=== PATIENT | female | born 1960 | race American Indian/Alaskan Native ===

== ENCOUNTER 2016-09-22 08:42 | Emergency (ER) | payer MEDICARE ==
[2016-09-22] MEDS ORDERED: DUONEB 0.5 MG-3 MG/3 ML SOLN IH ONE (09:37)
[2016-09-22 09:49] LABS: Basophils % (Auto) 0.5 % (0.0-1.8); Eosinophils % (Auto) 2.9 % (0.0-4.3); Hematocrit 34.4 % (30.3-42.9); Hemoglobin 11.2 gm/dl (10.1-14.3); Mean Corpuscular HGB Conc 33 % (30-34); Mean Corpuscular Hemoglobin 28 pg (28-32); Mean Corpuscular Volume 85 fl (79-97); Platelet Count 278 K/mm3 (140-440); Red Blood Count 4.04 M/mm3 (3.65-5.03); Red Cell Distribution Width 15.4 % (13.2-15.2)
[2016-09-22 10:05] LABS: Anion Gap 16 mmol/L; Blood Urea Nitrogen 15 mg/dL (7-17); Carbon Dioxide 24 mmol/L (22-30); Chloride 103.2 mmol/L (98-107); Glucose 94 mg/dL (65-100); Potassium 3.8 mmol/L (3.6-5.0); Sodium 139 mmol/L (137-145)
[2016-09-22 10:49] LABS: Calcium 8.9 mg/dL (8.4-10.2)
--- NOTE | 2016-09-22 10:53 | XRay Report ---
CHEST 2 VIEWS INDICATION: Shortness of breath. COMPARISON: None similar at this institution. FINDINGS: PA and lateral chest radiographs demonstrate slight exaggerated cardiomediastinal silhouette/top normal heart size. No pleural effusions or CHF. Partially imaged lower cervical fusion hardware. Multilevel moderate thoracic spondylosis. CONCLUSION: Slight cardiomegaly, as described. Thank you for the opportunity to participate in this patient's care.
[2016-09-22] MEDS ORDERED: ATROVENT IH ONE (17:57)
[2016-09-22] MEDS ORDERED: PROVENTIL IH ONE (17:57)
[2016-09-22] MEDS ORDERED: MAGNESIUM SULFATE 2GM/50ML 2 GM/50 ML BAG IV ONE (17:58)
--- NOTE | 2016-09-22 18:05 | Emergency Department Report ---
HPI - General Chief Complaint: Dyspnea/Respdistress Time Seen by Provider: 09/22/16 17:44 - HPI HPI: Room 23 The patient is a 56-year-old female presenting with a chief complaint of asthma and right hip pain. The patient states she has had pain in her right hip radiating down her leg for several months. Patient states she's been diagnosed with spinal stenosis in the past. The patient states 3 days ago her asthma began to "flareup." Patient states she developed wheezing and a nonproductive cough associated with shortness of breath consistent with her asthma. The patient states she did not have an inhaler so she went to an urgent care facility but could not afford the co-pay. The patient states she subsequently came to the ED for evaluation. Patient denies any history of fever. Location: Lungs, right hip Duration: [see above] Quality: Shortness of breath Severity: Moderate Modifying factors: [see above] Context: [see above] Mode of transportation: [not driving] ED Past Medical Hx - Past Medical History Previous Medical History?: Yes Hx Hypertension: Yes Hx GERD: Yes Hx Asthma: Yes (chronic bronchitis) Hx COPD: Yes Additional medical history: CAD, hyperthyroid, carpal tunnel - Surgical History Past Surgical History?: Yes Hx Coronary Stent: Yes (4) Hx Cholecystectomy: Yes Additional Surgical History: neck fusion, right hand, back surgery, tonsillectomy, tubal ligation - Social History Smoking Status: Current Some Day Smoker (1/3 pack per day) Substance Use Type: None - Medications Home Medications: Home Medications Medication Instructions Recorded Confirmed Last Taken Type ALBUTEROL Inhaler [Proair] 2 puff IH QID PRN #1 inhalation 09/22/16 Unknown Rx HYDROcodone/APAP 5-325 [[place] 1 - 2 each PO Q6HR PRN #14 tablet 09/22/16 Unknown Rx 5/325] Prednisone [predniSONE 10 mg 10 mg PO .TAPER #1 tab.ds.pk 09/22/16 Unknown Rx (6-Day Pack, 21 Tabs)] ED Review of Systems ROS: Stated complaint: SOB/BACK PAIN Other details as noted in HPI Comment: All other systems reviewed and negative Constitutional: denies: fever Eyes: denies: eye pain, eye discharge, vision change ENT: denies: ear pain, throat pain Respiratory: cough, shortness of breath, wheezing Cardiovascular: denies: chest pain, palpitations Endocrine: no symptoms reported Gastrointestinal: denies: abdominal pain, nausea, diarrhea Genitourinary: denies: urgency, dysuria, discharge Musculoskeletal: arthralgia, myalgia. denies: back pain, joint swelling Skin: denies: rash, lesions Neurological: denies: headache, weakness, paresthesias Psychiatric: denies: anxiety, depression Hematological/Lymphatic: denies: easy bleeding, easy bruising Physical Exam - Physical Exam Vital Signs: Vital Signs 09/22/16 09/22/16 08:57 14:32 Temperature 98.6 F 97.8 F Pulse Rate 80 63 Respiratory 20 16 Rate Blood Pressure 148/100 Blood Pressure 137/96 [Right] O2 Sat by Pulse 99 99 Oximetry Physical Exam: GENERAL: The patient is well-developed well-nourished female lying on stretcher not appearing to be in acute distress. [] HEENT: Normocephalic. Atraumatic. Extraocular motions are intact. Patient has moist mucous membranes. NECK: Supple. No meningitic signs are noted. There is no adenopathy noted. CHEST/LUNGS: Diffuse wheezing. There is no respiratory distress noted. HEART/CARDIOVASCULAR: Regular. There is no tachycardia. There is no gallop rub or murmur. ABDOMEN: Abdomen is soft, nontender. Patient has normal bowel sounds. There is no abdominal distention. SKIN: There is no rash. There is no edema. There is no diaphoresis. NEURO: The patient is awake, alert, and oriented. The patient is cooperative. The patient has normal speech and gait. MUSCULOSKELETAL: There is right buttocks pain rating on the right lower extremity consistent with sciatica. There is no evidence of acute injury. ED Course Vital Signs 09/22/16 09/22/16 08:57 14:32 Temperature 98.6 F 97.8 F Pulse Rate 80 63 Respiratory 20 16 Rate Blood Pressure 148/100 Blood Pressure 137/96 [Right] O2 Sat by Pulse 99 99 Oximetry - Reevaluation(s) Reevaluation #1: 09/22/16 19:57 Patient resting comfortably. Patient states she feels much improved. Lung sounds much improved as the wheezing has essentially disappeared. Patient still has rhonchi. ED Medical Decision Making - Lab Data Result diagrams: 09/22/16 09:29 06/21/17 09:29 Laboratory Tests 09/22/16 09/22/16 09:29 09:29 WBC 7.0 RBC 4.04 Hgb 11.2 Hct 34.4 MCV 85 MCH 28 MCHC 33 RDW 15.4 H Plt Count 278 Lymph % (Auto) 31.2 [place] % (Auto) 10.0 H Eos % (Auto) 2.9 Baso % (Auto) 0.5 Lymph # 2.2 [place] # 0.7 Eos # 0.2 Baso # 0.0 Seg Neutrophils % 55.4 Seg Neutrophils # 3.9 Carbon Dioxide 24 BUN 15 Creatinine 1.0 Estimated GFR 57 BUN/Creatinine Ratio 15.00 Glucose 94 Calcium 8.9 Troponin T < 0.010 Sodium 139, potassium 3.8, chloride 103.2 - EKG Data -: EKG Interpreted by Me EKG shows normal: sinus rhythm Rate: normal - EKG Data When compared to previous EKG there are: previous EKG unavailable Interpretation: other (no ischemic changes seen) - Radiology Data Radiology results: image reviewed (chest x-ray) interpreted by me: Chest x-ray-no focal infiltrates, no pneumothorax - Differential Diagnosis acute asthma exacerbation, pneumonia, bronchitis, sciatica Critical care attestation.: If time is entered above; I have spent that time in minutes in the direct care of this critically ill patient, excluding procedure time. ED Disposition Clinical Impression: Acute asthma exacerbation, Shortness of breath, Sciatica Disposition: - TO HOME OR SELFCARE Is pt being admited?: No Does the pt Need Aspirin: No Condition: Stable Instructions: Asthma (ED), Sciatica (ED) Additional Instructions: Return to the emergency department immediately should you develop worsening symptoms, fever, inability to tolerate food or liquid or any other concerns. Prescriptions: ALBUTEROL Inhaler [Proair] 2 puff IH QID PRN #1 inhalation PRN Reason: Shortness Of Breath HYDROcodone/APAP 5-325 [[place] 5/325] 1 - 2 each PO Q6HR PRN #14 tablet PRN Reason: Pain Prednisone [predniSONE 10 mg (6-Day Pack, 21 Tabs)] 10 mg PO .TAPER #1 tab.ds.pk Referrals: ED ESCOBEDO MD [Staff Physician] - 3-5 Days (Dr. Escobedo is a primary doctor. Please follow up with him for further evaluation) BAKARI DRUMMOND MD [Staff Physician] - 3-5 Days (Dr. Drummond is a roustabout head. Please follow up with him for further evaluation) LUNA BUSTAMANTE MD [Staff Physician] - 3-5 Days (Dr. Bustamante is an orthopedic surgeon. Please follow up with him for further evaluation of her sciatica) Time of Disposition: 20:08
[2016-09-22 22:04] VITALS: BP 130/79
== END 2016-09-22 21:45 | disposition home or self-care (01) ==
LOC: ED 08:42
DX: J45.901 Unspecified asthma with (acute) exacerbation (principal); M54.30 Sciatica, unspecified side; I10 Essential (primary) hypertension; K21.9 Gastro-esophageal reflux disease without esophagitis; J44.9 Chronic obstructive pulmonary disease, unspecified
CPT/HCPCS: 36415; 71020; 80048; 84484; 85025; 93005; 93010; 94640; 96365; 96375; 99284; J2930; J3475

== ENCOUNTER 2016-12-28 17:27 | Emergency (ER) | payer MEDICARE ==
--- NOTE | 2016-12-28 18:00 | Emergency Department Report ---
Chief Complaint: Chest Pain Stated Complaint: CHEST AND BACK PAIN Time Seen by Provider: 12/28/16 17:54 - HPI History of Present Illness: PT c/o intermittent cp x 1 week. PT states the cp started soon after she was dc 'd from hospital after cardiac cath. PT also c/o headaches and blurred vision PT States no changes to her bp medication. PT states she is taking her bp medication - ROS Review of Systems: + nausea - vomiting - Exam Vital Signs: Vital Signs 12/28/16 17:48 Temperature 98.4 F Pulse Rate 91 H Respiratory 18 Rate Blood Pressure 205/123 O2 Sat by Pulse 98 Oximetry Physical Exam: PT is alert and appropriate PT with steady gait gcs 15 MSE screening note: Focused history and physical exam performed. Due to findings the following was ordered: ekg, labs, xr, ct ED Disposition for MSE Condition: Stable
[2016-12-28 18:41] LABS: Basophils % (Auto) 0.7 % (0.0-1.8); Eosinophils % (Auto) 3.8 % (0.0-4.3); Hematocrit 36.8 % (30.3-42.9); Hemoglobin 11.7 gm/dl (10.1-14.3); Mean Corpuscular HGB Conc 32 % (30-34); Mean Corpuscular Hemoglobin 27 pg (28-32); Mean Corpuscular Volume 86 fl (79-97); Platelet Count 299 K/mm3 (140-440); Red Cell Distribution Width 15.2 % (13.2-15.2)
[2016-12-28 18:50] LABS: INR 0.9 (0.87-1.13)
[2016-12-28 18:51] LABS: Partial Thromboplastin Time 27.7 Sec. (24.2-36.6)
[2016-12-28 19:33] LABS: Alanine Aminotransferase 11 units/L (7-56); Albumin 3.8 g/dL (3.9-5); Albumin/Globulin Ratio 0.8 %; Alkaline Phosphatase 78 units/L (35-129); Anion Gap 18 mmol/L; BUN/Creatinine Ratio 17.14; Blood Urea Nitrogen 12 mg/dL (7-17); Calcium 9.3 mg/dL (8.4-10.2); Carbon Dioxide 22 mmol/L (22-30); Chloride 103.2 mmol/L (98-107); Glucose 89 mg/dL (65-100); Potassium 3.4 mmol/L (3.6-5.0); Sodium 140 mmol/L (137-145); Total Protein 8.6 g/dL (6.3-8.2)
--- NOTE | 2016-12-28 20:08 | Cat Scan Report ---
FINAL REPORT PROCEDURE: CT HEAD/BRAIN WO CON TECHNIQUE: Computerized tomography of the head was performed without contrast material. HISTORY: headache, htn 205/123, blurred vision COMPARISON: No prior studies are available for comparison. FINDINGS: Skull and scalp: Normal. Paranasal sinuses: Normal. Ventricles and subarachnoid spaces: Normal. Cerebrum: No evidence of hemorrhage, acute infarction or mass . Cerebellum and brainstem: No evidence of hemorrhage, acute infarction or mass. Vasculature: Normal. Comments: None. IMPRESSION: Normal Examination
[2016-12-28] MEDS ORDERED: MORPHINE IV ONE (20:48)
--- NOTE | 2016-12-28 20:49 | Emergency Department Report ---
ED Chest Pain HPI - General Chief Complaint: Chest Pain Stated Complaint: CHEST AND BACK PAIN Time Seen by Provider: 12/28/16 17:54 Source: patient Mode of arrival: Ambulatory Limitations: No Limitations - History of Present Illness Initial Comments: She is a 56-year-old female past medical history of coronary artery disease who presents with headache and chest pain. Patient states that her chest pain has been going on for 1 week. Patient states that the onset of chest and headache was gradual. Severity scale (0 -10): 7 - Related Data Home Medications Medication Instructions Recorded Confirmed Last Taken Cyanocobalamin [Vitamin B-12] 1,000 mcg PO DAILY 12/17/16 12/28/16 12/28/16 Naltrexone (Nf) [Revia (Nf)] 50 mg PO QAM 12/17/16 12/28/16 12/28/16 Quetiapine Fumarate [QUEtiapine 400 mg PO HS 12/17/16 12/28/16 12/28/16 Fumarate] buPROPion XL [Wellbutrin XL] 150 mg PO QAM 12/17/16 12/28/16 12/28/16 traZODone [Desyrel] 100 mg PO QDAY 12/17/16 12/28/16 12/16/16 Albuterol Sulfate [Ventolin HFA] 1 puff PO PRN PRN 12/28/16 12/28/16 Unknown AtorvaSTATin [Lipitor] 80 mg PO QDAY 12/28/16 12/28/16 Unknown Carvedilol [Coreg] 25 mg PO QDAY 12/28/16 12/28/16 Unknown Duloxetine HCl [DULoxetine] 60 mg PO QDAY 12/28/16 12/28/16 Unknown Escitalopram [Lexapro] 10 mg PO QDAY 12/28/16 12/28/16 Unknown Ferrous Sulfate [Feosol 325 MG tab] 0.5 tab PO QDAY 12/28/16 12/28/16 Unknown Furosemide [Lasix TAB] 40 mg PO QDAY 12/28/16 12/28/16 Unknown HYDROcodone/APAP 7.5-325 [[place] 1 tab PO PRN PRN 12/28/16 12/28/16 Unknown 7.5-325 mg TAB] ISOSORBIDE MONOnitrate [Imdur ER] 30 mg PO PRN 12/28/16 12/28/16 Unknown Labetalol [Normodyne TAB] 200 mg PO QDAY 12/28/16 12/28/16 Unknown Levothyroxine [Synthroid] 100 mcg PO QDAY 12/28/16 12/28/16 Unknown Lisinopril [Zestril] 40 mg PO QDAY 12/28/16 12/28/16 Unknown Mirtazapine [Remeron] 30 mg PO QDAY 12/28/16 12/28/16 Unknown Nitroglycerin [Nitrostat] 0.4 mg PO PRN PRN 12/28/16 12/28/16 Unknown Olanzapine [ZyPREXA] 20 mg PO PRN 12/28/16 12/28/16 Unknown Pantoprazole [Protonix TAB] 40 mg PO QDAY 12/28/16 12/28/16 Unknown amLODIPine [Norvasc] 10 mg PO QDAY 12/28/16 12/28/16 Unknown hydrOXYzine PAMOATE [Vistaril] 25 mg PO QDAY 12/28/16 12/28/16 Unknown Previous Rx's Medication Instructions Recorded Last Taken Type ALBUTEROL Inhaler [ProAir HFA 2 puff IH Q4H PRN #1 inha 12/20/16 12/28/16 Rx Inhaler] Aspirin EC [Aspirin Enteric Coated 81 mg PO QDAY #30 tablet 12/20/16 12/28/16 Rx TAB] Clopidogrel [Plavix] 75 mg PO QDAY #30 tablet 12/20/16 12/28/16 Rx Gabapentin [Neurontin] 600 mg PO BID #60 tablet 12/20/16 12/28/16 Rx Ibuprofen [Motrin 600 MG tab] 600 mg PO Q12H PRN #60 tablet 12/20/16 12/28/16 Rx Levothyroxine [Synthroid] 150 mcg PO QAM #30 tablet 12/20/16 12/28/16 Rx Butalb/Acetamin/Caff 50-325-40 1 tab PO Q6HR PRN #15 tab 12/28/16 Unknown Rx [Fioricet] Allergies Allergy/AdvReac Type Severity Reaction Status Date / Time No Known Allergies Allergy Verified 12/17/16 11:28 Heart Score - HEART Score History: Slightly suspicious EKG: Normal Age: 45-65 Risk factors: > 3 risk factors or hx of atherosclerotic disease Troponin: < normal limit HEART Score: 3 ED Review of Systems ROS: Stated complaint: CHEST AND BACK PAIN Other details as noted in HPI Constitutional: denies: chills, fever Eyes: denies: eye pain, eye discharge, vision change ENT: denies: ear pain, throat pain Respiratory: denies: cough, shortness of breath, wheezing Cardiovascular: chest pain. denies: palpitations Endocrine: no symptoms reported Gastrointestinal: denies: abdominal pain, nausea, diarrhea Genitourinary: denies: urgency, dysuria, discharge Musculoskeletal: denies: back pain, joint swelling, arthralgia Skin: denies: rash, lesions Neurological: other (tension headache). denies: headache, weakness, paresthesias Psychiatric: denies: anxiety, depression Hematological/Lymphatic: denies: easy bleeding, easy bruising ED Past Medical Hx - Past Medical History Hx Hypertension: Yes Hx Diabetes: No Hx GERD: Yes Hx Asthma: Yes (chronic bronchitis) Hx COPD: Yes Hx HIV: No Additional medical history: CAD, hyperthyroid, carpal tunnel - Surgical History Hx Coronary Stent: Yes (4) Hx Cholecystectomy: Yes Additional Surgical History: neck fusion, right hand, back surgery, tonsillectomy, tubal ligation - Social History Smoking Status: Current Every Day Smoker Substance Use Type: None - Medications Home Medications: Home Medications Medication Instructions Recorded Confirmed Last Taken Type Cyanocobalamin [Vitamin B-12] 1,000 mcg PO DAILY 12/17/16 12/28/16 12/28/16 History Naltrexone (Nf) [Revia (Nf)] 50 mg PO QAM 12/17/16 12/28/16 12/28/16 History Quetiapine Fumarate [QUEtiapine 400 mg PO HS 12/17/16 12/28/16 12/28/16 History Fumarate] buPROPion XL [Wellbutrin XL] 150 mg PO QAM 12/17/16 12/28/16 12/28/16 History traZODone [Desyrel] 100 mg PO QDAY 12/17/16 12/28/16 12/16/16 History ALBUTEROL Inhaler [ProAir HFA 2 puff IH Q4H PRN #1 inha 12/20/16 12/28/16 Rx Inhaler] Aspirin EC [Aspirin Enteric Coated 81 mg PO QDAY #30 tablet 12/20/16 12/28/16 Rx TAB] Clopidogrel [Plavix] 75 mg PO QDAY #30 tablet 12/20/16 12/28/16 12/28/16 Rx Gabapentin [Neurontin] 600 mg PO BID #60 tablet 12/20/16 12/28/16 12/28/16 Rx Ibuprofen [Motrin 600 MG tab] 600 mg PO Q12H PRN #60 tablet 12/20/16 12/28/16 Rx Levothyroxine [Synthroid] 150 mcg PO QAM #30 tablet 12/20/16 12/28/16 12/28/16 Rx Albuterol Sulfate [Ventolin HFA] 1 puff PO PRN PRN 12/28/16 12/28/16 Unknown History AtorvaSTATin [Lipitor] 80 mg PO QDAY 12/28/16 12/28/16 Unknown History Butalb/Acetamin/Caff 50-325-40 1 tab PO Q6HR PRN #15 tab 12/28/16 Unknown Rx [Fioricet] Carvedilol [Coreg] 25 mg PO QDAY 12/28/16 12/28/16 Unknown History Duloxetine HCl [DULoxetine] 60 mg PO QDAY 12/28/16 12/28/16 Unknown History Escitalopram [Lexapro] 10 mg PO QDAY 12/28/16 12/28/16 Unknown History Ferrous Sulfate [Feosol 325 MG tab] 0.5 tab PO QDAY 12/28/16 12/28/16 Unknown History Furosemide [Lasix TAB] 40 mg PO QDAY 12/28/16 12/28/16 Unknown History HYDROcodone/APAP 7.5-325 [[place] 1 tab PO PRN PRN 12/28/16 12/28/16 Unknown History 7.5-325 mg TAB] ISOSORBIDE MONOnitrate [Imdur ER] 30 mg PO PRN 12/28/16 12/28/16 Unknown History Labetalol [Normodyne TAB] 200 mg PO QDAY 12/28/16 12/28/16 Unknown History Levothyroxine [Synthroid] 100 mcg PO QDAY 12/28/16 12/28/16 Unknown History Lisinopril [Zestril] 40 mg PO QDAY 12/28/16 12/28/16 Unknown History Mirtazapine [Remeron] 30 mg PO QDAY 12/28/16 12/28/16 Unknown History Nitroglycerin [Nitrostat] 0.4 mg PO PRN PRN 12/28/16 12/28/16 Unknown History Olanzapine [ZyPREXA] 20 mg PO PRN 12/28/16 12/28/16 Unknown History Pantoprazole [Protonix TAB] 40 mg PO QDAY 12/28/16 12/28/16 Unknown History amLODIPine [Norvasc] 10 mg PO QDAY 12/28/16 12/28/16 Unknown History hydrOXYzine PAMOATE [Vistaril] 25 mg PO QDAY 12/28/16 12/28/16 Unknown History ED Physical Exam - General Limitations: No Limitations ED Course Vital Signs 12/28/16 12/28/16 12/28/16 17:48 19:30 19:45 Temperature 98.4 F Pulse Rate 91 H 79 Respiratory 18 18 Rate Blood Pressure 205/123 181/122 O2 Sat by Pulse 98 97 98 Oximetry 12/28/16 12/28/16 12/28/16 20:00 20:15 20:30 Temperature Pulse Rate 77 78 76 Respiratory 21 19 20 Rate Blood Pressure 178/113 168/109 159/112 O2 Sat by Pulse 96 96 95 Oximetry 12/28/16 12/28/16 12/28/16 20:45 21:00 21:15 Temperature Pulse Rate 81 80 87 Respiratory 22 14 18 Rate Blood Pressure 154/101 154/101 145/117 O2 Sat by Pulse 96 95 97 Oximetry JHONATAN score - Jhonatan Score Age > 65: (0) No Aspirin use within the Past 7 Days: (0) No 3 or more CAD Risk Factors: (1) Yes 2 or more Angina events in past 24 hrs: (1) Yes Known CAD with more than 50% Stenosis: (0) No Elevated Cardiac Markers: (0) No ST Deviation Greater than 0.5mm: (0) No JHONATAN Score: 2 ED Medical Decision Making - Lab Data Result diagrams: 12/28/16 18:19 12/28/16 18:19 Lab Results 12/28/16 12/28/16 12/28/16 Range/Units 18:19 18:19 18:19 WBC 6.0 (4.5-11.0) K/mm3 RBC 4.30 (3.65-5.03) M/mm3 Hgb 11.7 (10.1-14.3) gm/dl Hct 36.8 (30.3-42.9) % MCV 86 (79-97) fl MCH 27 L (28-32) pg MCHC 32 (30-34) % RDW 15.2 (13.2-15.2) % Plt Count 299 (140-440) K/mm3 Lymph % (Auto) 39.9 H (13.4-35.0) % [place] % (Auto) 12.9 H (0.0-7.3) % Eos % (Auto) 3.8 (0.0-4.3) % Baso % (Auto) 0.7 (0.0-1.8) % Lymph # 2.4 (1.2-5.4) K/mm3 [place] # 0.8 (0.0-0.8) K/mm3 Eos # 0.2 (0.0-0.4) K/mm3 Baso # 0.0 (0.0-0.1) K/mm3 Seg Neutrophils % 42.7 (40.0-70.0) % Seg Neutrophils # 2.6 (1.8-7.7) K/mm3 PT 12.1 L (12.2-14.9) Sec. INR 0.90 (0.87-1.13) APTT 27.7 (24.2-36.6) Sec. Sodium 140 (137-145) mmol/L Potassium 3.4 L (3.6-5.0) mmol/L Chloride 103.2 (98-107) mmol/L Carbon Dioxide 22 (22-30) mmol/L Anion Gap 18 mmol/L BUN 12 (7-17) mg/dL Creatinine 0.7 (0.7-1.2) mg/dL Estimated GFR > 60 ml/min BUN/Creatinine Ratio 17.14 % Glucose 89 (65-100) mg/dL Calcium 9.3 (8.4-10.2) mg/dL Total Bilirubin 0.20 (0.1-1.2) mg/dL AST 19 (5-40) units/L ALT 11 (7-56) units/L Alkaline Phosphatase 78 (35-129) units/L Troponin T < 0.010 (0.00-0.029) ng/mL NT-Pro-B Natriuret Pep (0-900) pg/mL Total Protein 8.6 H (6.3-8.2) g/dL Albumin 3.8 L (3.9-5) g/dL Albumin/Globulin Ratio 0.8 % 12/28/16 Range/Units 18:19 WBC (4.5-11.0) K/mm3 RBC (3.65-5.03) M/mm3 Hgb (10.1-14.3) gm/dl Hct (30.3-42.9) % MCV (79-97) fl MCH (28-32) pg MCHC (30-34) % RDW (13.2-15.2) % Plt Count (140-440) K/mm3 Lymph % (Auto) (13.4-35.0) % [place] % (Auto) (0.0-7.3) % Eos % (Auto) (0.0-4.3) % Baso % (Auto) (0.0-1.8) % Lymph # (1.2-5.4) K/mm3 [place] # (0.0-0.8) K/mm3 Eos # (0.0-0.4) K/mm3 Baso # (0.0-0.1) K/mm3 Seg Neutrophils % (40.0-70.0) % Seg Neutrophils # (1.8-7.7) K/mm3 PT (12.2-14.9) Sec. INR (0.87-1.13) APTT (24.2-36.6) Sec. Sodium (137-145) mmol/L Potassium (3.6-5.0) mmol/L Chloride (98-107) mmol/L Carbon Dioxide (22-30) mmol/L Anion Gap mmol/L BUN (7-17) mg/dL Creatinine (0.7-1.2) mg/dL Estimated GFR ml/min BUN/Creatinine Ratio % Glucose (65-100) mg/dL Calcium (8.4-10.2) mg/dL Total Bilirubin (0.1-1.2) mg/dL AST (5-40) units/L ALT (7-56) units/L Alkaline Phosphatase (35-129) units/L Troponin T (0.00-0.029) ng/mL NT-Pro-B Natriuret Pep 124.7 (0-900) pg/mL Total Protein (6.3-8.2) g/dL Albumin (3.9-5) g/dL Albumin/Globulin Ratio % - EKG Data -: EKG Interpreted by Me - EKG Data 12/29/16 02:01 EKG interpreted by me no ST segment elevation or T-wave inversion normal sinus rhythm. - Radiology Data Radiology results: report reviewed, image reviewed CT head: Shows no acute intracranial process Chest x-ray: Shows no acute cardiopulmonary disease mild cardiomegaly - Medical Decision Making Chief medical diagnosis: Tension headache Differential medical diagnosis: Costochondritis, pneumonia, pneumothorax, migraine headache CBC, CMP, EKG, IV Reglan, IV Benadryl, CT head, chest x-ray Patient's clinical symptoms are most consistent with tension headache. Patient is feeling better after IV Reglan and Benadryl. Patient unlikely has any acute coronary syndrome. Due to having a negative cath 1 week ago. Critical care attestation.: If time is entered above; I have spent that time in minutes in the direct care of this critically ill patient, excluding procedure time. ED Disposition Clinical Impression: Tension headache Chest pain Qualifiers: Chest pain type: other chest pain Qualified Code(s): R07.89 - Other chest pain ; R07.8 - Other chest pain Disposition: - TO HOME OR SELFCARE Is pt being admited?: No Does the pt Need Aspirin: No Condition: Stable Instructions: Tension Headache (ED), Chest Pain (ED) Prescriptions: Butalb/Acetamin/Caff 50-325-40 [Fioricet] 1 tab PO Q6HR PRN #15 tab PRN Reason: Headache Referrals: PRIMARY CARE, [Primary Care Provider] - 3-5 Days
[2016-12-28] MEDS ORDERED: TYLENOL PO ONE (21:19)
[2016-12-28 21:21] VITALS: BP 145/117
[2016-12-28] MEDS ORDERED: BENADRYL IV ONE (21:24)
[2016-12-28] MEDS ORDERED: REGLAN IV ONE (21:24)
--- NOTE | 2016-12-29 07:50 | XRay Report ---
Chest 2 views: Compared to 12/17/16. History: Chest pain. Findings: Borderline cardiomegaly. Trachea is midline. No consolidation, pneumothorax or pleural effusion. Impression: No acute cardiopulmonary findings.
== END 2016-12-28 22:16 | disposition home or self-care (01) ==
LOC: ED 17:27
DX: G44.209 Tension-type headache, unspecified, not intractable (principal); R07.89 Other chest pain; I10 Essential (primary) hypertension; J44.9 Chronic obstructive pulmonary disease, unspecified; F17.210 Nicotine dependence, cigarettes, uncomplicated; K21.9 Gastro-esophageal reflux disease without esophagitis; E05.90 Thyrotoxicosis, unspecified without thyrotoxic crisis or storm; I25.10 Atherosclerotic heart disease of native coronary artery without angina pectoris; Z95.1 Presence of aortocoronary bypass graft; Z79.82 Long term (current) use of aspirin
CPT/HCPCS: 36415; 70450; 71020; 80053; 83880; 84484; 85025; 85610; 85730; 93005; 93010; 96374; 96375; 99284; J1200; J2765

== ENCOUNTER 2017-01-14 08:02 | Emergency (ER) | payer MEDICARE ==
[2017-01-14] MEDS ORDERED: ASPIRIN PO ONE (08:24)
[2017-01-14 08:55] LABS: Basophils % (Auto) 0.9 % (0.0-1.8); Eosinophils % (Auto) 3.1 % (0.0-4.3); Hematocrit 38.7 % (30.3-42.9); Hemoglobin 12.9 gm/dl (10.1-14.3); Mean Corpuscular HGB Conc 33 % (30-34); Mean Corpuscular Hemoglobin 28 pg (28-32); Mean Corpuscular Volume 84 fl (79-97); Platelet Count 274 K/mm3 (140-440); Red Blood Count 4.63 M/mm3 (3.65-5.03); Red Cell Distribution Width 14.7 % (13.2-15.2); White Blood Count 4.3 K/mm3 (4.5-11.0)
[2017-01-14 09:14] LABS: Anion Gap 20 mmol/L; BUN/Creatinine Ratio 16; Blood Urea Nitrogen 14 mg/dL (7-17); Calcium 9.5 mg/dL (8.4-10.2); Carbon Dioxide 24 mmol/L (22-30); Chloride 101.7 mmol/L (98-107); Glucose 96 mg/dL (65-100); Potassium 3.7 mmol/L (3.6-5.0); Sodium 142 mmol/L (137-145)
[2017-01-14] MEDS ORDERED: NORCO 10/325 PO ONE (21:35)
--- NOTE | 2017-01-14 23:36 | Emergency Department Report ---
ED General Adult HPI - General Chief complaint: Chest Pain Stated complaint: CHEST PAIN,BACK PAIN Time Seen by Provider: 01/14/17 21:24 Source: patient Mode of arrival: Ambulatory Limitations: No Limitations - History of Present Illness Initial comments: She is a 56-year-old female past medical history of hypertension and GERD who presents with back pain and headache that's been going on for the last 4 days. Patient states that her back pain is an 8 out of 10 bending makes it worse and nothing makes it better. Patient states it's an aching type of pain that radiates down her legs. She states that the pain is intermittent. Patient also states that she has some slight chest pain but it's gone at the moment. She also states that she feels weak and that she is often short of breath. Patient denies having any nausea or vomiting. Severity scale (0 -10): 7 - Related Data Home Medications Medication Instructions Recorded Confirmed Last Taken Cyanocobalamin [Vitamin B-12] 1,000 mcg PO DAILY 12/17/16 12/28/16 12/28/16 Naltrexone (Nf) [Revia (Nf)] 50 mg PO QAM 12/17/16 12/28/16 12/28/16 Quetiapine Fumarate [QUEtiapine 400 mg PO HS 12/17/16 12/28/16 12/28/16 Fumarate] buPROPion XL [Wellbutrin XL] 150 mg PO QAM 12/17/16 12/28/16 12/28/16 traZODone [Desyrel] 100 mg PO QDAY 12/17/16 12/28/16 12/16/16 Albuterol Sulfate [Ventolin HFA] 1 puff PO PRN PRN 12/28/16 12/28/16 Unknown AtorvaSTATin [Lipitor] 80 mg PO QDAY 12/28/16 12/28/16 Unknown Carvedilol [Coreg] 25 mg PO QDAY 12/28/16 12/28/16 Unknown Duloxetine HCl [DULoxetine] 60 mg PO QDAY 12/28/16 12/28/16 Unknown Escitalopram [Lexapro] 10 mg PO QDAY 12/28/16 12/28/16 Unknown Ferrous Sulfate [Feosol 325 MG tab] 0.5 tab PO QDAY 12/28/16 12/28/16 Unknown Furosemide [Lasix TAB] 40 mg PO QDAY 12/28/16 12/28/16 Unknown HYDROcodone/APAP 7.5-325 [[place] 1 tab PO PRN PRN 12/28/16 12/28/16 Unknown 7.5-325 mg TAB] ISOSORBIDE MONOnitrate [Imdur ER] 30 mg PO PRN 12/28/16 12/28/16 Unknown Labetalol [Normodyne TAB] 200 mg PO QDAY 12/28/16 12/28/16 Unknown Levothyroxine [Synthroid] 100 mcg PO QDAY 12/28/16 12/28/16 Unknown Lisinopril [Zestril] 40 mg PO QDAY 12/28/16 12/28/16 Unknown Mirtazapine [Remeron] 30 mg PO QDAY 12/28/16 12/28/16 Unknown Nitroglycerin [Nitrostat] 0.4 mg PO PRN PRN 12/28/16 12/28/16 Unknown Olanzapine [ZyPREXA] 20 mg PO PRN 12/28/16 12/28/16 Unknown Pantoprazole [Protonix TAB] 40 mg PO QDAY 12/28/16 12/28/16 Unknown amLODIPine [Norvasc] 10 mg PO QDAY 12/28/16 12/28/16 Unknown hydrOXYzine PAMOATE [Vistaril] 25 mg PO QDAY 12/28/16 12/28/16 Unknown Previous Rx's Medication Instructions Recorded Last Taken Type ALBUTEROL Inhaler [ProAir HFA 2 puff IH Q4H PRN #1 inha 12/20/16 12/28/16 Rx Inhaler] Aspirin EC [Aspirin Enteric Coated 81 mg PO QDAY #30 tablet 12/20/16 12/28/16 Rx TAB] Clopidogrel [Plavix] 75 mg PO QDAY #30 tablet 12/20/16 12/28/16 Rx Gabapentin [Neurontin] 600 mg PO BID #60 tablet 12/20/16 12/28/16 Rx Ibuprofen [Motrin 600 MG tab] 600 mg PO Q12H PRN #60 tablet 12/20/16 12/28/16 Rx Levothyroxine [Synthroid] 150 mcg PO QAM #30 tablet 12/20/16 12/28/16 Rx Butalb/Acetamin/Caff 50-325-40 1 tab PO Q6HR PRN #15 tab 12/28/16 Unknown Rx [Fioricet] Cyclobenzaprine HCl [Flexeril 5 MG 5 mg PO TID #20 tab 01/15/17 Unknown Rx TAB] Allergies Allergy/AdvReac Type Severity Reaction Status Date / Time No Known Allergies Allergy Verified 12/17/16 11:28 ED Review of Systems ROS: Stated complaint: CHEST PAIN,BACK PAIN Other details as noted in HPI Constitutional: weakness. denies: chills, fever Eyes: denies: eye pain, eye discharge, vision change ENT: denies: ear pain, throat pain Respiratory: denies: cough, shortness of breath, wheezing Cardiovascular: chest pain. denies: palpitations Endocrine: no symptoms reported Gastrointestinal: denies: abdominal pain, nausea, diarrhea Genitourinary: denies: urgency, dysuria, discharge Musculoskeletal: back pain. denies: joint swelling, arthralgia Skin: denies: rash, lesions Neurological: denies: headache, weakness, paresthesias Psychiatric: denies: anxiety, depression Hematological/Lymphatic: denies: easy bleeding, easy bruising ED Past Medical Hx - Past Medical History Hx Hypertension: Yes Hx Diabetes: No Hx GERD: Yes Hx Asthma: Yes (chronic bronchitis) Hx COPD: Yes Hx HIV: No Additional medical history: CAD, hyperthyroid, carpal tunnel - Surgical History Hx Coronary Stent: Yes (4) Hx Cholecystectomy: Yes Additional Surgical History: neck fusion, right hand, back surgery, tonsillectomy, tubal ligation - Social History Smoking Status: Current Some Day Smoker Substance Use Type: None - Medications Home Medications: Home Medications Medication Instructions Recorded Confirmed Last Taken Type Cyanocobalamin [Vitamin B-12] 1,000 mcg PO DAILY 12/17/16 12/28/16 12/28/16 History Naltrexone (Nf) [Revia (Nf)] 50 mg PO QAM 12/17/16 12/28/16 12/28/16 History Quetiapine Fumarate [QUEtiapine 400 mg PO HS 12/17/16 12/28/16 12/28/16 History Fumarate] buPROPion XL [Wellbutrin XL] 150 mg PO QAM 12/17/16 12/28/16 12/28/16 History traZODone [Desyrel] 100 mg PO QDAY 12/17/16 12/28/1617 History ALBUTEROL Inhaler [ProAir HFA 2 puff IH Q4H PRN #1 inha 12/20/16 12/28/16 Rx Inhaler] Aspirin EC [Aspirin Enteric Coated 81 mg PO QDAY #30 tablet 12/20/16 12/28/16 Rx TAB] Clopidogrel [Plavix] 75 mg PO QDAY #30 tablet 12/20/16 12/28/16 12/28/16 Rx Gabapentin [Neurontin] 600 mg PO BID #60 tablet 12/20/16 12/28/16 12/28/16 Rx Ibuprofen [Motrin 600 MG tab] 600 mg PO Q12H PRN #60 tablet 12/20/16 12/28/16 Rx Levothyroxine [Synthroid] 150 mcg PO QAM #30 tablet 12/20/16 12/28/16 12/28/16 Rx Albuterol Sulfate [Ventolin HFA] 1 puff PO PRN PRN 12/28/16 12/28/16 Unknown History AtorvaSTATin [Lipitor] 80 mg PO QDAY 12/28/16 12/28/16 Unknown History Butalb/Acetamin/Caff 50-325-40 1 tab PO Q6HR PRN #15 tab 12/28/16 Unknown Rx [Fioricet] Carvedilol [Coreg] 25 mg PO QDAY 12/28/16 12/28/16 Unknown History Duloxetine HCl [DULoxetine] 60 mg PO QDAY 12/28/16 12/28/16 Unknown History Escitalopram [Lexapro] 10 mg PO QDAY 12/28/16 12/28/16 Unknown History Ferrous Sulfate [Feosol 325 MG tab] 0.5 tab PO QDAY 12/28/16 12/28/16 Unknown History Furosemide [Lasix TAB] 40 mg PO QDAY 12/28/16 12/28/16 Unknown History HYDROcodone/APAP 7.5-325 [[place] 1 tab PO PRN PRN 12/28/16 12/28/16 Unknown History 7.5-325 mg TAB] ISOSORBIDE MONOnitrate [Imdur ER] 30 mg PO PRN 12/28/16 12/28/16 Unknown History Labetalol [Normodyne TAB] 200 mg PO QDAY 12/28/16 12/28/16 Unknown History Levothyroxine [Synthroid] 100 mcg PO QDAY 12/28/16 12/28/16 Unknown History Lisinopril [Zestril] 40 mg PO QDAY 12/28/16 12/28/16 Unknown History Mirtazapine [Remeron] 30 mg PO QDAY 12/28/16 12/28/16 Unknown History Nitroglycerin [Nitrostat] 0.4 mg PO PRN PRN 12/28/16 12/28/16 Unknown History Olanzapine [ZyPREXA] 20 mg PO PRN 12/28/16 12/28/16 Unknown History Pantoprazole [Protonix TAB] 40 mg PO QDAY 12/28/16 12/28/16 Unknown History amLODIPine [Norvasc] 10 mg PO QDAY 12/28/16 12/28/16 Unknown History hydrOXYzine PAMOATE [Vistaril] 25 mg PO QDAY 12/28/16 12/28/16 Unknown History Cyclobenzaprine HCl [Flexeril 5 MG 5 mg PO TID #20 tab 01/15/17 Unknown Rx TAB] ED Physical Exam - General Limitations: No Limitations General appearance: alert, in no apparent distress - Head Head exam: Present: atraumatic, normocephalic - Eye Eye exam: Present: normal appearance - ENT ENT exam: Present: mucous membranes moist - Neck Neck exam: Present: normal inspection - Respiratory Respiratory exam: Present: normal lung sounds bilaterally. Absent: respiratory distress - Cardiovascular Cardiovascular Exam: Present: regular rate, normal rhythm. Absent: systolic murmur, diastolic murmur, rubs, gallop - GI/Abdominal GI/Abdominal exam: Present: soft, normal bowel sounds - Extremities Exam Extremities exam: Present: normal inspection - Back Exam Back exam: Present: normal inspection - Neurological Exam Neurological exam: Present: alert, oriented X3 - Psychiatric Psychiatric exam: Present: normal affect, normal mood - Skin Skin exam: Present: warm, dry, intact, normal color. Absent: rash ED Course Vital Signs 01/14/17 01/14/17 01/14/17 08:19 21:45 22:00 Temperature 99.1 F 98.1 F Pulse Rate 74 72 Respiratory 16 16 Rate Blood Pressure 139/100 137/74 Blood Pressure 147/78 [Left] O2 Sat by Pulse 98 98 95 Oximetry 01/14/17 23:01 Temperature Pulse Rate Respiratory Rate Blood Pressure 137/86 Blood Pressure [Left] O2 Sat by Pulse 99 Oximetry ED Medical Decision Making - Lab Data Result diagrams: 01/14/17 08:35 01/14/17 08:35 Lab Results 01/14/17 01/14/17 01/14/17 Range/Units 08:35 08:35 11:33 WBC 4.3 L (4.5-11.0) K/mm3 RBC 4.63 (3.65-5.03) M/mm3 Hgb 12.9 (10.1-14.3) gm/dl Hct 38.7 (30.3-42.9) % MCV 84 (79-97) fl MCH 28 (28-32) pg MCHC 33 (30-34) % RDW 14.7 (13.2-15.2) % Plt Count 274 (140-440) K/mm3 Lymph % (Auto) 41.0 H (13.4-35.0) % [place] % (Auto) 15.7 H (0.0-7.3) % Eos % (Auto) 3.1 (0.0-4.3) % Baso % (Auto) 0.9 (0.0-1.8) % Lymph # 1.7 (1.2-5.4) K/mm3 [place] # 0.7 (0.0-0.8) K/mm3 Eos # 0.1 (0.0-0.4) K/mm3 Baso # 0.0 (0.0-0.1) K/mm3 Seg Neutrophils % 39.3 L (40.0-70.0) % Seg Neutrophils # 1.7 L (1.8-7.7) K/mm3 Sodium 142 (137-145) mmol/L Potassium 3.7 (3.6-5.0) mmol/L Chloride 101.7 (98-107) mmol/L Carbon Dioxide 24 (22-30) mmol/L Anion Gap 20 mmol/L BUN 14 (7-17) mg/dL Creatinine 0.9 (0.7-1.2) mg/dL Estimated GFR > 60 ml/min BUN/Creatinine Ratio 16 % Glucose 96 (65-100) mg/dL Calcium 9.5 (8.4-10.2) mg/dL Troponin T < 0.010 < 0.010 (0.00-0.029) ng/mL 01/14/17 Range/Units 14:45 WBC (4.5-11.0) K/mm3 RBC (3.65-5.03) M/mm3 Hgb (10.1-14.3) gm/dl Hct (30.3-42.9) % MCV (79-97) fl MCH (28-32) pg MCHC (30-34) % RDW (13.2-15.2) % Plt Count (140-440) K/mm3 Lymph % (Auto) (13.4-35.0) % [place] % (Auto) (0.0-7.3) % Eos % (Auto) (0.0-4.3) % Baso % (Auto) (0.0-1.8) % Lymph # (1.2-5.4) K/mm3 [place] # (0.0-0.8) K/mm3 Eos # (0.0-0.4) K/mm3 Baso # (0.0-0.1) K/mm3 Seg Neutrophils % (40.0-70.0) % Seg Neutrophils # (1.8-7.7) K/mm3 Sodium (137-145) mmol/L Potassium (3.6-5.0) mmol/L Chloride (98-107) mmol/L Carbon Dioxide (22-30) mmol/L Anion Gap mmol/L BUN (7-17) mg/dL Creatinine (0.7-1.2) mg/dL Estimated GFR ml/min BUN/Creatinine Ratio % Glucose (65-100) mg/dL Calcium (8.4-10.2) mg/dL Troponin T < 0.010 (0.00-0.029) ng/mL - EKG Data -: EKG Interpreted by Me - EKG Data 01/14/17 23:51 EKG shows normal sinus rhythm normal axis Q waves in septal leads. - Radiology Data Radiology results: image reviewed X-ray lumbar spine: Shows no acute osseous injury - Medical Decision Making Chief medical diagnosis: Lumbar sacral strain Differential medical diagnosis: Herniated disc, pinched nerve CBC, CMP, x-ray, oral pain medication, troponin and EKG Since troponin and laboratory findings are unremarkable I will send patient home and outpatient follow-up with primary care physician. Patient pain is resolved. I will send patient with Flexeril. Critical care attestation.: If time is entered above; I have spent that time in minutes in the direct care of this critically ill patient, excluding procedure time. ED Disposition Clinical Impression: Back pain Qualifiers: Back pain location: low back pain Chronicity: unspecified Back pain laterality : unspecified Sciatica presence: with sciatica Sciatica laterality: bilateral sciatica Qualified Code(s): M54.42 - Lumbago with sciatica, left side Chest pain Qualifiers: Chest pain type: other chest pain Qualified Code(s): R07.89 - Other chest pain COPD (chronic obstructive pulmonary disease) Qualifiers: COPD type: unspecified COPD Qualified Code(s): J44.9 - Chronic obstructive pulmonary disease, unspecified Disposition: DC-01 TO HOME OR SELFCARE Is pt being admited?: No Does the pt Need Aspirin: No Condition: Stable Instructions: Chest Pain (ED), Chronic Obstructive Pulmonary Disease (ED) Prescriptions: Cyclobenzaprine HCl [Flexeril 5 MG TAB] 5 mg PO TID #20 tab Referrals: COLLINS CR MD [Staff Physician] - 3-5 Days
[2017-01-15 01:00] VITALS: BP 137/61
--- NOTE | 2017-01-15 09:21 | XRay Report ---
XRAY LUMBAR SPINE THREE VIEWS: 01/14/17 08:02:00 CLINICAL: Low back pain with sciatica. FINDINGS: Normal vertebral body height and alignment. Disc space narrowing at L5-S1. Lower lumbar facet joint sclerosis which is most prominent at L4-5. The pedicles are intact. No fracture. Normal soft tissues. IMPRESSION: L5-S1 degenerative disc disease and multilevel facet joint arthropathy.
== END 2017-01-15 00:50 | disposition home or self-care (01) ==
LOC: ED 08:02
DX: M54.42 Lumbago with sciatica, left side (principal); R07.89 Other chest pain; J44.9 Chronic obstructive pulmonary disease, unspecified; K21.9 Gastro-esophageal reflux disease without esophagitis; J45.909 Unspecified asthma, uncomplicated; F17.200 Nicotine dependence, unspecified, uncomplicated
CPT/HCPCS: 36415; 72100; 80048; 84484; 85025; 93005; 93010

== ENCOUNTER 2017-02-15 17:35 | Emergency (ER) | payer MEDICARE ==
[2017-02-15] MEDS ORDERED: NORCO 7.5/325 PO ONE (20:50)
[2017-02-15] MEDS ORDERED: FLEXERIL PO ONE (20:50)
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
[2017-02-15 21:15] LABS: Hematocrit 36.4 % (30.3-42.9); Mean Corpuscular HGB Conc 33 % (30-34); Mean Corpuscular Hemoglobin 27 pg (28-32); Mean Corpuscular Volume 83 fl (79-97); Platelet Count 261 K/mm3 (140-440); Red Blood Count 4.37 M/mm3 (3.65-5.03); Red Cell Distribution Width 14.3 % (13.2-15.2); White Blood Count 6.4 K/mm3 (4.5-11.0)
[2017-02-15 21:35] LABS: Anion Gap 18 mmol/L; BUN/Creatinine Ratio 19; Blood Urea Nitrogen 13 mg/dL (7-17); Calcium 8.7 mg/dL (8.4-10.2); Carbon Dioxide 25 mmol/L (22-30); Chloride 99.3 mmol/L (98-107); Glucose 163 mg/dL (65-100); Potassium 3.2 mmol/L (3.6-5.0); Sodium 139 mmol/L (137-145)
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
[2017-02-16 00:09] VITALS: BP 136/84
== END 2017-02-16 00:15 | disposition home or self-care (01) ==
LOC: ED 17:35
DX: M54.2 Cervicalgia (principal); R51 Headache; I10 Essential (primary) hypertension; K21.9 Gastro-esophageal reflux disease without esophagitis; R10.819 Abdominal tenderness, unspecified site; J44.9 Chronic obstructive pulmonary disease, unspecified; F17.200 Nicotine dependence, unspecified, uncomplicated; E05.90 Thyrotoxicosis, unspecified without thyrotoxic crisis or storm; Z90.49 Acquired absence of other specified parts of digestive tract; V49.59XA Passenger injured in collision with other motor vehicles in traffic accident, initial encounter; Y93.89 Activity, other specified; Y92.89 Other specified places as the place of occurrence of the external cause; Y99.8 Other external cause status; Z79.2 Long term (current) use of antibiotics
CPT/HCPCS: 36415; 70450; 71260; 72125; 74177; 80048; 85027; 99284; Q9967

== ENCOUNTER 2017-03-01 11:00 | Outpatient (CLI) | payer MEDICARE, MEDICAID | END 2017-03-01 11:01 | disposition home or self-care (01) | LOC: SLR 11:00 | PROVIDERS: ATTEND Internal Medicine Pulmonary Disease | DX: G47.30 Sleep apnea, unspecified (principal); I10 Essential (primary) hypertension; E66.9 Obesity, unspecified | CPT/HCPCS: 95810 ==

== ENCOUNTER 2017-03-21 19:46 | Inpatient (IN) | payer MEDICARE ==
[2017-03-21 20:48] LABS: Basophils % (Auto) 0.4 % (0.0-1.8); Eosinophils % (Auto) 2.6 % (0.0-4.3); Hematocrit 34.8 % (30.3-42.9); Hemoglobin 11.4 gm/dl (10.1-14.3); Mean Corpuscular HGB Conc 33 % (30-34); Mean Corpuscular Hemoglobin 28 pg (28-32); Mean Corpuscular Volume 84 fl (79-97); Platelet Count 241 K/mm3 (140-440); Red Blood Count 4.15 M/mm3 (3.65-5.03); Red Cell Distribution Width 14.2 % (13.2-15.2); White Blood Count 6.4 K/mm3 (4.5-11.0)
[2017-03-21 20:58] LABS: Anion Gap 15 mmol/L; BUN/Creatinine Ratio 17; Blood Urea Nitrogen 15 mg/dL (7-17); Carbon Dioxide 25 mmol/L (22-30); Chloride 105.9 mmol/L (98-107); Glucose 87 mg/dL (65-100); Potassium 3.3 mmol/L (3.6-5.0); Sodium 143 mmol/L (137-145)
--- NOTE | 2017-03-21 21:37 | Cat Scan Report ---
FINAL REPORT PROCEDURE: CT LUMBAR SPINE WO CON TECHNIQUE: Computerized axial tomography of the lumbar spine was performed from T12 to the sacrum without contrast material. HISTORY: back pain COMPARISON: No prior studies are available for comparison. FINDINGS: Alignment is satisfactory. No fracture. There is partial sacralization of the L5 vertebra L1-2: Disc space is well preserved.. L2-3: Mild spurring. Facet spurring. No canal stenosis.. L3-4: Disc bulge and spurring with partially calcified right paracentral disc protrusion facet spurring. No canal stenosis. L4-5: Mild spurring. Mild facet spurring. Postoperative change with laminectomy. L5-S1: Disc bulge with spurring. Facet spurring. No canal stenosis. Other: None. IMPRESSION: Degenerative change. Postoperative changes
[2017-03-21 21:50] LABS: Bilirubin,Urine NEG (Negative); Blood,Urine NEG (Negative); Ketones,Urine NEG (Negative); Leukocyte Esterase,Urine TR (Negative); Mucus,Urine FEW /HPF; Nitrite,Urine NEG (Negative); Protein,Urine <15 mg/dL mg/dL (Negative); Urobilinogen,Urine < 2.0 mg/dL (<2.0)
[2017-03-21] MEDS ORDERED: TORADOL IV ONE (22:27)
--- NOTE | 2017-03-21 22:31 | XRay Report ---
FINAL REPORT PROCEDURE: XR CHEST 1V AP TECHNIQUE: Chest radiograph anteroposterior view. CPT 39390 HISTORY: cp COMPARISON: No prior studies are available for comparison. FINDINGS: Heart: Normal. Mediastinum/Vessels: Normal. Lungs/Pleural space: Normal. Bony thorax: No acute osseous abnormality. Degenerative change Life support devices: None. IMPRESSION: No acute cardiopulmonary abnormality.
--- NOTE | 2017-03-21 22:31 | Emergency Department Report ---
ED General Adult HPI - General Chief complaint: Chest Pain Stated complaint: CHEST PAIN Time Seen by Provider: 03/21/17 20:48 Source: patient, EMS Mode of arrival: Stretcher Limitations: No Limitations - History of Present Illness Initial comments: 56-year-old female S medical problem list includes HIV COPD asthma diabetes and GERD and PA hypertension is here for evaluation of chest pain patient is a poor historian she thinks the pain has been off from several days she says it goes across chest and lower back she denied tearing pain she's not sure if it's exertional worsening with activity she is not sure if it's better with rest she was given a nitroglycerin and aspirin en route and became improved. She is also stating that she is having pain into her back and some body aches. -: hour(s), days(s) Location: chest, back Severity scale (0 -10): 5 Quality: burning, aching - Related Data Home Medications Medication Instructions Recorded Confirmed Last Taken Cyanocobalamin [Vitamin B-12] 1,000 mcg PO DAILY 12/17/16 12/28/16 12/28/16 Naltrexone (Nf) [Revia (Nf)] 50 mg PO QAM 12/17/16 12/28/16 12/28/16 Quetiapine Fumarate [QUEtiapine 400 mg PO HS 12/17/16 12/28/16 12/28/16 Fumarate] buPROPion XL [Wellbutrin XL] 150 mg PO QAM 12/17/16 12/28/16 12/28/16 traZODone [Desyrel] 100 mg PO QDAY 12/17/16 12/28/16 12/16/16 Albuterol Sulfate [Ventolin HFA] 1 puff PO PRN PRN 12/28/16 12/28/16 Unknown AtorvaSTATin [Lipitor] 80 mg PO QDAY 12/28/16 12/28/16 Unknown Carvedilol [Coreg] 25 mg PO QDAY 12/28/16 12/28/16 Unknown Duloxetine HCl [DULoxetine] 60 mg PO QDAY 12/28/16 12/28/16 Unknown Escitalopram [Lexapro] 10 mg PO QDAY 12/28/16 12/28/16 Unknown Ferrous Sulfate [Feosol 325 MG tab] 0.5 tab PO QDAY 12/28/16 12/28/16 Unknown Furosemide [Lasix TAB] 40 mg PO QDAY 12/28/16 12/28/16 Unknown HYDROcodone/APAP 7.5-325 [[place] 1 tab PO PRN PRN 12/28/16 12/28/16 Unknown 7.5-325 mg TAB] ISOSORBIDE MONOnitrate [Imdur ER] 30 mg PO PRN 12/28/16 12/28/16 Unknown Labetalol [Normodyne TAB] 200 mg PO QDAY 12/28/16 12/28/16 Unknown Levothyroxine [Synthroid] 100 mcg PO QDAY 12/28/16 12/28/16 Unknown Lisinopril [Zestril] 40 mg PO QDAY 12/28/16 12/28/16 Unknown Mirtazapine [Remeron] 30 mg PO QDAY 12/28/16 12/28/16 Unknown Nitroglycerin [Nitrostat] 0.4 mg PO PRN PRN 12/28/16 12/28/16 Unknown Olanzapine [ZyPREXA] 20 mg PO PRN 12/28/16 12/28/16 Unknown Pantoprazole [Protonix TAB] 40 mg PO QDAY 12/28/16 12/28/16 Unknown amLODIPine [Norvasc] 10 mg PO QDAY 12/28/16 12/28/16 Unknown hydrOXYzine PAMOATE [Vistaril] 25 mg PO QDAY 12/28/16 12/28/16 Unknown Previous Rx's Medication Instructions Recorded Last Taken Type ALBUTEROL Inhaler [ProAir HFA 2 puff IH Q4H PRN #1 inha 12/20/16 12/28/16 Rx Inhaler] Aspirin EC [Aspirin Enteric Coated 81 mg PO QDAY #30 tablet 12/20/16 12/28/16 Rx TAB] Clopidogrel [Plavix] 75 mg PO QDAY #30 tablet 12/20/16 12/28/16 Rx Gabapentin [Neurontin] 600 mg PO BID #60 tablet 12/20/16 12/28/16 Rx Ibuprofen [Motrin 600 MG tab] 600 mg PO Q12H PRN #60 tablet 12/20/16 12/28/16 Rx Levothyroxine [Synthroid] 150 mcg PO QAM #30 tablet 12/20/16 12/28/16 Rx Butalb/Acetamin/Caff 50-325-40 1 tab PO Q6HR PRN #15 tab 12/28/16 Unknown Rx [Fioricet] Cyclobenzaprine HCl [Flexeril 5 MG 5 mg PO TID #20 tab 01/15/17 Unknown Rx TAB] Acetaminophen [Pain Relief] 500 mg PO Q8H PRN #30 tablet 02/15/17 Unknown Rx Cyclobenzaprine [Flexeril] 10 mg PO TID PRN #12 tablet 02/15/17 Unknown Rx Allergies Allergy/AdvReac Type Severity Reaction Status Date / Time No Known Allergies Allergy Verified 12/17/16 11:28 ED Review of Systems ROS: Stated complaint: CHEST PAIN Other details as noted in HPI Comment: All other systems reviewed and negative Constitutional: denies: diaphoresis, fever, malaise, weakness Respiratory: denies: cough, orthopnea, stridor Cardiovascular: chest pain. denies: palpitations, syncope, paroxysmal nocturnal dyspnea Gastrointestinal: denies: abdominal pain, nausea, diarrhea, constipation, hematemesis, hematochezia Neurological: denies: headache, weakness, numbness, paresthesias, confusion, abnormal gait, vertigo ED Past Medical Hx - Past Medical History Previous Medical History?: Yes Hx Hypertension: Yes Hx Heart Attack/AMI: Yes Hx Diabetes: No Hx GERD: Yes Hx Asthma: Yes (chronic bronchitis) Hx COPD: Yes Hx HIV: No Additional medical history: CAD, hyperthyroid, carpal tunnel - Surgical History Past Surgical History?: Yes Hx Coronary Stent: Yes (5) Hx Cholecystectomy: Yes Additional Surgical History: neck fusion, right hand, back surgery, tonsillectomy, tubal ligation - Social History Smoking Status: Never Smoker Substance Use Type: None - Medications Home Medications: Home Medications Medication Instructions Recorded Confirmed Last Taken Type Cyanocobalamin [Vitamin B-12] 1,000 mcg PO DAILY 12/17/16 12/28/16 12/28/16 History Naltrexone (Nf) [Revia (Nf)] 50 mg PO QAM 12/17/16 12/28/16 12/28/16 History Quetiapine Fumarate [QUEtiapine 400 mg PO HS 12/17/16 12/28/16 12/28/16 History Fumarate] buPROPion XL [Wellbutrin XL] 150 mg PO QAM 12/17/16 12/28/16 12/28/16 History traZODone [Desyrel] 100 mg PO QDAY 12/17/16 12/28/16 12/16/16 History ALBUTEROL Inhaler [ProAir HFA 2 puff IH Q4H PRN #1 inha 12/20/16 12/28/16 Rx Inhaler] Aspirin EC [Aspirin Enteric Coated 81 mg PO QDAY #30 tablet 12/20/16 12/28/16 Rx TAB] Clopidogrel [Plavix] 75 mg PO QDAY #30 tablet 12/20/16 12/28/16 12/28/16 Rx Gabapentin [Neurontin] 600 mg PO BID #60 tablet 12/20/16 12/28/16 12/28/16 Rx Ibuprofen [Motrin 600 MG tab] 600 mg PO Q12H PRN #60 tablet 12/20/16 12/28/16 Rx Levothyroxine [Synthroid] 150 mcg PO QAM #30 tablet 12/20/16 12/28/16 12/28/16 Rx Albuterol Sulfate [Ventolin HFA] 1 puff PO PRN PRN 12/28/16 12/28/16 Unknown History AtorvaSTATin [Lipitor] 80 mg PO QDAY 12/28/16 12/28/16 Unknown History Butalb/Acetamin/Caff 50-325-40 1 tab PO Q6HR PRN #15 tab 12/28/16 Unknown Rx [Fioricet] Carvedilol [Coreg] 25 mg PO QDAY 12/28/16 12/28/16 Unknown History Duloxetine HCl [DULoxetine] 60 mg PO QDAY 12/28/16 12/28/16 Unknown History Escitalopram [Lexapro] 10 mg PO QDAY 12/28/16 12/28/16 Unknown History Ferrous Sulfate [Feosol 325 MG tab] 0.5 tab PO QDAY 12/28/16 12/28/16 Unknown History Furosemide [Lasix TAB] 40 mg PO QDAY 12/28/16 12/28/16 Unknown History HYDROcodone/APAP 7.5-325 [[place] 1 tab PO PRN PRN 12/28/16 12/28/16 Unknown History 7.5-325 mg TAB] ISOSORBIDE MONOnitrate [Imdur ER] 30 mg PO PRN 12/28/16 12/28/16 Unknown History Labetalol [Normodyne TAB] 200 mg PO QDAY 12/28/16 12/28/16 Unknown History Levothyroxine [Synthroid] 100 mcg PO QDAY 12/28/16 12/28/16 Unknown History Lisinopril [Zestril] 40 mg PO QDAY 12/28/16 12/28/16 Unknown History Mirtazapine [Remeron] 30 mg PO QDAY 12/28/16 12/28/16 Unknown History Nitroglycerin [Nitrostat] 0.4 mg PO PRN PRN 12/28/16 12/28/16 Unknown History Olanzapine [ZyPREXA] 20 mg PO PRN 12/28/16 12/28/16 Unknown History Pantoprazole [Protonix TAB] 40 mg PO QDAY 12/28/16 12/28/16 Unknown History amLODIPine [Norvasc] 10 mg PO QDAY 12/28/16 12/28/16 Unknown History hydrOXYzine PAMOATE [Vistaril] 25 mg PO QDAY 12/28/16 12/28/16 Unknown History Cyclobenzaprine HCl [Flexeril 5 MG 5 mg PO TID #20 tab 01/15/17 Unknown Rx TAB] Acetaminophen [Pain Relief] 500 mg PO Q8H PRN #30 tablet 02/15/17 Unknown Rx Cyclobenzaprine [Flexeril] 10 mg PO TID PRN #12 tablet 02/15/17 Unknown Rx ED Physical Exam - General Limitations: No Limitations - Head Head exam: Present: atraumatic, normocephalic - Eye Eye exam: Present: normal appearance, PERRL, EOMI - ENT ENT exam: Present: normal exam - Neck Neck exam: Present: normal inspection. Absent: tenderness, meningismus - Respiratory Respiratory exam: Present: rhonchi. Absent: respiratory distress, chest wall tenderness, accessory muscle use - Cardiovascular Cardiovascular Exam: Present: regular rate, normal heart sounds - GI/Abdominal GI/Abdominal exam: Present: soft. Absent: distended, tenderness, guarding, rebound, mass, bruit, pulsatile mass - Extremities Exam Extremities exam: Present: normal inspection. Absent: calf tenderness - Back Exam Back exam: Present: muscle spasm - Neurological Exam Neurological exam: Present: alert, altered, oriented X3, CN II-XII intact. Absent: motor sensory deficit ED Course Vital Signs 03/21/17 03/21/17 03/21/17 19:51 19:54 20:00 Temperature 98.2 F Pulse Rate 63 71 69 Respiratory 15 18 20 Rate Blood Pressure 147/73 147/73 147/73 Blood Pressure [Right] O2 Sat by Pulse 99 100 99 Oximetry 03/21/17 03/21/17 03/21/17 20:16 20:24 20:30 Temperature 98.6 F Pulse Rate 71 67 65 Respiratory 24 19 18 Rate Blood Pressure 137/71 124/69 Blood Pressure 124/69 [Right] O2 Sat by Pulse 99 100 Oximetry 03/21/17 03/21/17 03/21/17 20:59 21:31 22:37 Temperature Pulse Rate 71 Respiratory 24 18 Rate Blood Pressure 147/73 119/52 Blood Pressure [Right] O2 Sat by Pulse 100 100 Oximetry ED Medical Decision Making - Lab Data Result diagrams: 03/21/17 20:21 03/21/17 20:21 - EKG Data -: EKG Interpreted by Me - EKG Data Interpretation: nonspecific ST-T wave samira - Radiology Data Radiology results: image reviewed interpreted by me: process chest no acute, CT lumbar chronic degenerative change. - Medical Decision Making Case was discussed with Dr. Gilmore who will evaluate in ed, pt w/ cp and hx of cad , w. hx copd and hiv, dr gilmore will admit for further eval cp in pt w/ hx of cad for further eval Critical care attestation.: If time is entered above; I have spent that time in minutes in the direct care of this critically ill patient, excluding procedure time. ED Disposition Clinical Impression: Chest pain Disposition: DC-09 OP ADMIT IP TO THIS HOSP Is pt being admited?: Yes Condition: Stable Instructions: Chest Pain (ED) Referrals: PRIMARY CARE, [Primary Care Provider] - 3-5 Days Time of Disposition: 23:26
[2017-03-21] MEDS ORDERED: MOTRIN PO PRN (23:38)
[2017-03-21] MEDS ORDERED: FLEXERIL PO PRN (23:38)
[2017-03-21] MEDS ORDERED: PROAIR IH PRN (23:38)
[2017-03-21] MEDS ORDERED: FIORICET PO PRN (23:38)
[2017-03-21] MEDS ORDERED: NORCO 7.5/325 PO PRN (23:38)
[2017-03-21] MEDS ORDERED: TYLENOL PO PRN ×2 (23:38→23:42)
--- NOTE | 2017-03-21 23:38 | History and Physical Report ---
History of Present Illness Date of examination: 03/21/17 Date of admission: 03/21/2017 Chief complaint: chief complaint: Left-sided chest pain for 1 week History of present illness: History of present illness: 56-year-old -[place] female with past medical history of hypertension gastroesophageal of his disease COPD coronary artery disease and hypothyroidism comes in for left-sided chest pain of one week duration.pain is left-sided and nonradiating. Pain is about 8 scale of 1-10. No diaphoresis no palpitations no shortness of breath. No recent travel.No exacerbating or relieving factors. - Past Medical History Previous Medical History?: Yes Hx Hypertension: Yes Hx Heart Attack/AMI: Yes Hx GERD: Yes Hx Asthma: Yes (chronic bronchitis) Hx COPD: Yes Additional medical history: CAD, hyperthyroid, carpal tunnel - Surgical History Past Surgical History?: Yes Hx Coronary Stent: Yes (5) Hx Cholecystectomy: Yes Additional Surgical History: neck fusion, right hand, back surgery, tonsillectomy, tubal ligation - Social History Smoking Status: Never Smoker Substance Use Type: None Family history: hypertension - Medications Home Medications: Home Medications Medication Instructions Recorded Confirmed Last Taken Type Cyanocobalamin [Vitamin B-12] 1,000 mcg PO DAILY 12/17/16 12/28/16 12/28/16 History Naltrexone (Nf) [Revia (Nf)] 50 mg PO QAM 12/17/16 12/28/16 12/28/16 History Quetiapine Fumarate [QUEtiapine 400 mg PO HS 12/17/16 12/28/16 12/28/16 History Fumarate] buPROPion XL [Wellbutrin XL] 150 mg PO QAM 12/17/16 12/28/16 12/28/16 History traZODone [Desyrel] 100 mg PO QDAY 12/17/16 12/28/16 12/16/16 History ALBUTEROL Inhaler [ProAir HFA 2 puff IH Q4H PRN #1 inha 12/20/16 12/28/16 Rx Inhaler] Aspirin EC [Aspirin Enteric Coated 81 mg PO QDAY #30 tablet 12/20/16 12/28/16 Rx TAB] Clopidogrel [Plavix] 75 mg PO QDAY #30 tablet 12/20/16 12/28/16 12/28/16 Rx Gabapentin [Neurontin] 600 mg PO BID #60 tablet 12/20/16 12/28/16 12/28/16 Rx Ibuprofen [Motrin 600 MG tab] 600 mg PO Q12H PRN #60 tablet 12/20/16 12/28/16 Rx Levothyroxine [Synthroid] 150 mcg PO QAM #30 tablet 12/20/16 12/28/16 12/28/16 Rx Albuterol Sulfate [Ventolin HFA] 1 puff PO PRN PRN 12/28/16 12/28/16 Unknown History AtorvaSTATin [Lipitor] 80 mg PO QDAY 12/28/16 12/28/16 Unknown History Butalb/Acetamin/Caff 50-325-40 1 tab PO Q6HR PRN #15 tab 12/28/16 Unknown Rx [Fioricet] Carvedilol [Coreg] 25 mg PO QDAY 12/28/16 12/28/16 Unknown History Duloxetine HCl [DULoxetine] 60 mg PO QDAY 12/28/16 12/28/16 Unknown History Escitalopram [Lexapro] 10 mg PO QDAY 12/28/16 12/28/16 Unknown History Ferrous Sulfate [Feosol 325 MG tab] 0.5 tab PO QDAY 12/28/16 12/28/16 Unknown History Furosemide [Lasix TAB] 40 mg PO QDAY 12/28/16 12/28/16 Unknown History HYDROcodone/APAP 7.5-325 [[place] 1 tab PO PRN PRN 12/28/16 12/28/16 Unknown History 7.5-325 mg TAB] ISOSORBIDE MONOnitrate [Imdur ER] 30 mg PO PRN 12/28/16 12/28/16 Unknown History Labetalol [Normodyne TAB] 200 mg PO QDAY 12/28/16 12/28/16 Unknown History Levothyroxine [Synthroid] 100 mcg PO QDAY 12/28/16 12/28/16 Unknown History Lisinopril [Zestril] 40 mg PO QDAY 12/28/16 12/28/16 Unknown History Mirtazapine [Remeron] 30 mg PO QDAY 12/28/16 12/28/16 Unknown History Nitroglycerin [Nitrostat] 0.4 mg PO PRN PRN 12/28/16 12/28/16 Unknown History Olanzapine [ZyPREXA] 20 mg PO PRN 12/28/16 12/28/16 Unknown History Pantoprazole [Protonix TAB] 40 mg PO QDAY 12/28/16 12/28/16 Unknown History amLODIPine [Norvasc] 10 mg PO QDAY 12/28/16 12/28/16 Unknown History hydrOXYzine PAMOATE [Vistaril] 25 mg PO QDAY 12/28/16 12/28/16 Unknown History Cyclobenzaprine HCl [Flexeril 5 MG 5 mg PO TID #20 tab 01/15/17 Unknown Rx TAB] Acetaminophen [Pain Relief] 500 mg PO Q8H PRN #30 tablet 02/15/17 Unknown Rx Cyclobenzaprine [Flexeril] 10 mg PO TID PRN #12 tablet 02/15/17 Unknown Rx Review of Systems ROS: Stated complaint: CHEST PAIN Other details as noted in HPI Comment: All other systems reviewed and negative Constitutional: denies: diaphoresis, fever, malaise, weakness Respiratory: denies: cough, orthopnea, stridor Cardiovascular: chest pain. denies: palpitations, syncope, paroxysmal nocturnal dyspnea Gastrointestinal: denies: abdominal pain, nausea, diarrhea, constipation, hematemesis, hematochezia Neurological: denies: headache, weakness, numbness, paresthesias, confusion, abnormal gait, vertigo 14 point review of systems done. Otherwise negative. \ Medications and Allergies Allergies Allergy/AdvReac Type Severity Reaction Status Date / Time No Known Allergies Allergy Verified 12/17/16 11:28 Home Medications Medication Instructions Recorded Confirmed Last Taken Type Cyanocobalamin [Vitamin B-12] 1,000 mcg PO DAILY 12/17/16 12/28/16 12/28/16 History Naltrexone (Nf) [Revia (Nf)] 50 mg PO QAM 12/17/16 12/28/16 12/28/16 History Quetiapine Fumarate [QUEtiapine 400 mg PO HS 12/17/16 12/28/16 12/28/16 History Fumarate] buPROPion XL [Wellbutrin XL] 150 mg PO QAM 12/17/16 12/28/16 12/28/16 History traZODone [Desyrel] 100 mg PO QDAY 09/12/28/16 12/16/16 History ALBUTEROL Inhaler [ProAir HFA 2 puff IH Q4H PRN #1 inha 12/20/16 12/28/16 Rx Inhaler] Aspirin EC [Aspirin Enteric Coated 81 mg PO QDAY #30 tablet 12/20/16 12/28/16 Rx TAB] Clopidogrel [Plavix] 75 mg PO QDAY #30 tablet 12/20/16 12/28/16 12/28/16 Rx Gabapentin [Neurontin] 600 mg PO BID #60 tablet 12/20/16 12/28/16 12/28/16 Rx Ibuprofen [Motrin 600 MG tab] 600 mg PO Q12H PRN #60 tablet 12/20/16 12/28/16 Rx Levothyroxine [Synthroid] 150 mcg PO QAM #30 tablet 12/20/16 12/28/16 12/28/16 Rx Albuterol Sulfate [Ventolin HFA] 1 puff PO PRN PRN 12/28/16 12/28/16 Unknown History AtorvaSTATin [Lipitor] 80 mg PO QDAY 12/28/16 12/28/16 Unknown History Butalb/Acetamin/Caff 50-325-40 1 tab PO Q6HR PRN #15 tab 12/28/16 Unknown Rx [Fioricet] Carvedilol [Coreg] 25 mg PO QDAY 12/28/16 12/28/16 Unknown History Duloxetine HCl [DULoxetine] 60 mg PO QDAY 12/28/16 12/28/16 Unknown History Escitalopram [Lexapro] 10 mg PO QDAY 12/28/16 12/28/16 Unknown History Ferrous Sulfate [Feosol 325 MG tab] 0.5 tab PO QDAY 12/28/16 12/28/16 Unknown History Furosemide [Lasix TAB] 40 mg PO QDAY 12/28/16 12/28/16 Unknown History HYDROcodone/APAP 7.5-325 [[place] 1 tab PO PRN PRN 12/28/16 12/28/16 Unknown History 7.5-325 mg TAB] ISOSORBIDE MONOnitrate [Imdur ER] 30 mg PO PRN 12/28/16 12/28/16 Unknown History Labetalol [Normodyne TAB] 200 mg PO QDAY 12/28/16 12/28/16 Unknown History Levothyroxine [Synthroid] 100 mcg PO QDAY 12/28/16 12/28/16 Unknown History Lisinopril [Zestril] 40 mg PO QDAY 12/28/16 12/28/16 Unknown History Mirtazapine [Remeron] 30 mg PO QDAY 12/28/16 12/28/16 Unknown History Nitroglycerin [Nitrostat] 0.4 mg PO PRN PRN 12/28/16 12/28/16 Unknown History Olanzapine [ZyPREXA] 20 mg PO PRN 12/28/16 12/28/16 Unknown History Pantoprazole [Protonix TAB] 40 mg PO QDAY 12/28/16 12/28/16 Unknown History amLODIPine [Norvasc] 10 mg PO QDAY 12/28/16 12/28/16 Unknown History hydrOXYzine PAMOATE [Vistaril] 25 mg PO QDAY 12/28/16 12/28/16 Unknown History Cyclobenzaprine HCl [Flexeril 5 MG 5 mg PO TID #20 tab 01/15/17 Unknown Rx TAB] Acetaminophen [Pain Relief] 500 mg PO Q8H PRN #30 tablet 02/15/17 Unknown Rx Cyclobenzaprine [Flexeril] 10 mg PO TID PRN #12 tablet 02/15/17 Unknown Rx Exam - Constitutional Vitals: Temp Pulse Resp BP Pulse Ox 98.6 F 71 18 119/52 100 03/21/17 20:24 03/21/17 20:59 03/21/17 22:37 03/21/17 21:31 03/21/17 21:31 General appearance: Present: no acute distress, well-nourished - EENT Eyes: Present: PERRL ENT: hearing intact, clear oral mucosa - Neck Neck: Present: supple, normal ROM - Respiratory Respiratory effort: normal Respiratory: bilateral: CTA - Cardiovascular Heart rate: 78 Rhythm: regular Heart Sounds: Present: S1 & S2. Absent: rub, click - Extremities Extremities: no ischemia, pulses intact, pulses symmetrical, No edema Peripheral Pulses: within normal limits - Abdominal General gastrointestinal: Present: soft, non-tender, non-distended, normal bowel sounds Female genitourinary: Present: normal - Rectal Rectal Exam: deferred - Integumentary Integumentary: Present: clear, warm, dry - Musculoskeletal Musculoskeletal: gait normal, strength equal bilaterally - Psychiatric Psychiatric: appropriate mood/affect, intact judgment & insight - Neurologic Neurologic: CNII-XII intact, moves all extremities - Allied Health Allied health notes reviewed: nursing, case management Results - Labs CBC & Chem 7: 03/22/17 03:50 03/22/17 03:50 Labs: Laboratory Last Values WBC 6.4 K/mm3 (4.5-11.0) 03/21/17 20:21 RBC 4.15 M/mm3 (3.65-5.03) 03/21/17 20:21 Hgb 11.4 gm/dl (10.1-14.3) 03/21/17 20:21 Hct 34.8 % (30.3-42.9) 03/21/17 20:21 MCV 84 fl (79-97) 03/21/17 20:21 MCH 28 pg (28-32) 03/21/17 20:21 MCHC 33 % (30-34) 03/21/17 20:21 RDW 14.2 % (13.2-15.2) 03/21/17 20:21 Plt Count 241 K/mm3 (140-440) 03/21/17 20:21 Lymph % (Auto) 44.3 % (13.4-35.0) H 03/21/17 20:21 [place] % (Auto) 13.0 % (0.0-7.3) H 03/21/17 20:21 Eos % (Auto) 2.6 % (0.0-4.3) 03/21/17 20:21 Baso % (Auto) 0.4 % (0.0-1.8) 03/21/17 20:21 Lymph # 2.8 K/mm3 (1.2-5.4) 03/21/17 20:21 [place] # 0.8 K/mm3 (0.0-0.8) 03/21/17 20:21 Eos # 0.2 K/mm3 (0.0-0.4) 03/21/17 20:21 Baso # 0.0 K/mm3 (0.0-0.1) 03/21/17 20:21 Seg Neutrophils % 39.7 % (40.0-70.0) L 03/21/17 20:21 Seg Neutrophils # 2.5 K/mm3 (1.8-7.7) 03/21/17 20:21 Sodium 143 mmol/L (137-145) 03/21/17 20:21 Potassium 3.3 mmol/L (3.6-5.0) L 03/21/17 20:21 Chloride 105.9 mmol/L (98-107) 03/21/17 20:21 Carbon Dioxide 25 mmol/L (22-30) 03/21/17 20:21 Anion Gap 15 mmol/L 03/21/17 20:21 BUN 15 mg/dL (7-17) 03/21/17 20:21 Creatinine 0.9 mg/dL (0.7-1.2) 03/21/17 20:21 Estimated GFR > 60 ml/min 03/21/17 20:21 BUN/Creatinine Ratio 17 % 03/21/17 20:21 Glucose 87 mg/dL (65-100) 03/21/17 20:21 Calcium 9.0 mg/dL (8.4-10.2) 03/21/17 20:21 Troponin T < 0.010 ng/mL (0.00-0.029) 03/21/17 22:54 Urine Color Yellow (Yellow) 03/21/17 21:36 Urine Turbidity Clear (Clear) 03/21/17 21:36 Urine pH 5.0 (5.0-7.0) 03/21/17 21:36 Ur Specific [place] 1.017 (1.003-1.030) 03/21/17 21:36 Urine Protein <15 mg/dl mg/dL (Negative) 03/21/17 21:36 Urine Glucose (UA) Neg mg/dL (Negative) 03/21/17 21:36 Urine Ketones Neg mg/dL (Negative) 03/21/17 21:36 Urine Blood Neg (Negative) 03/21/17 21:36 Urine Nitrite Neg (Negative) 03/21/17 21:36 Urine Bilirubin Neg (Negative) 03/21/17 21:36 Urine Urobilinogen < 2.0 mg/dL (<2.0) 03/21/17 21:36 Ur Leukocyte Esterase Tr (Negative) 03/21/17 21:36 Urine WBC (Auto) 2.0 /HPF (0.0-6.0) 03/21/17 21:36 Urine RBC (Auto) 2.0 /HPF (0.0-6.0) 03/21/17 21:36 U Epithel Cells (Auto) 4.0 /HPF (0-13.0) 03/21/17 21:36 Urine Mucus Few /HPF 03/21/17 21:36 - Imaging and Cardiology EKG: report reviewed (normal sinus rhythm heart rate of 71 per minute no acute ST-T wave changes) Chest x-ray: report reviewed (no acute findings) Imaging and Cardiology: CT lumbar spine: Degenerative changes. Assessment and Plan Advance Directives: Yes (full code) VTE prophylaxis?: Chemical Plan of care discussed with patient/family: Yes - Patient Problems (1) Chest pain Current Visit: Yes Status: Acute Qualifiers: Chest pain type: unspecified Qualified Code(s): R07.9 - Chest pain, unspecified Plan to address problem: chest pain workup initiated. Patient did get serial cardiac enzymes and Lexiscan in the morning. Reflux esophagitis as the differential diagnosis. No chest wall tenderness. Costochondritis ruled out (2) Coronary artery disease Current Visit: Yes Status: Chronic Qualifiers: Coronary Disease-Associated Artery/Lesion type: circle artery [place] vs. transplanted heart: circle heart Associated angina: angina presence unspecified Qualified Code(s): I25.10 - Atherosclerotic heart disease of circle coronary artery without angina pectoris Plan to address problem: continue Plavix (3) Hypertension Current Visit: Yes Status: Chronic Qualifiers: Hypertension type: essential hypertension Qualified Code(s): I10 - Essential (primary) hypertension Plan to address problem: continue lisinopril and Coreg and labetalol. (4) Hypothyroidism (acquired) Current Visit: Yes Status: Chronic Plan to address problem: continue levothyroxine 100 micrograms once a day (5) COPD (chronic obstructive pulmonary disease) Current Visit: Yes Status: Chronic Qualifiers: COPD type: unspecified COPD Qualified Code(s): J44.9 - Chronic obstructive pulmonary disease, unspecified Plan to address problem: continue bronchodilators (6) Hyperlipidemia Current Visit: Yes Status: Chronic Qualifiers: Hyperlipidemia type: mixed hyperlipidemia Qualified Code(s): E78.2 - Mixed hyperlipidemia Plan to address problem: continue statins (7) Peripheral neuropathy Current Visit: Yes Status: Chronic Qualifiers: Peripheral neuropathy type: polyneuropathy, unspecified Qualified Code(s): G62.9 - Polyneuropathy, unspecified Plan to address problem: continue gabapentin 600 mg twice a day (8) Bipolar disorder Current Visit: Yes Status: Chronic Qualifiers: Active/Remission status: in remission of unspecified degree Qualified Code( s): F31.70 - Bipolar disorder, currently in remission, most recent episode unspecified Plan to address problem: continue Seroquel and Wellbutrin and Cymbalta. (9) DVT prophylaxis Current Visit: No Status: Acute Plan to address problem: on Lovenox
[2017-03-21] MEDS ORDERED: PROVENTIL IH PRN ×2 (23:42→23:48)
[2017-03-21] MEDS ORDERED: MILK OF MAGNESIA PO PRN (23:42)
[2017-03-21] MEDS ORDERED: DULCOLAX PR PRN (23:42)
[2017-03-21] MEDS ORDERED: ZOFRAN IV PRN (23:42)
[2017-03-21] MEDS ORDERED: PERCOCET 5/325 PO PRN (23:42)
[2017-03-21] MEDS ORDERED: IMDUR PO SCH (23:45)
[2017-03-22] MEDS: MORPHINE IV PRN ×3 (00:08→11:04)
[2017-03-22 00:11] LABS: Creatine Kinase MB 7.3 ng/mL (0.0-4.0)
[2017-03-22] MEDS: NEURONTIN PO SCH ×3 (01:43→22:55)
[2017-03-22 04:21] LABS: Basophils % (Auto) 0.6 % (0.0-1.8); Eosinophils % (Auto) 2.9 % (0.0-4.3); Hemoglobin 11.6 gm/dl (10.1-14.3); White Blood Count 5.6 K/mm3 (4.5-11.0)
[2017-03-22 04:23] LABS: Alanine Aminotransferase 12 units/L (7-56); Albumin 3.3 g/dL (3.9-5); Albumin/Globulin Ratio 0.8 %; Alkaline Phosphatase 77 units/L (35-129); Anion Gap 18 mmol/L; BUN/Creatinine Ratio 19; Blood Urea Nitrogen 17 mg/dL (7-17); Calcium 8.9 mg/dL (8.4-10.2); Carbon Dioxide 24 mmol/L (22-30); Chloride 104.8 mmol/L (98-107); Glucose 100 mg/dL (65-100); Potassium 3.3 mmol/L (3.6-5.0); Sodium 143 mmol/L (137-145); Total Protein 7.6 g/dL (6.3-8.2)
[2017-03-22 04:27] LABS: Hematocrit 36.1 % (30.3-42.9); Mean Corpuscular HGB Conc 32 % (30-34); Mean Corpuscular Hemoglobin 27 pg (28-32); Mean Corpuscular Volume 84 fl (79-97); Platelet Count 240 K/mm3 (140-440); Red Blood Count 4.29 M/mm3 (3.65-5.03); Red Cell Distribution Width 14.4 % (13.2-15.2)
[2017-03-22 06:24] LABS: Creatine Kinase MB 6.1 ng/mL (0.0-4.0)
[2017-03-22 06:26] LABS: Creatine Kinase 272 units/L (30-135)
[2017-03-22] MEDS ORDERED: ZESTRIL PO SCH (10:00)
[2017-03-22] MEDS ORDERED: NORVASC PO SCH (10:00)
[2017-03-22] MEDS ORDERED: NALTREXONE 50 MG PO SCH (10:00)
[2017-03-22] MEDS ORDERED: PEPCID PO SCH (10:00)
[2017-03-22] MEDS ORDERED: NORMODYNE PO SCH (10:00)
[2017-03-22] MEDS: VISTARIL PO SCH (11:04)
[2017-03-22] MEDS: FEOSOL PO SCH (11:05)
[2017-03-22] MEDS: VITAMIN B-12 PO SCH (11:05)
[2017-03-22] MEDS: LOVENOX SUB-Q SCH (11:05)
[2017-03-22] MEDS: PLAVIX PO SCH (11:05)
[2017-03-22] MEDS: HALFPRIN EC PO SCH (11:05)
[2017-03-22] MEDS: SYNTHROID PO SCH (11:06)
[2017-03-22] MEDS: WELLBUTRIN XL PO SCH (11:06)
[2017-03-22] MEDS: LASIX PO SCH (11:07)
[2017-03-22] MEDS: PROTONIX PO SCH (11:07)
[2017-03-22] MEDS: REMERON PO SCH (11:07)
[2017-03-22] MEDS: COREG PO SCH (11:08)
[2017-03-22] MEDS: DESYREL PO SCH (11:08)
[2017-03-22] MEDS: CYMBALTA PO SCH (11:09)
[2017-03-22] MEDS: LEXAPRO PO SCH (11:09)
[2017-03-22] MEDS: FLEXERIL PO SCH ×2 (11:17→16:28)
[2017-03-22 12:44] LABS: Creatine Kinase MB 5.7 ng/mL (0.0-4.0)
[2017-03-22 12:46] LABS: Creatine Kinase 246 units/L (30-135)
--- NOTE | 2017-03-22 14:55 | Progress Note ---
<MARIELOS REID - Last Filed: 03/22/17 14:49> Assessment and Plan Assessment and plan: 56-year-old -[place] female with past medical history of hypertension gastroesophageal of his disease COPD coronary artery disease and hypothyroidism comes in for left-sided chest pain of one week duration.pain is left-sided and nonradiating. Pain is about 8 scale of 1-10. No diaphoresis no palpitations no shortness of breath. No recent travel.No exacerbating or relieving factors (1) Chest pain Chest pain workup initiated. Patient did get serial cardiac enzymes which were WNL Reflux esophagitis as the differential diagnosis. No chest wall tenderness. Costochondritis ruled out Cardiology consulted, stress test cancelled due to a recent MPI and subsequent Cath in 12/19. (2) Coronary artery disease Continue Plavix (3) Hypertension continue lisinopril and Coreg and labetalol. (4) Hypothyroidism (acquired) continue levothyroxine 100 micrograms once a day (5) COPD (chronic obstructive pulmonary disease) continue bronchodilators (6) Hyperlipidemia continue statins (7) Peripheral neuropathy continue gabapentin 600 mg twice a day (8) Bipolar disorder continue Seroquel and Wellbutrin and Cymbalta. (9) DVT prophylaxis on Lovenox History Interval history: Patient was seen and examined. She still complains of an intermittent chest pain, now 6-7 out of 10 relieved with medication. She denies shortness of breath, nausea, vomiting. Hospitalist Physical - Constitutional Vitals: Temp Pulse Resp BP Pulse Ox 98.4 F 59 L 20 128/76 95 03/22/17 04:46 03/22/17 11:08 03/22/17 04:46 03/22/17 11:08 03/22/17 04:46 General appearance: Present: no acute distress, well-nourished, obese - EENT Eyes: Present: PERRL, EOM intact ENT: hearing intact, clear oral mucosa, dentition normal - Neck Neck: Present: supple, normal ROM - Respiratory Respiratory effort: normal Respiratory: bilateral: CTA - Cardiovascular Rhythm: regular Heart Sounds: Present: S1 & S2 - Extremities Extremities: no ischemia, No edema Peripheral Pulses: within normal limits - Abdominal General gastrointestinal: soft, non-tender - Integumentary Integumentary: Present: clear, warm, dry - Psychiatric Psychiatric: appropriate mood/affect, intact judgment & insight, cooperative - Neurologic Neurologic: CNII-XII intact, moves all extremities - Allied Health Allied health notes reviewed: nursing Results - Labs CBC & Chem 7: 03/22/17 03:50 03/22/17 03:50 Labs: Laboratory Last Values WBC 5.6 K/mm3 (4.5-11.0) 03/22/17 03:50 RBC 4.29 M/mm3 (3.65-5.03) 03/22/17 03:50 Hgb 11.6 gm/dl (10.1-14.3) 03/22/17 03:50 Hct 36.1 % (30.3-42.9) 03/22/17 03:50 MCV 84 fl (79-97) 03/22/17 03:50 MCH 27 pg (28-32) L 03/22/17 03:50 MCHC 32 % (30-34) 03/22/17 03:50 RDW 14.4 % (13.2-15.2) 03/22/17 03:50 Plt Count 240 K/mm3 (140-440) 03/22/17 03:50 Lymph % (Auto) 42.5 % (13.4-35.0) H 03/22/17 03:50 [place] % (Auto) 12.2 % (0.0-7.3) H 03/22/17 03:50 Eos % (Auto) 2.9 % (0.0-4.3) 03/22/17 03:50 Baso % (Auto) 0.6 % (0.0-1.8) 03/22/17 03:50 Lymph # 2.4 K/mm3 (1.2-5.4) 03/22/17 03:50 [place] # 0.7 K/mm3 (0.0-0.8) 03/22/17 03:50 Eos # 0.2 K/mm3 (0.0-0.4) 03/22/17 03:50 Baso # 0.0 K/mm3 (0.0-0.1) 03/22/17 03:50 Seg Neutrophils % 41.8 % (40.0-70.0) 03/22/17 03:50 Seg Neutrophils # 2.3 K/mm3 (1.8-7.7) 03/22/17 03:50 Sodium 143 mmol/L (137-145) 03/22/17 03:50 Potassium 3.3 mmol/L (3.6-5.0) L 03/22/17 03:50 Chloride 104.8 mmol/L (98-107) 03/22/17 03:50 Carbon Dioxide 24 mmol/L (22-30) 03/22/17 03:50 Anion Gap 18 mmol/L 03/22/17 03:50 BUN 17 mg/dL (7-17) 03/22/17 03:50 Creatinine 0.9 mg/dL (0.7-1.2) 03/22/17 03:50 Estimated GFR > 60 ml/min 03/22/17 03:50 BUN/Creatinine Ratio 19 % 03/22/17 03:50 Glucose 100 mg/dL (65-100) 03/22/17 03:50 Hemoglobin A1c 5.8 % (4-6) 03/21/17 23:00 Calcium 8.9 mg/dL (8.4-10.2) 03/22/17 03:50 Total Bilirubin 0.20 mg/dL (0.1-1.2) 03/22/17 03:50 AST 19 units/L (5-40) 03/22/17 03:50 ALT 12 units/L (7-56) 03/22/17 03:50 Alkaline Phosphatase 77 units/L (35-129) 03/22/17 03:50 Total Creatine Kinase 246 units/L (30-135) H 03/22/17 11:57 CK-MB (CK-2) 5.7 ng/mL (0.0-4.0) H 03/22/17 11:57 CK-MB (CK-2) Rel Index 2.3 (0-4) 03/22/17 11:57 Troponin T < 0.010 ng/mL (0.00-0.029) 03/22/17 11:57 Total Protein 7.6 g/dL (6.3-8.2) 03/22/17 03:50 Albumin 3.3 g/dL (3.9-5) L 03/22/17 03:50 Albumin/Globulin Ratio 0.8 % 03/22/17 03:50 Urine Color Yellow (Yellow) 03/21/17 21:36 Urine Turbidity Clear (Clear) 03/21/17 21:36 Urine pH 5.0 (5.0-7.0) 03/21/17 21:36 Ur Specific [place] 1.017 (1.003-1.030) 03/21/17 21:36 Urine Protein <15 mg/dl mg/dL (Negative) 03/21/17 21:36 Urine Glucose (UA) Neg mg/dL (Negative) 03/21/17 21:36 Urine Ketones Neg mg/dL (Negative) 03/21/17 21:36 Urine Blood Neg (Negative) 03/21/17 21:36 Urine Nitrite Neg (Negative) 03/21/17 21:36 Urine Bilirubin Neg (Negative) 03/21/17 21:36 Urine Urobilinogen < 2.0 mg/dL (<2.0) 03/21/17 21:36 Ur Leukocyte Esterase Tr (Negative) 03/21/17 21:36 Urine WBC (Auto) 2.0 /HPF (0.0-6.0) 03/21/17 21:36 Urine RBC (Auto) 2.0 /HPF (0.0-6.0) 03/21/17 21:36 U Epithel Cells (Auto) 4.0 /HPF (0-13.0) 03/21/17 21:36 Urine Mucus Few /HPF 03/21/17 21:36 - Imaging and Cardiology Chest x-ray: report reviewed Imaging and Cardiology: Lumbar spine CT reviewed <ISABEL GLASS - Last Filed: 03/22/17 23:22> Assessment and Plan Assessment and plan: I saw and evaluated the patient. I agree with the findings and the plan of care as documented in the Nurse Practitioner's~note, with the following corrections and additions. Patient with CAD presents with chest pain. Will consult cardiology. Hospitalist Physical - Constitutional Vitals: Temp Pulse Resp BP Pulse Ox 98.9 F 66 22 95/55 91 03/22/17 20:21 03/22/17 22:56 03/22/17 20:21 03/22/17 22:56 03/22/17 20:21 Results - Labs CBC & Chem 7: 03/22/17 03:50 03/22/17 03:50 Labs: Laboratory Last Values WBC 5.6 K/mm3 (4.5-11.0) 03/22/17 03:50 RBC 4.29 M/mm3 (3.65-5.03) 03/22/17 03:50 Hgb 11.6 gm/dl (10.1-14.3) 03/22/17 03:50 Hct 36.1 % (30.3-42.9) 03/22/17 03:50 MCV 84 fl (79-97) 03/22/17 03:50 MCH 27 pg (28-32) L 03/22/17 03:50 MCHC 32 % (30-34) 03/22/17 03:50 RDW 14.4 % (13.2-15.2) 03/22/17 03:50 Plt Count 240 K/mm3 (140-440) 03/22/17 03:50 Lymph % (Auto) 42.5 % (13.4-35.0) H 03/22/17 03:50 [place] % (Auto) 12.2 % (0.0-7.3) H 03/22/17 03:50 Eos % (Auto) 2.9 % (0.0-4.3) 03/22/17 03:50 Baso % (Auto) 0.6 % (0.0-1.8) 03/22/17 03:50 Lymph # 2.4 K/mm3 (1.2-5.4) 03/22/17 03:50 [place] # 0.7 K/mm3 (0.0-0.8) 03/22/17 03:50 Eos # 0.2 K/mm3 (0.0-0.4) 03/22/17 03:50 Baso # 0.0 K/mm3 (0.0-0.1) 03/22/17 03:50 Seg Neutrophils % 41.8 % (40.0-70.0) 03/22/17 03:50 Seg Neutrophils # 2.3 K/mm3 (1.8-7.7) 03/22/17 03:50 Sodium 143 mmol/L (137-145) 03/22/17 03:50 Potassium 3.3 mmol/L (3.6-5.0) L 03/22/17 03:50 Chloride 104.8 mmol/L (98-107) 03/22/17 03:50 Carbon Dioxide 24 mmol/L (22-30) 03/22/17 03:50 Anion Gap 18 mmol/L 03/22/17 03:50 BUN 17 mg/dL (7-17) 03/22/17 03:50 Creatinine 0.9 mg/dL (0.7-1.2) 03/22/17 03:50 Estimated GFR > 60 ml/min 03/22/17 03:50 BUN/Creatinine Ratio 19 % 03/22/17 03:50 Glucose 100 mg/dL (65-100) 03/22/17 03:50 Hemoglobin A1c 5.8 % (4-6) 03/21/17 23:00 Calcium 8.9 mg/dL (8.4-10.2) 03/22/17 03:50 Total Bilirubin 0.20 mg/dL (0.1-1.2) 03/22/17 03:50 AST 19 units/L (5-40) 03/22/17 03:50 ALT 12 units/L (7-56) 03/22/17 03:50 Alkaline Phosphatase 77 units/L (35-129) 03/22/17 03:50 Total Creatine Kinase 246 units/L (30-135) H 03/22/17 11:57 CK-MB (CK-2) 5.7 ng/mL (0.0-4.0) H 03/22/17 11:57 CK-MB (CK-2) Rel Index 2.3 (0-4) 03/22/17 11:57 Troponin T < 0.010 ng/mL (0.00-0.029) 03/22/17 11:57 Total Protein 7.6 g/dL (6.3-8.2) 03/22/17 03:50 Albumin 3.3 g/dL (3.9-5) L 03/22/17 03:50 Albumin/Globulin Ratio 0.8 % 03/22/17 03:50 Urine Color Yellow (Yellow) 03/21/17 21:36 Urine Turbidity Clear (Clear) 03/21/17 21:36 Urine pH 5.0 (5.0-7.0) 03/21/17 21:36 Ur Specific [place] 1.017 (1.003-1.030) 03/21/17 21:36 Urine Protein <15 mg/dl mg/dL (Negative) 03/21/17 21:36 Urine Glucose (UA) Neg mg/dL (Negative) 03/21/17 21:36 Urine Ketones Neg mg/dL (Negative) 03/21/17 21:36 Urine Blood Neg (Negative) 03/21/17 21:36 Urine Nitrite Neg (Negative) 03/21/17 21:36 Urine Bilirubin Neg (Negative) 03/21/17 21:36 Urine Urobilinogen < 2.0 mg/dL (<2.0) 03/21/17 21:36 Ur Leukocyte Esterase Tr (Negative) 03/21/17 21:36 Urine WBC (Auto) 2.0 /HPF (0.0-6.0) 03/21/17 21:36 Urine RBC (Auto) 2.0 /HPF (0.0-6.0) 03/21/17 21:36 U Epithel Cells (Auto) 4.0 /HPF (0-13.0) 03/21/17 21:36 Urine Mucus Few /HPF 03/21/17 21:36
[2017-03-22] MEDS: K-DUR PO SCH ×2 (16:27→20:31)
[2017-03-22] MEDS: NITRO-BID 2% TP SCH ×2 (16:27→22:56)
[2017-03-23] MEDS: FLEXERIL PO SCH ×2 (00:33→08:47)
[2017-03-23] MEDS: NITRO-BID 2% TP SCH ×2 (04:10→09:03)
[2017-03-23] MEDS: SYNTHROID PO SCH (06:39)
[2017-03-23] MEDS: FEOSOL PO SCH (09:01)
[2017-03-23] MEDS: NEURONTIN PO SCH (09:01)
[2017-03-23] MEDS: LEXAPRO PO SCH (09:01)
[2017-03-23] MEDS: PLAVIX PO SCH (09:01)
[2017-03-23] MEDS: CYMBALTA PO SCH (09:01)
[2017-03-23] MEDS: VITAMIN B-12 PO SCH (09:01)
[2017-03-23] MEDS: WELLBUTRIN XL PO SCH (09:01)
[2017-03-23] MEDS: REMERON PO SCH (09:01)
[2017-03-23] MEDS: DESYREL PO SCH (09:01)
[2017-03-23] MEDS: HALFPRIN EC PO SCH (09:02)
[2017-03-23] MEDS: LASIX PO SCH (09:03)
[2017-03-23] MEDS: LOVENOX SUB-Q SCH (09:03)
[2017-03-23] MEDS: COREG PO SCH (09:03)
[2017-03-23] MEDS: PROTONIX PO SCH (09:03)
[2017-03-23] MEDS: VISTARIL PO SCH (09:04)
[2017-03-23 10:12] VITALS: BP 90/46
--- NOTE | 2017-03-23 11:28 | Consultation ---
History of Present Illness Consult date: 03/23/17 Consult reason: chest pain History of present illness: This is a 56yr old woman with a history of coronary artery disease. 3 months ago she had a cardiac cath that showed patent 2 vessel stents-Diag and mid RCA. Medical therapy recommended for small vessel ostial disease of the Diag sub- branch. Ejection fraction 55-60%. She is now admitted with chest pain. Patient reports intermittent chest pain and lower back pain since Tuesday. There was no shortness of breath or palpitations. ECG is a sinus rhythm, no acute ischemic changes. Today, patient looks and feels better. She reports since her initial treatment in the ER her chest pain has subsided. Medications and Allergies Allergies Allergy/AdvReac Type Severity Reaction Status Date / Time No Known Allergies Allergy Verified 12/17/16 11:28 Home Medications Medication Instructions Recorded Confirmed Last Taken Type Cyanocobalamin [Vitamin B-12] 1,000 mcg PO DAILY 12/17/16 03/22/17 1 Day Ago History ~03/21/17 Naltrexone (Nf) [Revia (Nf)] 50 mg PO QAM 12/17/16 03/22/17 1 Day Ago History ~03/21/17 Quetiapine Fumarate [QUEtiapine 400 mg PO HS 12/17/16 03/22/17 1 Day Ago History Fumarate] ~03/21/17 buPROPion XL [Wellbutrin XL] 150 mg PO QAM 12/17/16 03/22/17 1 Day Ago History ~03/21/17 traZODone [Desyrel] 100 mg PO QDAY 12/17/16 03/22/17 1 Day Ago History ~03/21/17 Aspirin EC [Aspirin Enteric Coated 81 mg PO QDAY #30 tablet 12/20/16 03/22/17 1 Day Ago Rx TAB] ~03/21/17 Clopidogrel [Plavix] 75 mg PO QDAY #30 tablet 12/20/16 03/22/17 1 Day Ago Rx ~03/21/17 Gabapentin [Neurontin] 600 mg PO BID #60 tablet 12/20/16 03/22/17 1 Day Ago Rx ~03/21/17 Levothyroxine [Synthroid] 150 mcg PO QAM #30 tablet 12/20/16 03/22/17 1 Day Ago Rx ~03/21/17 Albuterol Sulfate [Ventolin HFA] 1 puff PO PRN PRN 12/28/16 03/22/17 1 Day Ago History ~03/21/17 AtorvaSTATin [Lipitor] 80 mg PO QDAY 12/28/16 03/22/17 1 Day Ago History ~03/21/17 Carvedilol [Coreg] 25 mg PO QDAY 12/28/16 03/22/17 1 Day Ago History ~03/21/17 Ferrous Sulfate [Feosol 325 MG tab] 0.5 tab PO QDAY 12/28/16 03/22/17 1 Day Ago History ~03/21/17 Lisinopril [Zestril] 40 mg PO QDAY 12/28/16 03/22/17 1 Day Ago History ~03/21/17 amLODIPine [Norvasc] 10 mg PO QDAY 12/28/16 03/22/17 1 Day Ago History ~03/21/17 hydrOXYzine PAMOATE [Vistaril] 25 mg PO QDAY 12/28/16 03/22/17 1 Day Ago History ~03/21/17 Active Meds: Active Medications Acetaminophen (Tylenol) 650 mg PO Q4H PRN PRN Reason: Pain MILD(1-3)/Fever >100.5/LUCERO Acetaminophen/Butalbital/Caffeine (Fioricet) 1 tab PO Q6H PRN PRN Reason: Headache Acetaminophen/Hydrocodone Bitart ([place] 7.5/325) 1 each PO Q4H PRN PRN Reason: Pain, Moderate (4-6) Last Admin: 03/23/17 08:29 Dose: 1 each Albuterol (Proventil) 2.5 mg IH Q4HRT PRN PRN Reason: Shortness Of Breath Aspirin (Halfprin Ec) 81 mg PO QDAY [facility] Last Admin: 03/23/17 09:02 Dose: 81 mg Atorvastatin Calcium (Lipitor) 80 mg PO QDAY [facility] Last Admin: 03/23/17 09:02 Dose: 80 mg Bisacodyl (Dulcolax) 10 mg MD QDAY PRN PRN Reason: Constipation unrelieved by MOM Bupropion [facility] ([facility] Xl) [facility] Last Admin: 03/23/17 09:01 Dose: 150 mg Carvedilol (Coreg) 25 mg PO QDAY [facility] Last Admin: 03/22/17 11:08 Dose: 25 mg Clopidogrel Bisulfate (Plavix) 75 mg PO QDAY [facility] Last Admin: 03/23/17 09:01 Dose: 75 mg Cyanocobalamin (Vitamin B-12) 1,000 mcg PO DAILY [facility] Last Admin: 03/23/17 09:01 Dose: 1,000 mcg Cyclobenzaprine HCl (Flexeril) 10 mg PO TID PRN PRN Reason: Muscle Spasm Cyclobenzaprine HCl (Flexeril) 5 mg PO Q8H [facility] Last Admin: 03/23/17 08:47 Dose: Not Given Duloxetine HCl (Cymbalta) 60 mg PO QDAY [facility] Last Admin: 03/23/17 09:01 Dose: 60 mg Enoxaparin Sodium (Lovenox) 40 mg SUB-Q QDAY [facility] Last Admin: 03/23/17 09:03 Dose: 40 mg Escitalopram Oxalate (Lexapro) 10 mg PO QDAY [facility] Last Admin: 03/23/17 09:01 Dose: 10 mg Ferrous Sulfate (Feosol) 325 mg PO QDAY [facility] Last Admin: 03/23/17 09:01 Dose: 325 mg Furosemide (Lasix) 40 mg PO QDAY [facility] Last Admin: 03/23/17 09:03 Dose: 40 mg Gabapentin (Neurontin) 600 mg PO BID [facility] Last Admin: 03/23/17 09:01 Dose: 600 mg Hydroxyzine Pamoate (Vistaril) 25 mg PO QDAY [facility] Last Admin: 03/22/17 11:04 Dose: 25 mg Ibuprofen (Motrin) 600 mg PO Q12H PRN PRN Reason: Moder Pain unrelieved by Howard Levothyroxine Sodium (Synthroid) 150 mcg PO QAM@0600 [facility] Last Admin: 03/23/17 06:39 Dose: 150 mcg Magnesium Hydroxide (Milk Of Magnesia) 30 ml PO Q4H PRN PRN Reason: Constipation Mirtazapine (Remeron) 30 mg PO QDAY [facility] Last Admin: 03/23/17 09:01 Dose: 30 mg Miscellaneous Medication (Naltrexone (Nf)) 50 mg PO QAM [facility] Morphine Sulfate (Morphine) 4 mg IV Q4H PRN PRN Reason: Pain , Severe (7-10) Last Admin: 03/22/17 11:04 Dose: 4 mg Nitroglycerin (Nitro-Bid 2%) 1 inch TP Q6H [facility] PRN Reason: Protocol Last Admin: 03/23/17 09:03 Dose: Not Given Olanzapine (Zyprexa) 20 mg PO QDAY PRN PRN Reason: Agitation Ondansetron HCl (Zofran) 4 mg IV Q8H PRN PRN Reason: N/V unrelieved by Reglan Oxycodone/Acetaminophen (Percocet 5/325) 1 tab PO Q6H PRN PRN Reason: Pain, Moderate (4-6) Last Admin: 03/22/17 20:32 Dose: 1 tab Pantoprazole Sodium (Protonix) 40 mg PO QDAY [facility] Last Admin: 03/22/17 11:07 Dose: 40 mg Quetiapine Fumarate (Seroquel) 400 mg PO HS [facility] Last Admin: 03/22/17 22:55 Dose: 400 mg Trazodone HCl (Desyrel) 100 mg PO QDAY [facility] Last Admin: 03/23/17 09:01 Dose: 100 mg Physical Examination Vital Signs Pulse Resp BP Pulse Ox 63 15 147/73 99 03/21/17 19:51 03/21/17 19:51 03/21/17 19:51 03/21/17 19:51 General appearance: no acute distress HEENT: Positive: PERRL Neck: Positive: trachea midline Cardiac: Positive: Reg Rate and Rhythm Lungs: Positive: Decreased Breath Sounds Neuro: Positive: Grossly Intact Results 03/22/17 03:50 03/23/17 05:19 Cardiac Enzymes 03/22/17 Range/Units 11:57 CK-MB (CK-2) 5.7 H (0.0-4.0) ng/mL Comprehensive Metabolic Panel 03/23/17 Range/Units 05:19 Potassium 4.5 D (3.6-5.0) mmol/L Assessment and Plan Atypical chest pain Back pain Hypertension Hx of CAD [facility] 12/2016 findings: patent 2 vessel stents-Diag and mid RCA. medical therapy recommended for ostial disease of the Diag sub-branch. ejection fraction 55-60%. No further cardiac workup indicated. Medical therapy for coronary artery disease to include DAPT, beta blockers, statins and long acting nitrates. [facility] 1-2wks [facility] discharge.
--- NOTE | 2017-03-23 13:25 | Discharge Summary ---
<MARIELOS REID - Last Filed: 03/23/17 14:56> Providers - Providers Date of Admission: 03/21/17 23:42 Date of discharge: 03/23/17 Attending physician: ISABEL GLASS 03/22/17 13:04 Consult to Cardiology [CONS] Routine Consulting Provider: MOOK AGUIRRE Reason For Exam: Chest Pain Primary care physician: WHOLESALE AGRONOMIST Hospitalization Condition: Stable Pertinent studies: Chest x-ray revealed no cardiopulmonary abnormality. Her spine CT revealed degenerative changes and postoperative change. Hospital course: 56-year-old -Swiss female with past medical history of hypertension gastroesophageal of his disease COPD coronary artery disease and hypothyroidism comes in for left-sided chest pain of one week duration.pain is left-sided and nonradiating. Pain is about 8 scale of 1-10. No diaphoresis no palpitations no shortness of breath. No recent travel.No exacerbating or relieving factors. Patient was treated with potassium, nitrates, antihypertensives, antipsychotics , antidepressants, analgesics. Patient received DVT prophylaxis with Lovenox and resume home medications. Discharge diagnoses Chest pain Coronary artery disease Hypertension Hypothyroidism COPD Hyperlipidemia Peripheral neuropathy Bipolar disorder DVT prophylaxis Disposition: DC-01 TO HOME OR SELFCARE Time spent for discharge: 35 mins Exam - Constitutional Vitals: Temp Pulse Resp BP Pulse Ox 98.8 F 58 L 20 90/46 94 03/23/17 09:11 03/23/17 11:35 03/23/17 09:11 03/23/17 09:11 03/23/17 09:11 Plan Follow up with: CHUY RESENDIZ MD [Primary Care Provider] - 3-5 Days PENNY SEN MD [Staff Physician] - 10 Days Prescriptions: HYDROcodone/APAP 7.5-325 [[place] 7.5-325 mg TAB] 1 each PO Q4H PRN #12 tablet PRN Reason: Pain, Moderate (4-6) hydrOXYzine PAMOATE [Vistaril] 25 mg PO QDAY #30 capsule ISOSORBIDE MONOnitrate [Imdur ER] 30 mg PO DAILY #30 tab.er.24h Pantoprazole [Protonix TAB] 40 mg PO QDAY #30 tablet <ISABEL GLASS - Last Filed: 03/30/17 16:37> Providers - Providers Date of Admission: 03/21/17 23:42 Attending physician: ISABEL GLASS 03/22/17 13:04 Consult to Cardiology [CONS] Routine Consulting Provider: MOOK AGUIRRE Reason For Exam: Chest Pain Primary care physician: WHOLESALE AGRONOMIST Hospitalization Hospital course: I saw and evaluated the patient. I agree with the findings and the plan of care as documented in the Nurse Practitioner's~note, with the following corrections and additions. Patient presented with chest pain. Chest pain due to stable angina. Core Measure Documentation - Palliative Care Palliative Care/ Comfort Measures: Not Applicable - Core Measures Any of the following diagnoses?: none Exam - Constitutional Vitals: Temp Pulse Resp BP Pulse Ox 98.8 F 58 L 20 90/46 94 03/23/17 09:11 03/23/17 11:35 03/23/17 09:11 03/23/17 09:11 03/23/17 09:11
== END 2017-03-23 15:00 | disposition home or self-care (01) | DRG 313 ==
LOC: ED 19:46 → 4A 23:42
PROVIDERS: ADMIT Internal Medicine; ATTEND Internal Medicine
DX: R07.89 Other chest pain (principal); K21.0 Gastro-esophageal reflux disease with esophagitis; J44.9 Chronic obstructive pulmonary disease, unspecified; I25.10 Atherosclerotic heart disease of native coronary artery without angina pectoris; I10 Essential (primary) hypertension; E03.9 Hypothyroidism, unspecified; E78.5 Hyperlipidemia, unspecified; G62.9 Polyneuropathy, unspecified; F31.9 Bipolar disorder, unspecified; I25.2 Old myocardial infarction; Z79.899 Other long term (current) drug therapy; Z90.49 Acquired absence of other specified parts of digestive tract; Z98.51 Tubal ligation status; Z82.49 Family history of ischemic heart disease and other diseases of the circulatory system; M54.9 Dorsalgia, unspecified
CPT/HCPCS: 36415; 71010; 72131; 80048; 80053; 81001; 82550; 82553; 83036; 84132; 84484; 85025; 93005; 93010; 96374; 99406; A9270-GY; J1650; J1885; J2270; Q0177

== ENCOUNTER 2017-03-30 20:22 | Emergency (ER) | payer MEDICARE ==
[2017-03-30 21:21] VITALS: BP 105/80
[2017-03-31] MEDS ORDERED: TORADOL IM ONE (03:14)
--- NOTE | 2017-03-31 03:25 | Emergency Department Report ---
ED General Adult HPI - General Chief complaint: Extremity Problem,Nontraumatic Stated complaint: BACK,RIGHT LEG PAIN Time Seen by Provider: 03/31/17 02:59 Source: patient Mode of arrival: Ambulatory Limitations: No Limitations - History of Present Illness Initial comments: Patient is a 56-year-old -[place] female with history of lumbar DJD patient seen for same complaint on 03/21/2017 patient presents for right lumbar and right lower extremity pain states acute on chronic condition however has not been able to see pain management doctor since moving to [place] last pain management visit 6 months to a year ago in [facility] [place] state has not found a pain management doctor in [place] yet. Pain described as for 5/10 burning tingling radiating from the low back to to right lateral leg has been no fall or injury or trauma there is no weakness no numbness no tingling no loss or decrease in bowel or bladder function , she states ambulatory to baseline there is no calf thigh or groin tenderness or pain patient states usual treatment is hydrocodone versus Lortab by mouth when necessary for pain and that NSAIDs baclofen and muscle relaxants don't work for her. Patient does have a local PCP at this point I cannot see him until next week. -: unknown (chronic right LE pain ) Location: back, lower extremity Radiation: extremity Severity scale (0 -10): 5 Quality: burning, aching Consistency: intermittent Improves with: none Worsens with: movement, other (increased activity ) Associated Symptoms: denies: confusion, chest pain, fever/chills, headaches, loss of appetite, malaise, nausea/vomiting, rash, seizure, shortness of breath, syncope, weakness Treatments Prior to Arrival: none - Related Data Home Medications Medication Instructions Recorded Confirmed Last Taken Cyanocobalamin [Vitamin B-12] 1,000 mcg PO DAILY 12/17/16 03/22/17 1 Day Ago ~03/21/17 Naltrexone (Nf) [Revia (Nf)] 50 mg PO QAM 12/17/16 03/22/17 1 Day Ago ~03/21/17 Quetiapine Fumarate [QUEtiapine 400 mg PO HS 12/17/16 03/22/17 1 Day Ago Fumarate] ~03/21/17 buPROPion XL [Wellbutrin XL] 150 mg PO QAM 12/17/16 03/22/17 1 Day Ago ~03/21/17 traZODone [Desyrel] 100 mg PO QDAY 12/17/16 03/22/17 1 Day Ago ~03/21/17 Albuterol Sulfate [Ventolin HFA] 1 puff PO PRN PRN 12/28/16 03/22/17 1 Day Ago ~03/21/17 AtorvaSTATin [Lipitor] 80 mg PO QDAY 12/28/16 03/22/17 1 Day Ago ~03/21/17 Carvedilol [Coreg] 25 mg PO QDAY 12/28/16 03/22/17 1 Day Ago ~03/21/17 Ferrous Sulfate [Feosol 325 MG tab] 0.5 tab PO QDAY 12/28/16 03/22/17 1 Day Ago ~03/21/17 Lisinopril [Zestril] 40 mg PO QDAY 12/28/16 03/22/17 1 Day Ago ~03/21/17 amLODIPine [Norvasc] 10 mg PO QDAY 12/28/16 03/22/17 1 Day Ago ~03/21/17 Previous Rx's Medication Instructions Recorded Last Taken Type Aspirin EC [Aspirin Enteric Coated 81 mg PO QDAY #30 tablet 12/20/16 1 Day Ago Rx TAB] ~03/21/17 Clopidogrel [Plavix] 75 mg PO QDAY #30 tablet 12/20/16 1 Day Ago Rx ~03/21/17 Gabapentin [Neurontin] 600 mg PO BID #60 tablet 12/20/16 1 Day Ago Rx ~03/21/17 Levothyroxine [Synthroid] 150 mcg PO QAM #30 tablet 12/20/16 1 Day Ago Rx ~03/21/17 HYDROcodone/APAP 7.5-325 [[place] 1 each PO Q4H PRN #12 tablet 03/23/17 Unknown Rx 7.5-325 mg TAB] ISOSORBIDE MONOnitrate [Imdur ER] 30 mg PO DAILY #30 tab.er.24h 03/23/17 Unknown Rx Pantoprazole [Protonix TAB] 40 mg PO QDAY #30 tablet 03/23/17 Unknown Rx hydrOXYzine PAMOATE [Vistaril] 25 mg PO QDAY #30 capsule 03/23/17 Unknown Rx Acetaminophen 1,000 mg PO QID PRN #60 tablet 03/31/17 Unknown Rx Diclofenac Sodium [Voltaren] 100 gm TP TID PRN #1 tube 03/31/17 Unknown Rx Allergies Allergy/AdvReac Type Severity Reaction Status Date / Time No Known Allergies Allergy Verified 12/17/16 11:28 ED Review of Systems ROS: Stated complaint: BACK,RIGHT LEG PAIN Other details as noted in HPI Constitutional: denies: chills, fever Eyes: denies: eye pain, eye discharge, vision change ENT: denies: ear pain, throat pain Respiratory: denies: cough, shortness of breath, wheezing Cardiovascular: denies: chest pain, palpitations Endocrine: no symptoms reported Gastrointestinal: denies: abdominal pain, nausea, diarrhea Genitourinary: denies: urgency, dysuria, discharge Musculoskeletal: back pain, arthralgia, myalgia. denies: joint swelling Skin: denies: rash, lesions Neurological: denies: headache, weakness, numbness, paresthesias, confusion, abnormal gait Psychiatric: denies: anxiety, depression Hematological/Lymphatic: denies: easy bleeding, easy bruising ED Past Medical Hx - Past Medical History Hx Hypertension: Yes Hx Heart Attack/AMI: Yes Hx Diabetes: No Hx GERD: Yes Hx Asthma: Yes (chronic bronchitis) Hx COPD: Yes Hx HIV: No Additional medical history: CAD, hyperthyroid, carpal tunnel - Surgical History Hx Coronary Stent: Yes (4) Hx Cholecystectomy: Yes Additional Surgical History: neck fusion, right hand, back surgery, tonsillectomy, tubal ligation - Social History Smoking Status: Never Smoker Substance Use Type: None - Medications Home Medications: Home Medications Medication Instructions Recorded Confirmed Last Taken Type Cyanocobalamin [Vitamin B-12] 1,000 mcg PO DAILY 12/17/16 03/22/17 1 Day Ago History ~03/21/17 Naltrexone (Nf) [Revia (Nf)] 50 mg PO QAM 12/17/16 03/22/17 1 Day Ago History ~03/21/17 Quetiapine Fumarate [QUEtiapine 400 mg PO HS 12/17/16 03/22/17 1 Day Ago History Fumarate] ~03/21/17 buPROPion XL [Wellbutrin XL] 150 mg PO QAM 12/17/16 03/22/17 1 Day Ago History ~03/21/17 traZODone [Desyrel] 100 mg PO QDAY 12/17/16 03/22/17 1 Day Ago History ~03/21/17 Aspirin EC [Aspirin Enteric Coated 81 mg PO QDAY #30 tablet 12/20/16 03/22/17 1 Day Ago Rx TAB] ~03/21/17 Clopidogrel [Plavix] 75 mg PO QDAY #30 tablet 12/20/16 03/22/17 1 Day Ago Rx ~03/21/17 Gabapentin [Neurontin] 600 mg PO BID #60 tablet 12/20/16 03/22/17 1 Day Ago Rx ~03/21/17 Levothyroxine [Synthroid] 150 mcg PO QAM #30 tablet 12/20/16 03/22/17 1 Day Ago Rx ~03/21/17 Albuterol Sulfate [Ventolin HFA] 1 puff PO PRN PRN 12/28/16 03/22/17 1 Day Ago History ~03/21/17 AtorvaSTATin [Lipitor] 80 mg PO QDAY 12/28/16 03/22/17 1 Day Ago History ~03/21/17 Carvedilol [Coreg] 25 mg PO QDAY 12/28/16 03/22/17 1 Day Ago History ~03/21/17 Ferrous Sulfate [Feosol 325 MG tab] 0.5 tab PO QDAY 12/28/16 03/22/17 1 Day Ago History ~03/21/17 Lisinopril [Zestril] 40 mg PO QDAY 12/28/16 03/22/17 1 Day Ago History ~03/21/17 amLODIPine [Norvasc] 10 mg PO QDAY 12/28/16 03/22/17 1 Day Ago History ~03/21/17 HYDROcodone/APAP 7.5-325 [[place] 1 each PO Q4H PRN #12 tablet 03/23/17 Unknown Rx 7.5-325 mg TAB] ISOSORBIDE MONOnitrate [Imdur ER] 30 mg PO DAILY #30 tab.er.24h 03/23/17 Unknown Rx Pantoprazole [Protonix TAB] 40 mg PO QDAY #30 tablet 03/23/17 Unknown Rx hydrOXYzine PAMOATE [Vistaril] 25 mg PO QDAY #30 capsule 03/23/17 Unknown Rx Acetaminophen 1,000 mg PO QID PRN #60 tablet 03/31/17 Unknown Rx Diclofenac Sodium [Voltaren] 100 gm TP TID PRN #1 tube 03/31/17 Unknown Rx ED Physical Exam - General Limitations: No Limitations General appearance: alert, in no apparent distress - Head Head exam: Present: atraumatic, normocephalic - Eye Eye exam: Present: normal appearance, PERRL, EOMI Pupils: Present: normal accommodation - ENT ENT exam: Present: mucous membranes moist - Neck Neck exam: Present: normal inspection, full ROM. Absent: tenderness, lymphadenopathy, thyromegaly - Respiratory Respiratory exam: Present: normal lung sounds bilaterally. Absent: respiratory distress, wheezes, stridor, chest wall tenderness - Cardiovascular Cardiovascular Exam: Present: regular rate, normal rhythm. Absent: systolic murmur, diastolic murmur, rubs, gallop - GI/Abdominal GI/Abdominal exam: Present: soft, normal bowel sounds - Rectal Rectal exam: Present: deferred - Extremities Exam Extremities exam: Present: normal inspection, full ROM, normal capillary refill. Absent: tenderness, pedal edema, joint swelling, calf tenderness - Expanded Lower Extremity Exam Right Hip exam: Present: full ROM. Absent: tenderness, swelling, abrasion, laceration , ecchymosis, deformity, crepidus, dislocation, erythema, external rotation, internal rotation, shortening, pelvic stability Upper Leg exam: Present: normal inspection, full ROM. Absent: abrasion, laceration, ecchymosis, deformity, dislocation, erythema Knee exam: Present: normal inspection, full ROM. Absent: tenderness Lower Leg exam: Present: normal inspection, full ROM Ankle exam: Present: normal inspection, full ROM Foot/Toe exam: Present: normal inspection, full ROM Neuro vascular tendon exam: Present: no vascular compromise. Absent: pulse deficit, abnormal cap refill, motor deficit, sensory deficit, tendon deficit, extremity cold to touch, pallor, abnormal 2-point discrimination, decreased fine /light touch, foot drop Gait: Positive: observed and normal - Back Exam Back exam: Present: normal inspection, full ROM, tenderness (right lateral lumbar ). Absent: CVA tenderness (R), CVA tenderness (L), muscle spasm, paraspinal tenderness, vertebral tenderness, rash noted - Expanded Back Exam Expanded Back exam: Absent: saddle anesthesia Back exam: Sciatic Notch Tenderness: Right, Negative Straight Leg Raising: Right - Neurological Exam Neurological exam: Present: alert, oriented X3, CN II-XII intact, normal gait, reflexes normal - Expanded Neurological Exam Expanded Patient oriented to: Present: person, place, time Speech: Present: fluid speech Cranial nerves: EOM's Intact: Normal, Gag Reflex: Normal, Tongue Deviation: Normal, Nystagmus: Normal, Facial Sensation: Normal Cerebellar function: Finger to Nose: Normal, Heel to Rubi: Normal, Romberg: Normal Upper motor neuron: Nick Neglect: Normal, Pronator Drift: Normal, Babinski Sign : Normal, Sensory Extinction: Normal Sensory exam: Upper Extremity Light Touch: Normal, Upper Extremity Pin Prick: Normal, Upper Extremity Temperature: Normal, UE 2 Point Discrimination: Normal, Lower Extremity Light Touch: Normal, Lower Extremity Pin Prick: Normal, Lower Extremity Temperature: Normal, LE 2 Point Discrimination: Normal Motor strength exam: RUE: 5, LUE: 5, RLE: 5, LLE: 5 DTR: bicep (R): 2+, bicep (L): 2+, tricep (R): 2+, tricep (L): 2+, knee (R): 2+ , knee (L): 2+, ankle (R): 2+, ankle (L): 2+ Best Eye Response ([place]): (4) open spontaneously Best Motor Response ([place]): (6) obeys commands Best Verbal Response ([place]): (5) oriented [place] Total: 15 - Psychiatric Psychiatric exam: Present: normal affect, normal mood - Skin Skin exam: Present: warm ED Course Vital Signs 03/30/17 21:18 Temperature 98.7 F Pulse Rate 74 Respiratory 20 Rate Blood Pressure 105/80 O2 Sat by Pulse 99 Oximetry ED Medical Decision Making - Medical Decision Making Patient is a 56-year-old -[place] female with history of lumbar DJD patient seen for same complaint on 03/21/2017 patient presents for right lumbar and right lower extremity pain states acute on chronic condition however has not been able to see pain management doctor since moving to [place] last pain management visit 6 months to a year ago in [facility] state has not found a pain management doctor in [place] yet. Pain described as for 5/10 burning tingling radiating from the low back to to right lateral leg has been no fall or injury or trauma there is no weakness no numbness no tingling no loss or decrease in bowel or bladder function , she states ambulatory to baseline there is no calf thigh or groin tenderness or pain patient states usual treatment is hydrocodone versus Lortab by mouth when necessary for pain and that NSAIDs baclofen and muscle relaxants don't work for her. Patient does have a local PCP at this point I cannot see him until next week. Exam patient appears well and nontoxic there is no posterior vertebral point tenderness mild paraspinous tenderness lumbar to deep palpation mild tenderness to right sciatic notch positive right leg raise 60 line range of motion fully intact no restriction at this time there is no weakness negative Homans sign no thigh tenderness. Pedal Pulses equally palpable bilateral +2 , Given all findings are chronic, patient offered rx for acetaminophen and Voltaren rub prn pain follow with primary care as scheduled patient DC'd to home in stable condition at this time Critical care attestation.: If time is entered above; I have spent that time in minutes in the direct care of this critically ill patient, excluding procedure time. ED Disposition Clinical Impression: Leg pain, right Chronic low back pain with bilateral sciatica Qualifiers: Back pain laterality: right Qualified Code(s): M54.41 - Lumbago with sciatica, right side; M54.42 - Lumbago with sciatica, left side; M54.42 - Lumbago with sciatica, left side; G89.29 - Other chronic pain; G89.29 - Other chronic pain Disposition: DC-01 TO HOME OR SELFCARE Is pt being admited?: No Does the pt Need Aspirin: No Condition: Good Instructions: Lumbar Radiculopathy (ED), Arthralgia (ED), Chronic Back Pain (ED ) Prescriptions: Acetaminophen 1,000 mg PO QID PRN #60 tablet PRN Reason: Pain Diclofenac Sodium [Voltaren] 100 gm TP TID PRN #1 tube PRN Reason: Pain Referrals: SAL CR MD [Primary Care Provider] - 3-5 Days Forms: Work/School Release Form(ED) Time of Disposition: 03:38
== END 2017-03-31 04:53 | disposition home or self-care (01) ==
LOC: ED 20:22
DX: M54.42 Lumbago with sciatica, left side (principal); M54.41 Lumbago with sciatica, right side; I10 Essential (primary) hypertension; I25.2 Old myocardial infarction; K21.9 Gastro-esophageal reflux disease without esophagitis; J44.9 Chronic obstructive pulmonary disease, unspecified; Z95.1 Presence of aortocoronary bypass graft; Z79.82 Long term (current) use of aspirin
CPT/HCPCS: 96372; 99282; J1885

== ENCOUNTER → 2017-04-13 | Outpatient (CLI) | payer MEDICARE | LOC: SLR 11:00 | PROVIDERS: ATTEND Internal Medicine Pulmonary Disease | DX: G47.33 Obstructive sleep apnea (adult) (pediatric) (principal); I10 Essential (primary) hypertension | CPT/HCPCS: 95811 ==

== ENCOUNTER 2017-07-13 19:19 | Emergency (ER) | payer MEDICARE ==
[2017-07-13 19:52] LABS: Basophils # (Auto) 0.1 K/mm3 (0.0-0.1); Basophils % (Auto) 0.9 % (0.0-1.8); Eosinophils # (Auto) 0.1 K/mm3 (0.0-0.4); Eosinophils % (Auto) 1.6 % (0.0-4.3); Hematocrit 37.7 % (30.3-42.9); Hemoglobin 12.8 gm/dl (10.1-14.3); Lymphocytes # (Auto) 2.5 K/mm3 (1.2-5.4); Lymphocytes % (Auto) 40.7 % (13.4-35.0); Mean Corpuscular HGB Conc 34 % (30-34); Mean Corpuscular Hemoglobin 28 pg (28-32); Mean Corpuscular Volume 82 fl (79-97); Monocytes # (Auto) 0.8 K/mm3 (0.0-0.8); Monocytes % (Auto) 13.2 % (0.0-7.3); Platelet Count 282 K/mm3 (140-440); Red Blood Count 4.57 M/mm3 (3.65-5.03); Red Cell Distribution Width 14.6 % (13.2-15.2)
[2017-07-13 20:15] LABS: Alanine Aminotransferase 11 units/L (7-56); Albumin 3.9 g/dL (3.9-5); BUN/Creatinine Ratio 14; Blood Urea Nitrogen 13 mg/dL (7-17); Hemolysis Index 39
[2017-07-13 22:19] LABS: Bacteria,Urine 1+ /HPF (Negative); Bilirubin,Urine NEG (Negative); Blood,Urine NEG (Negative); Color,Urine Yellow (Yellow); Hyaline Casts,Urine 3 /LPF; Mucus,Urine 2+ /HPF; Urobilinogen,Urine < 2.0 mg/dL (<2.0)
[2017-07-13] MEDS ORDERED: PEPCID IV ONE (23:33)
[2017-07-13] MEDS ORDERED: ZOFRAN IV ONE (23:33)
[2017-07-13] MEDS ORDERED: NACL 0.9% 1000 ML 1,000 ML IV ONE (23:33)
--- NOTE | 2017-07-14 00:32 | Emergency Department Report ---
ED N/V/D HPI - General Chief complaint: Abdominal Pain Stated complaint: ABD PAIN/ VOMITING Time Seen by Provider: 07/13/17 23:22 Source: patient Mode of arrival: Ambulatory Limitations: No Limitations - History of Present Illness Initial comments: Patient is a 56-year-old black female who is presenting with 2 days of nausea vomiting and some epigastric discomfort. Patient states that every time she tries to eat she feels some increased discomfort in the epigastrium stasis tight feeling for 10 in severity. Patient is vomited twice she is unable to keep anything down. Patient also states she last had a bowel movement 2 days ago and has had some decreased flatus and no bowel movements in the last 24 hours. Patient denies any fever cough at this time. - Related Data Home Medications Medication Instructions Recorded Confirmed Last Taken Cyanocobalamin [Vitamin B-12] 1,000 mcg PO DAILY 12/17/16 03/22/17 1 Day Ago ~03/21/17 Naltrexone (Nf) [Revia (Nf)] 50 mg PO QAM 12/17/16 03/22/17 1 Day Ago ~03/21/17 Quetiapine Fumarate [QUEtiapine 400 mg PO HS 12/17/16 03/22/17 1 Day Ago Fumarate] ~03/21/17 buPROPion XL [Wellbutrin XL] 150 mg PO QAM 12/17/16 03/22/17 1 Day Ago ~03/21/17 traZODone [Desyrel] 100 mg PO QDAY 12/17/16 03/22/17 1 Day Ago ~03/21/17 Albuterol Sulfate [Ventolin HFA] 1 puff PO PRN PRN 12/28/16 03/22/17 1 Day Ago ~03/21/17 AtorvaSTATin [Lipitor] 80 mg PO QDAY 12/28/16 03/22/17 1 Day Ago ~03/21/17 Carvedilol [Coreg] 25 mg PO QDAY 12/28/16 03/22/17 1 Day Ago ~03/21/17 Ferrous Sulfate [Feosol 325 MG tab] 0.5 tab PO QDAY 12/28/16 03/22/17 1 Day Ago ~03/21/17 Lisinopril [Zestril] 40 mg PO QDAY 12/28/16 03/22/17 1 Day Ago ~03/21/17 amLODIPine [Norvasc] 10 mg PO QDAY 12/28/16 03/22/17 1 Day Ago ~03/21/17 Previous Rx's Medication Instructions Recorded Last Taken Type Aspirin EC [Aspirin Enteric Coated 81 mg PO QDAY #30 tablet 12/20/16 1 Day Ago Rx TAB] ~03/21/17 Clopidogrel [Plavix] 75 mg PO QDAY #30 tablet 12/20/16 1 Day Ago Rx ~03/21/17 Gabapentin [Neurontin] 600 mg PO BID #60 tablet 12/20/16 1 Day Ago Rx ~03/21/17 Levothyroxine [Synthroid] 150 mcg PO QAM #30 tablet 12/20/16 1 Day Ago Rx ~03/21/17 HYDROcodone/APAP 7.5-325 [[place] 1 each PO Q4H PRN #12 tablet 03/23/17 Unknown Rx 7.5-325 mg TAB] ISOSORBIDE MONOnitrate [Imdur ER] 30 mg PO DAILY #30 tab.er.24h 03/23/17 Unknown Rx Pantoprazole [Protonix TAB] 40 mg PO QDAY #30 tablet 03/23/17 Unknown Rx hydrOXYzine PAMOATE [Vistaril] 25 mg PO QDAY #30 capsule 03/23/17 Unknown Rx Acetaminophen 1,000 mg PO QID PRN #60 tablet 03/31/17 Unknown Rx Diclofenac Sodium [Voltaren] 100 gm TP TID PRN #1 tube 03/31/17 Unknown Rx Dicyclomine [Bentyl] 20 mg PO QID #15 tablet 07/14/17 Unknown Rx Famotidine [Pepcid] 40 mg PO QHS #10 tablet 07/14/17 Unknown Rx Ondansetron [Zofran Odt] 4 mg PO Q8HR #10 tab.rapdis 07/14/17 Unknown Rx Allergies Allergy/AdvReac Type Severity Reaction Status Date / Time No Known Allergies Allergy Verified 12/17/16 11:28 ED Review of Systems ROS: Stated complaint: ABD PAIN/ VOMITING Other details as noted in HPI Comment: All other systems reviewed and negative ED Past Medical Hx - Past Medical History Previous Medical History?: Yes Hx Hypertension: Yes Hx Heart Attack/AMI: Yes Hx Diabetes: No Hx GERD: Yes Hx Asthma: Yes (chronic bronchitis) Hx COPD: Yes Hx HIV: No Additional medical history: CAD, hyperthyroid, carpal tunnel - Surgical History Past Surgical History?: Yes Hx Coronary Stent: Yes (4) Hx Cholecystectomy: Yes Additional Surgical History: neck fusion, right hand, back surgery, tonsillectomy, tubal ligation - Social History Smoking Status: Current Every Day Smoker Substance Use Type: None - Medications Home Medications: Home Medications Medication Instructions Recorded Confirmed Last Taken Type Cyanocobalamin [Vitamin B-12] 1,000 mcg PO DAILY 12/17/16 03/22/17 1 Day Ago History ~03/21/17 Naltrexone (Nf) [Revia (Nf)] 50 mg PO QAM 12/17/16 03/22/17 1 Day Ago History ~03/21/17 Quetiapine Fumarate [QUEtiapine 400 mg PO HS 12/17/16 03/22/17 1 Day Ago History Fumarate] ~03/21/17 buPROPion XL [Wellbutrin XL] 150 mg PO QAM 12/17/16 03/22/17 1 Day Ago History ~03/21/17 traZODone [Desyrel] 100 mg PO QDAY 12/17/16 03/22/17 1 Day Ago History ~03/21/17 Aspirin EC [Aspirin Enteric Coated 81 mg PO QDAY #30 tablet 12/20/16 03/22/17 1 Day Ago Rx TAB] ~03/21/17 Clopidogrel [Plavix] 75 mg PO QDAY #30 tablet 12/20/16 03/22/17 1 Day Ago Rx ~03/21/17 Gabapentin [Neurontin] 600 mg PO BID #60 tablet 12/20/16 03/22/17 1 Day Ago Rx ~03/21/17 Levothyroxine [Synthroid] 150 mcg PO QAM #30 tablet 12/20/16 03/22/17 1 Day Ago Rx ~03/21/17 Albuterol Sulfate [Ventolin HFA] 1 puff PO PRN PRN 12/28/16 03/22/17 1 Day Ago History ~03/21/17 AtorvaSTATin [Lipitor] 80 mg PO QDAY 12/28/16 03/22/17 1 Day Ago History ~03/21/17 Carvedilol [Coreg] 25 mg PO QDAY 12/28/16 03/22/17 1 Day Ago History ~03/21/17 Ferrous Sulfate [Feosol 325 MG tab] 0.5 tab PO QDAY 12/28/16 03/22/17 1 Day Ago History ~03/21/17 Lisinopril [Zestril] 40 mg PO QDAY 12/28/16 03/22/17 1 Day Ago History ~03/21/17 amLODIPine [Norvasc] 10 mg PO QDAY 12/28/16 03/22/17 1 Day Ago History ~03/21/17 HYDROcodone/APAP 7.5-325 [[place] 1 each PO Q4H PRN #12 tablet 03/23/17 Unknown Rx 7.5-325 mg TAB] ISOSORBIDE MONOnitrate [Imdur ER] 30 mg PO DAILY #30 tab.er.24h 03/23/17 Unknown Rx Pantoprazole [Protonix TAB] 40 mg PO QDAY #30 tablet 03/23/17 Unknown Rx hydrOXYzine PAMOATE [Vistaril] 25 mg PO QDAY #30 capsule 03/23/17 Unknown Rx Acetaminophen 1,000 mg PO QID PRN #60 tablet 03/31/17 Unknown Rx Diclofenac Sodium [Voltaren] 100 gm TP TID PRN #1 tube 03/31/17 Unknown Rx Dicyclomine [Bentyl] 20 mg PO QID #15 tablet 07/14/17 Unknown Rx Famotidine [Pepcid] 40 mg PO QHS #10 tablet 07/14/17 Unknown Rx Ondansetron [Zofran Odt] 4 mg PO Q8HR #10 tab.rapdis 07/14/17 Unknown Rx ED Physical Exam - General Limitations: No Limitations General appearance: alert, in no apparent distress - Head Head exam: Present: atraumatic, normocephalic - Eye Eye exam: Present: normal appearance - ENT ENT exam: Present: mucous membranes moist - Neck Neck exam: Present: normal inspection - Respiratory Respiratory exam: Present: normal lung sounds bilaterally. Absent: respiratory distress, wheezes, rales, rhonchi - Cardiovascular Cardiovascular Exam: Present: regular rate, normal rhythm. Absent: systolic murmur, diastolic murmur, rubs, gallop - GI/Abdominal GI/Abdominal exam: Present: soft, tenderness (epigastric), normal bowel sounds. Absent: distended, guarding, rebound, rigid - Extremities Exam Extremities exam: Present: normal inspection - Back Exam Back exam: Present: normal inspection - Neurological Exam Neurological exam: Present: alert, oriented X3 - Psychiatric Psychiatric exam: Present: normal affect, normal mood - Skin Skin exam: Present: warm, dry, intact, normal color. Absent: rash ED Course Vital Signs 07/13/17 19:20 Temperature 98.4 F Pulse Rate 83 Respiratory 16 Rate Blood Pressure 177/107 O2 Sat by Pulse 98 Oximetry ED Medical Decision Making - Lab Data Result diagrams: 07/13/17 19:40 07/13/17 19:40 Lab Results 07/13/17 07/13/17 07/13/17 Range/Units 19:40 19:40 21:40 WBC 6.1 (4.5-11.0) K/mm3 RBC 4.57 (3.65-5.03) M/mm3 Hgb 12.8 (10.1-14.3) gm/dl Hct 37.7 (30.3-42.9) % MCV 82 (79-97) fl MCH 28 (28-32) pg MCHC 34 (30-34) % RDW 14.6 (13.2-15.2) % Plt Count 282 (140-440) K/mm3 Lymph % (Auto) 40.7 H (13.4-35.0) % [place] % (Auto) 13.2 H (0.0-7.3) % Eos % (Auto) 1.6 (0.0-4.3) % Baso % (Auto) 0.9 (0.0-1.8) % Lymph # 2.5 (1.2-5.4) K/mm3 [place] # 0.8 (0.0-0.8) K/mm3 Eos # 0.1 (0.0-0.4) K/mm3 Baso # 0.1 (0.0-0.1) K/mm3 Seg Neutrophils % 43.6 (40.0-70.0) % Seg Neutrophils # 2.6 (1.8-7.7) K/mm3 Sodium 142 (137-145) mmol/L Potassium 3.5 L (3.6-5.0) mmol/L Chloride 100.8 (98-107) mmol/L Carbon Dioxide 24 (22-30) mmol/L Anion Gap 21 mmol/L BUN 13 (7-17) mg/dL Creatinine 0.9 (0.7-1.2) mg/dL Estimated GFR > 60 ml/min BUN/Creatinine Ratio 14 % Glucose 75 (65-100) mg/dL Calcium 9.0 (8.4-10.2) mg/dL Total Bilirubin 0.40 (0.1-1.2) mg/dL AST 26 (5-40) units/L ALT 11 (7-56) units/L Alkaline Phosphatase 86 (35-129) units/L Total Protein 8.5 H (6.3-8.2) g/dL Albumin 3.9 (3.9-5) g/dL Albumin/Globulin Ratio 0.8 % Lipase (13-60) units/L Urine Color Yellow (Yellow) Urine Turbidity Clear (Clear) Urine pH 5.0 (5.0-7.0) Ur Specific [place] 1.023 (1.003-1.030) Urine Protein 100 mg/dl (Negative) mg/dL Urine Glucose (UA) Neg (Negative) mg/dL Urine Ketones Tr (Negative) mg/dL Urine Blood Neg (Negative) Urine Nitrite Neg (Negative) Urine Bilirubin Neg (Negative) Urine Urobilinogen < 2.0 (<2.0) mg/dL Ur Leukocyte Esterase Sm (Negative) Urine WBC (Auto) 3.0 (0.0-6.0) /HPF Urine RBC (Auto) 3.0 (0.0-6.0) /HPF U Epithel Cells (Auto) 8.0 (0-13.0) /HPF Urine Bacteria (Auto) 1+ (Negative) /HPF Hyaline Casts 3 /LPF Urine Mucus 2+ /HPF 07/13/17 Range/Units 23:45 WBC (4.5-11.0) K/mm3 RBC (3.65-5.03) M/mm3 Hgb (10.1-14.3) gm/dl Hct (30.3-42.9) % MCV (79-97) fl MCH (28-32) pg MCHC (30-34) % RDW (13.2-15.2) % Plt Count (140-440) K/mm3 Lymph % (Auto) (13.4-35.0) % [place] % (Auto) (0.0-7.3) % Eos % (Auto) (0.0-4.3) % Baso % (Auto) (0.0-1.8) % Lymph # (1.2-5.4) K/mm3 [place] # (0.0-0.8) K/mm3 Eos # (0.0-0.4) K/mm3 Baso # (0.0-0.1) K/mm3 Seg Neutrophils % (40.0-70.0) % Seg Neutrophils # (1.8-7.7) K/mm3 Sodium (137-145) mmol/L Potassium (3.6-5.0) mmol/L Chloride (98-107) mmol/L Carbon Dioxide (22-30) mmol/L Anion Gap mmol/L BUN (7-17) mg/dL Creatinine (0.7-1.2) mg/dL Estimated GFR ml/min BUN/Creatinine Ratio % Glucose (65-100) mg/dL Calcium (8.4-10.2) mg/dL Total Bilirubin (0.1-1.2) mg/dL AST (5-40) units/L ALT (7-56) units/L Alkaline Phosphatase (35-129) units/L Total Protein (6.3-8.2) g/dL Albumin (3.9-5) g/dL Albumin/Globulin Ratio % Lipase 28 (13-60) units/L Urine Color (Yellow) Urine Turbidity (Clear) Urine pH (5.0-7.0) Ur Specific [place] (1.003-1.030) Urine Protein (Negative) mg/dL Urine Glucose (UA) (Negative) mg/dL Urine Ketones (Negative) mg/dL Urine Blood (Negative) Urine Nitrite (Negative) Urine Bilirubin (Negative) Urine Urobilinogen (<2.0) mg/dL Ur Leukocyte Esterase (Negative) Urine WBC (Auto) (0.0-6.0) /HPF Urine RBC (Auto) (0.0-6.0) /HPF U Epithel Cells (Auto) (0-13.0) /HPF Urine Bacteria (Auto) (Negative) /HPF Hyaline Casts /LPF Urine Mucus /HPF - Radiology Data interpreted by me: X-ray of the abdomen and pelvis shows multiple air-fluid levels but does appear to be a gas throughout the colon and rectum however there is marked gaseous distention in the left upper quadrant and on the right side air-fluid levels. Patient may have ileus or partial small bowel obstruction. CT abdomen and pelvis shows no acute process. - Medical Decision Making Patient is a 56-year-old female who is presenting with nausea and vomiting. Patient follows CT does appear to have some liquid stool present patient may develop some diarrhea soon. Patient will be sent home with medicines for nausea vomiting Pepcid and Bentyl. Critical care attestation.: If time is entered above; I have spent that time in minutes in the direct care of this critically ill patient, excluding procedure time. ED Disposition Clinical Impression: Gastroenteritis Disposition: DC-01 TO HOME OR SELFCARE Is pt being admited?: No Does the pt Need Aspirin: No Condition: Stable Instructions: Gastroenteritis (ED) Prescriptions: Famotidine [Pepcid] 40 mg PO QHS #10 tablet Dicyclomine [Bentyl] 20 mg PO QID #15 tablet Ondansetron [Zofran Odt] 4 mg PO Q8HR #10 tab.rapdis Referrals: COLLINS CR MD [Primary Care Provider] - 3-5 Days
[2017-07-14] MEDS ORDERED: NACL ONE (00:52)
--- NOTE | 2017-07-14 01:35 | XRay Report ---
FINAL REPORT PROCEDURE: XR ABD SERIES W CXR 1V TECHNIQUE: Abdominal series complete, including supine and upright AP views of the abdomen and frontal chest. HISTORY: Upper abdominal pain. COMPARISON: Chest radiograph dated 03/11/2017. FINDINGS: Heart: The heart size is top-normal. Mediastinum/Vessels: Mild aortic tortuosity. Lungs/Pleural space: Stable subtle interstitial prominence. Bowel gas pattern: Diffusely air-filled large and small bowel. Masses or calcifications: Pelvic phleboliths. Bony structures: Mild degenerative changes of the spine. Cervical spine fusion. Other: No free intraperitoneal air. IMPRESSION: Heart size top-normal. Mild aortic tortuosity. Stable subtle interstitial prominence. Diffusely air-filled large and small bowel, findings more suggestive of ileus, consider attention on followup radiographs if there is concern for obstruction.
--- NOTE | 2017-07-14 03:19 | Cat Scan Report ---
FINAL REPORT EXAM: CT ABDOMEN PELVIS W CON HISTORY: NV decreased BM, a/f levels on AXR TECHNIQUE: Routine axial imaging was obtained of the abdomen and pelvis following the intravenous injection of 100 cc of Omnipaque 350. Oral Gastroview was also administered. Delayed imaging was obtained of the kidneys ureters and bladder. Sagittal and coronal reconstructions were reviewed. Correlation is made to the previous study of 02/15/2017. FINDINGS: The lung bases are clear. Pleural fluid is not seen. The liver is mildly enlarged. The gallbladder has been removed. The biliary tree appears normal. Pancreas, spleen, and adrenal glands appear normal. The kidneys reveal small cortical cysts bilaterally measuring up to 2 cm in diameter in the lower pole of left kidney. There is no evidence of hydronephrosis. The vascular structures enhance normally. The bowel loops are normal in caliber and course. There are no suspicious air for levels. The appendix appears normal. There is no evidence of free fluid or adenopathy. In the pelvis the uterus and bladder appear normal. The skeletal structures reveal previous laminectomies at the L4-5 and L5-S1 levels. IMPRESSION: Cholecystectomy. No acute process in the abdomen and pelvis. Small cortical cysts in both kidneys. Previous laminectomies at the L4-5 and L5-S1 levels.
[2017-07-14 04:20] VITALS: BP 170/98
== END 2017-07-14 04:10 | disposition home or self-care (01) ==
LOC: ED 19:19
DX: K52.9 Noninfective gastroenteritis and colitis, unspecified (principal); I10 Essential (primary) hypertension; I25.2 Old myocardial infarction; K21.9 Gastro-esophageal reflux disease without esophagitis; J44.9 Chronic obstructive pulmonary disease, unspecified; F17.200 Nicotine dependence, unspecified, uncomplicated; Z90.49 Acquired absence of other specified parts of digestive tract; Z98.51 Tubal ligation status
CPT/HCPCS: 36415; 74022; 74177; 80053; 81001; 83690; 85025; 96361; 96374; 96375; 99284; J2405; J7030; Q9967

== ENCOUNTER 2017-07-27 15:05 | Emergency (ER) | payer MEDICARE ==
[2017-07-27] MEDS ORDERED: ATROVENT IH ONE (16:22)
[2017-07-27] MEDS ORDERED: PROVENTIL IH ONE (16:22)
[2017-07-27] MEDS ORDERED: DELTASONE PO ONE (16:22)
[2017-07-27] MEDS ORDERED: KIONEX PO ONE (16:24)
[2017-07-27] MEDS ORDERED: ZOFRAN IV ONE (16:24)
--- NOTE | 2017-07-27 16:29 | Emergency Department Report ---
ED General Adult HPI - General Chief complaint: Dyspnea/Respdistress Stated complaint: HILARIO Time Seen by Provider: 07/27/17 16:10 Source: patient, EMS Mode of arrival: Stretcher Limitations: No Limitations - History of Present Illness Initial comments: Ms. Mendiola is a 56-year-old female with history of COPD, VA, CAD, GERD, peptic ulcer disease who presents with general malaise since last night. She's had constipation for 5 days. Vomiting since last night. She's had mild shortness of breath. Nebulizer did not provide any relief. She had no wheezes. She went to work in spite feeling ill. She contacted EMS from her place of employment due to shortness of breath and general malaise. She explains "I just don't feel well." She has mild chest tightness 6 out of 10 which has been persistent constant since last night. She attributes the chest tightness to COPD. She has minimal cough. Last BM 5 days ago. Patient used magnesium citrate for constipation without relief. Severity scale (0 -10): 7 - Related Data Home Medications Medication Instructions Recorded Confirmed Last Taken Cyanocobalamin [Vitamin B-12] 1,000 mcg PO DAILY 12/17/16 03/22/17 1 Day Ago ~03/21/17 Naltrexone (Nf) [Revia (Nf)] 50 mg PO QAM 12/17/16 03/22/17 1 Day Ago ~03/21/17 Quetiapine Fumarate [QUEtiapine 400 mg PO HS 12/17/16 03/22/17 1 Day Ago Fumarate] ~03/21/17 buPROPion XL [Wellbutrin XL] 150 mg PO QAM 12/17/16 03/22/17 1 Day Ago ~03/21/17 traZODone [Desyrel] 100 mg PO QDAY 12/17/16 03/22/17 1 Day Ago ~03/21/17 Albuterol Sulfate [Ventolin HFA] 1 puff PO PRN PRN 12/28/16 03/22/17 1 Day Ago ~03/21/17 AtorvaSTATin [Lipitor] 80 mg PO QDAY 12/28/16 03/22/17 1 Day Ago ~03/21/17 Carvedilol [Coreg] 25 mg PO QDAY 12/28/16 03/22/17 1 Day Ago ~03/21/17 Ferrous Sulfate [Feosol 325 MG tab] 0.5 tab PO QDAY 12/28/16 03/22/17 1 Day Ago ~03/21/17 Lisinopril [Zestril] 40 mg PO QDAY 12/28/16 03/22/17 1 Day Ago ~03/21/17 amLODIPine [Norvasc] 10 mg PO QDAY 12/28/16 03/22/17 1 Day Ago ~03/21/17 Previous Rx's Medication Instructions Recorded Last Taken Type Aspirin EC [Aspirin Enteric Coated 81 mg PO QDAY #30 tablet 12/20/16 1 Day Ago Rx TAB] ~03/21/17 Clopidogrel [Plavix] 75 mg PO QDAY #30 tablet 12/20/16 1 Day Ago Rx ~03/21/17 Gabapentin [Neurontin] 600 mg PO BID #60 tablet 12/20/16 1 Day Ago Rx ~03/21/17 Levothyroxine [Synthroid] 150 mcg PO QAM #30 tablet 12/20/16 1 Day Ago Rx ~03/21/17 HYDROcodone/APAP 7.5-325 [[place] 1 each PO Q4H PRN #12 tablet 03/23/17 Unknown Rx 7.5-325 mg TAB] ISOSORBIDE MONOnitrate [Imdur ER] 30 mg PO DAILY #30 tab.er.24h 03/23/17 Unknown Rx Pantoprazole [Protonix TAB] 40 mg PO QDAY #30 tablet 03/23/17 Unknown Rx hydrOXYzine PAMOATE [Vistaril] 25 mg PO QDAY #30 capsule 03/23/17 Unknown Rx Acetaminophen 1,000 mg PO QID PRN #60 tablet 03/31/17 Unknown Rx Diclofenac Sodium [Voltaren] 100 gm TP TID PRN #1 tube 03/31/17 Unknown Rx Dicyclomine [Bentyl] 20 mg PO QID #15 tablet 07/14/17 Unknown Rx Famotidine [Pepcid] 40 mg PO QHS #10 tablet 07/14/17 Unknown Rx Ondansetron [Zofran Odt] 4 mg PO Q8HR #10 tab.rapdis 07/14/17 Unknown Rx Doxycycline Hyclate [Doxycycline 100 mg PO Q12HR 7 Days #14 tab 07/27/17 Unknown Rx Hyclate TAB] Polyethylene Glycol 3350 [Miralax 17 gm PO BID 7 Days #14 packet 07/27/17 Unknown Rx 3350] predniSONE [Deltasone] 3 tab PO QDAY 5 Days #15 tab 07/27/17 Unknown Rx Allergies Allergy/AdvReac Type Severity Reaction Status Date / Time No Known Allergies Allergy Verified 12/17/16 11:28 ED Review of Systems ROS: Stated complaint: HILARIO Other details as noted in HPI Comment: All other systems reviewed and negative Constitutional: malaise. denies: fever ENT: denies: ear pain, throat pain Respiratory: cough Cardiovascular: chest pain, dyspnea on exertion. denies: palpitations Gastrointestinal: vomiting, constipation. denies: abdominal pain Musculoskeletal: back pain ED Past Medical Hx - Past Medical History Previous Medical History?: Yes Hx Hypertension: Yes Hx Heart Attack/AMI: Yes Hx Diabetes: No Hx GERD: Yes Hx Asthma: Yes (chronic bronchitis) Hx COPD: Yes Hx HIV: No Additional medical history: CAD, hyperthyroid, carpal tunnel - Surgical History Past Surgical History?: Yes Hx Coronary Stent: Yes (4) Hx Cholecystectomy: Yes Additional Surgical History: neck fusion, right hand, back surgery, tonsillectomy, tubal ligation - Social History Smoking Status: Current Every Day Smoker Substance Use Type: None - Medications Home Medications: Home Medications Medication Instructions Recorded Confirmed Last Taken Type Cyanocobalamin [Vitamin B-12] 1,000 mcg PO DAILY 12/17/16 03/22/17 1 Day Ago History ~03/21/17 Naltrexone (Nf) [Revia (Nf)] 50 mg PO QAM 12/17/16 03/22/17 1 Day Ago History ~03/21/17 Quetiapine Fumarate [QUEtiapine 400 mg PO HS 12/17/16 03/22/17 1 Day Ago History Fumarate] ~03/21/17 buPROPion XL [Wellbutrin XL] 150 mg PO QAM 12/17/16 03/22/17 1 Day Ago History ~03/21/17 traZODone [Desyrel] 100 mg PO QDAY 12/17/16 03/22/17 1 Day Ago History ~03/21/17 Aspirin EC [Aspirin Enteric Coated 81 mg PO QDAY #30 tablet 12/20/16 03/22/17 1 Day Ago Rx TAB] ~03/21/17 Clopidogrel [Plavix] 75 mg PO QDAY #30 tablet 12/20/16 03/22/17 1 Day Ago Rx ~03/21/17 Gabapentin [Neurontin] 600 mg PO BID #60 tablet 12/20/16 03/22/17 1 Day Ago Rx ~03/21/17 Levothyroxine [Synthroid] 150 mcg PO QAM #30 tablet 12/20/16 03/22/17 1 Day Ago Rx ~03/21/17 Albuterol Sulfate [Ventolin HFA] 1 puff PO PRN PRN 12/28/16 03/22/17 1 Day Ago History ~03/21/17 AtorvaSTATin [Lipitor] 80 mg PO QDAY 12/28/16 03/22/17 1 Day Ago History ~03/21/17 Carvedilol [Coreg] 25 mg PO QDAY 12/28/16 03/22/17 1 Day Ago History ~03/21/17 Ferrous Sulfate [Feosol 325 MG tab] 0.5 tab PO QDAY 12/28/16 03/22/17 1 Day Ago History ~03/21/17 Lisinopril [Zestril] 40 mg PO QDAY 12/28/16 03/22/17 1 Day Ago History ~03/21/17 amLODIPine [Norvasc] 10 mg PO QDAY 12/28/16 03/22/17 1 Day Ago History ~03/21/17 HYDROcodone/APAP 7.5-325 [[place] 1 each PO Q4H PRN #12 tablet 03/23/17 Unknown Rx 7.5-325 mg TAB] ISOSORBIDE MONOnitrate [Imdur ER] 30 mg PO DAILY #30 tab.er.24h 03/23/17 Unknown Rx Pantoprazole [Protonix TAB] 40 mg PO QDAY #30 tablet 03/23/17 Unknown Rx hydrOXYzine PAMOATE [Vistaril] 25 mg PO QDAY #30 capsule 03/23/17 Unknown Rx Acetaminophen 1,000 mg PO QID PRN #60 tablet 03/31/17 Unknown Rx Diclofenac Sodium [Voltaren] 100 gm TP TID PRN #1 tube 03/31/17 Unknown Rx Dicyclomine [Bentyl] 20 mg PO QID #15 tablet 07/14/17 Unknown Rx Famotidine [Pepcid] 40 mg PO QHS #10 tablet 07/14/17 Unknown Rx Ondansetron [Zofran Odt] 4 mg PO Q8HR #10 tab.rapdis 07/14/17 Unknown Rx Doxycycline Hyclate [Doxycycline 100 mg PO Q12HR 7 Days #14 tab 07/27/17 Unknown Rx Hyclate TAB] Polyethylene Glycol 3350 [Miralax 17 gm PO BID 7 Days #14 packet 07/27/17 Unknown Rx 3350] predniSONE [Deltasone] 3 tab PO QDAY 5 Days #15 tab 07/27/17 Unknown Rx ED Physical Exam - General Limitations: No Limitations General appearance: alert, in no apparent distress - Head Head exam: Present: atraumatic, normocephalic - Eye Eye exam: Present: normal appearance - ENT ENT exam: Present: mucous membranes moist - Neck Neck exam: Present: normal inspection - Respiratory Respiratory exam: Present: normal lung sounds bilaterally. Absent: respiratory distress, wheezes, rales, rhonchi - Cardiovascular Cardiovascular Exam: Present: regular rate, normal rhythm, normal heart sounds. Absent: systolic murmur, diastolic murmur, rubs, gallop - GI/Abdominal GI/Abdominal exam: Present: soft, normal bowel sounds. Absent: distended, tenderness, guarding, rebound - Extremities Exam Extremities exam: Present: normal inspection - Back Exam Back exam: Present: normal inspection - Neurological Exam Neurological exam: Present: alert, oriented X3 - Psychiatric Psychiatric exam: Present: normal affect, normal mood - Skin Skin exam: Present: warm, dry, intact, normal color. Absent: rash ED Course Vital Signs 07/27/17 07/27/17 07/27/17 15:10 16:22 16:38 Temperature 98.8 F Pulse Rate 71 68 Pulse Rate [ 84 Posterior Bilateral Throughout] Respiratory 22 20 Rate Respiratory 16 Rate [Posterior Bilateral Throughout] Blood Pressure 144/85 Blood Pressure 131/78 [Right] O2 Sat by Pulse 99 100 Oximetry 07/27/17 07/27/17 17:17 17:34 Temperature Pulse Rate 78 Pulse Rate [ 92 H Posterior Bilateral Throughout] Respiratory 18 Rate Respiratory 16 Rate [Posterior Bilateral Throughout] Blood Pressure Blood Pressure 139/81 [Right] O2 Sat by Pulse 100 Oximetry ED Medical Decision Making - Lab Data Result diagrams: 07/27/17 16:33 07/27/17 16:33 - EKG Data 07/27/17 16:28 EKG obtained at 1608 Normal sinus rhythm with of 70 bpm left axis deviation normal intervals no ST elevation poor R-wave progression in anterior leads - Medical Decision Making Ms. Mendiola presents with constipation vomiting and dyspnea. Chest tightness atypical for ACS. I reviewed the previous discharge summaries from December and March. She was admitted and evaluated for chest pain on both of these hospitalizations. I review labs and chest x-ray. No evidence of peritonitis or acute intra- abdominal process. No indication of bowel obstruction. No evidence of pneumonia. No evidence of ACS. I prescribed MiraLAX for constipation. Also prescribed prednisone and doxycycline for COPD exacerbation. Critical care attestation.: If time is entered above; I have spent that time in minutes in the direct care of this critically ill patient, excluding procedure time. ED Disposition Clinical Impression: Constipation, COPD exacerbation Disposition: TO HOME OR SELFCARE Is pt being admited?: No Does the pt Need Aspirin: No Condition: Stable Instructions: Chronic Obstructive Pulmonary Disease (ED), Constipation (ED), High Fiber Diet (ED) Prescriptions: Doxycycline Hyclate [Doxycycline Hyclate TAB] 100 mg PO Q12HR 7 Days #14 tab Polyethylene Glycol 3350 [Miralax 3350] 17 gm PO BID 7 Days #14 packet predniSONE [Deltasone] 3 tab PO QDAY 5 Days #15 tab Referrals: COLLINS CR MD [Primary Care Provider] - 3-5 Days Forms: Work/School Release Form(ED) Time of Disposition: 18:02
[2017-07-27] MEDS ORDERED: VIBRAMYCIN PO ONE (16:30)
[2017-07-27 16:58] LABS: Basophils % (Auto) 0.4 % (0.0-1.8); Eosinophils # (Auto) 0.1 K/mm3 (0.0-0.4); Eosinophils % (Auto) 2.3 % (0.0-4.3); Hematocrit 39.9 % (30.3-42.9); Hemoglobin 12.7 gm/dl (10.1-14.3); Lymphocytes # (Auto) 2.2 K/mm3 (1.2-5.4); Lymphocytes % (Auto) 36.8 % (13.4-35.0); Mean Corpuscular HGB Conc 32 % (30-34); Mean Corpuscular Hemoglobin 28 pg (28-32); Mean Corpuscular Volume 87 fl (79-97); Monocytes # (Auto) 0.8 K/mm3 (0.0-0.8); Monocytes % (Auto) 13.7 % (0.0-7.3); Platelet Count 285 K/mm3 (140-440); Red Blood Count 4.61 M/mm3 (3.65-5.03); Red Cell Distribution Width 15.4 % (13.2-15.2)
[2017-07-27 17:01] LABS: Alanine Aminotransferase 10 units/L (7-56); Albumin 3.9 g/dL (3.9-5); BUN/Creatinine Ratio 12; Blood Urea Nitrogen 11 mg/dL (7-17); Calcium 8.6 mg/dL (8.4-10.2); Hemolysis Index 66; Lipase 25 units/L (13-60)
--- NOTE | 2017-07-27 17:47 | XRay Report ---
FINAL REPORT EXAM: XR CHEST 1V AP HISTORY: Dyspnea TECHNIQUE: Frontal chest x-ray Comparison: 07/13/2017, 05/22/2016 FINDINGS: Heart size is upper limits normal. There is mild cephalization of the vasculature versus upper lobe nodularity. Previous CT chest 02/15/2017 demonstrated 2 pulmonary nodules on the right. IMPRESSION: Heart size upper limits normal. Mild cephalization of the vasculature versus nodularity of the upper lobes. Larger patient body habitus. Recommend follow-up two view chest. No focal consolidation.
[2017-07-27 17:57] VITALS: BP 139/81
== END 2017-07-27 18:25 | disposition home or self-care (01) ==
LOC: ED 15:05
DX: J44.1 Chronic obstructive pulmonary disease with (acute) exacerbation (principal); K59.00 Constipation, unspecified; I10 Essential (primary) hypertension; I25.2 Old myocardial infarction; K21.9 Gastro-esophageal reflux disease without esophagitis; I25.10 Atherosclerotic heart disease of native coronary artery without angina pectoris; E05.90 Thyrotoxicosis, unspecified without thyrotoxic crisis or storm; F17.200 Nicotine dependence, unspecified, uncomplicated; Z95.818 Presence of other cardiac implants and grafts; Z90.49 Acquired absence of other specified parts of digestive tract; Z90.89 Acquired absence of other organs; Z98.51 Tubal ligation status; Z87.11 Personal history of peptic ulcer disease
CPT/HCPCS: 36415; 71045; 80053; 83690; 83735; 85025; 93005; 93010; 94644; 96374; 99285; J2405; J7512

== ENCOUNTER 2017-08-03 20:25 | Emergency (ER) | payer MEDICARE ==
[2017-08-03 20:34] VITALS: BP 156/97
== END 2017-08-03 23:28 | disposition left against medical advice (07) ==
LOC: ED 20:25
DX: T30.0 Burn of unspecified body region, unspecified degree (principal); Z53.21 Procedure and treatment not carried out due to patient leaving prior to being seen by health care provider; X08.8XXA Exposure to other specified smoke, fire and flames, initial encounter; Y93.89 Activity, other specified; Y99.8 Other external cause status; Y92.89 Other specified places as the place of occurrence of the external cause

== ENCOUNTER 2017-08-31 18:40 | Emergency (ER) | payer MEDICARE ==
[2017-08-31 19:47] LABS: Basophils % (Auto) 0.6 % (0.0-1.8); Eosinophils # (Auto) 0.1 K/mm3 (0.0-0.4); Eosinophils % (Auto) 1.3 % (0.0-4.3); Hematocrit 36.1 % (30.3-42.9); Hemoglobin 11.9 gm/dl (10.1-14.3); Lymphocytes # (Auto) 2.8 K/mm3 (1.2-5.4); Lymphocytes % (Auto) 37.1 % (13.4-35.0); Mean Corpuscular HGB Conc 33 % (30-34); Mean Corpuscular Hemoglobin 28 pg (28-32); Mean Corpuscular Volume 84 fl (79-97); Monocytes # (Auto) 0.8 K/mm3 (0.0-0.8); Platelet Count 256 K/mm3 (140-440); Red Blood Count 4.29 M/mm3 (3.65-5.03); Red Cell Distribution Width 14.6 % (13.2-15.2)
[2017-08-31 19:54] LABS: Bacteria,Urine 1+ /HPF (Negative); Bilirubin,Urine NEG (Negative); Blood,Urine SM (Negative); Color,Urine Yellow (Yellow); Hyaline Casts,Urine 5 /LPF; Mucus,Urine 3+ /HPF
[2017-08-31 19:57] LABS: Calcium 9.2 mg/dL (8.4-10.2)
--- NOTE | 2017-09-01 00:09 | Emergency Department Report ---
ED Female HPI - General Chief complaint: Abdominal Pain Stated complaint: VAGINAL DISCHARGE Time Seen by Provider: 09/01/17 00:08 Source: patient Mode of arrival: Ambulatory Limitations: No Limitations - History of Present Illness MD Complaint: vaginal discharge -: Gradual Location: perineum Radiation: non-radiating Severity: mild Severity scale (0 -10): 3 Quality: cramping Consistency: intermittent Improves with: none Worsens with: none Are you Now?: No Associated Symptoms: vaginal discharge, abdominal pain - Related Data Sexually active: Yes Home Medications Medication Instructions Recorded Confirmed Last Taken Cyanocobalamin [Vitamin B-12] 1,000 mcg PO DAILY 12/17/16 03/22/17 1 Day Ago ~03/21/17 Naltrexone (Nf) [Revia (Nf)] 50 mg PO QAM 12/17/16 03/22/17 1 Day Ago ~03/21/17 Quetiapine Fumarate [QUEtiapine 400 mg PO HS 12/17/16 03/22/17 1 Day Ago Fumarate] ~03/21/17 buPROPion XL [Wellbutrin XL] 150 mg PO QAM 12/17/16 03/22/17 1 Day Ago ~03/21/17 traZODone [Desyrel] 100 mg PO QDAY 12/17/16 03/22/17 1 Day Ago ~03/21/17 Albuterol Sulfate [Ventolin HFA] 1 puff PO PRN PRN 12/28/16 03/22/17 1 Day Ago ~03/21/17 AtorvaSTATin [Lipitor] 80 mg PO QDAY 12/28/16 03/22/17 1 Day Ago ~03/21/17 Carvedilol [Coreg] 25 mg PO QDAY 12/28/16 03/22/17 1 Day Ago ~03/21/17 Ferrous Sulfate [Feosol 325 MG tab] 0.5 tab PO QDAY 12/28/16 03/22/17 1 Day Ago ~03/21/17 Lisinopril [Zestril] 40 mg PO QDAY 12/28/16 03/22/17 1 Day Ago ~03/21/17 amLODIPine [Norvasc] 10 mg PO QDAY 12/28/16 03/22/17 1 Day Ago ~03/21/17 Previous Rx's Medication Instructions Recorded Last Taken Type Aspirin EC [Aspirin Enteric Coated 81 mg PO QDAY #30 tablet 12/20/16 1 Day Ago Rx TAB] ~03/21/17 Clopidogrel [Plavix] 75 mg PO QDAY #30 tablet 12/20/16 1 Day Ago Rx ~03/21/17 Gabapentin [Neurontin] 600 mg PO BID #60 tablet 12/20/16 1 Day Ago Rx ~03/21/17 Levothyroxine [Synthroid] 150 mcg PO QAM #30 tablet 12/20/16 1 Day Ago Rx ~03/21/17 HYDROcodone/APAP 7.5-325 [[place] 1 each PO Q4H PRN #12 tablet 03/23/17 Unknown Rx 7.5-325 mg TAB] ISOSORBIDE MONOnitrate [Imdur ER] 30 mg PO DAILY #30 tab.er.24h 03/23/17 Unknown Rx Pantoprazole [Protonix TAB] 40 mg PO QDAY #30 tablet 03/23/17 Unknown Rx hydrOXYzine PAMOATE [Vistaril] 25 mg PO QDAY #30 capsule 03/23/17 Unknown Rx Acetaminophen 1,000 mg PO QID PRN #60 tablet 03/31/17 Unknown Rx Diclofenac Sodium [Voltaren] 100 gm TP TID PRN #1 tube 03/31/17 Unknown Rx Dicyclomine [Bentyl] 20 mg PO QID #15 tablet 07/14/17 Unknown Rx Famotidine [Pepcid] 40 mg PO QHS #10 tablet 07/14/17 Unknown Rx Ondansetron [Zofran Odt] 4 mg PO Q8HR #10 tab.rapdis 07/14/17 Unknown Rx Doxycycline Hyclate [Doxycycline 100 mg PO Q12HR 7 Days #14 tab 07/27/17 Unknown Rx Hyclate TAB] Polyethylene Glycol 3350 [Miralax 17 gm PO BID 7 Days #14 packet 07/27/17 Unknown Rx 3350] predniSONE [Deltasone] 3 tab PO QDAY 5 Days #15 tab 07/27/17 Unknown Rx Ibuprofen [Motrin] 800 mg PO Q8HR PRN #20 tablet 09/01/17 Unknown Rx metroNIDAZOLE [Flagyl] 500 mg PO Q12HR #14 tab 09/01/17 Unknown Rx Allergies Allergy/AdvReac Type Severity Reaction Status Date / Time No Known Allergies Allergy Verified 12/17/16 11:28 ED Review of Systems ROS: Stated complaint: VAGINAL DISCHARGE Other details as noted in HPI Comment: All other systems reviewed and negative Constitutional: denies: chills, fever Eyes: denies: eye pain, vision change ENT: denies: ear pain, dental pain Respiratory: denies: cough, shortness of breath Cardiovascular: denies: chest pain, palpitations Endocrine: no symptoms reported Gastrointestinal: abdominal pain. denies: nausea, vomiting Genitourinary: discharge Musculoskeletal: denies: back pain, joint swelling Skin: denies: rash Neurological: numbness. denies: headache Psychiatric: denies: anxiety Hematological/Lymphatic: denies: easy bleeding, easy bruising ED Past Medical Hx - Past Medical History Hx Hypertension: Yes Hx Heart Attack/AMI: Yes Hx Diabetes: No Hx GERD: Yes Hx Asthma: Yes (chronic bronchitis) Hx COPD: Yes Hx HIV: No Additional medical history: CAD, hyperthyroid, carpal tunnel - Surgical History Hx Coronary Stent: Yes (4) Hx Cholecystectomy: Yes Additional Surgical History: neck fusion, right hand, back surgery, tonsillectomy, tubal ligation - Social History Smoking Status: Current Some Day Smoker Substance Use Type: None - Medications Home Medications: Home Medications Medication Instructions Recorded Confirmed Last Taken Type Cyanocobalamin [Vitamin B-12] 1,000 mcg PO DAILY 12/17/16 03/22/17 1 Day Ago History ~03/21/17 Naltrexone (Nf) [Revia (Nf)] 50 mg PO QAM 12/17/16 03/22/17 1 Day Ago History ~03/21/17 Quetiapine Fumarate [QUEtiapine 400 mg PO HS 12/17/16 03/22/17 1 Day Ago History Fumarate] ~03/21/17 buPROPion XL [Wellbutrin XL] 150 mg PO QAM 12/17/16 03/22/17 1 Day Ago History ~03/21/17 traZODone [Desyrel] 100 mg PO QDAY 12/17/16 03/22/17 1 Day Ago History ~03/21/17 Aspirin EC [Aspirin Enteric Coated 81 mg PO QDAY #30 tablet 12/20/16 03/22/17 1 Day Ago Rx TAB] ~03/21/17 Clopidogrel [Plavix] 75 mg PO QDAY #30 tablet 12/20/16 03/22/17 1 Day Ago Rx ~03/21/17 Gabapentin [Neurontin] 600 mg PO BID #60 tablet 12/20/16 03/22/17 1 Day Ago Rx ~03/21/17 Levothyroxine [Synthroid] 150 mcg PO QAM #30 tablet 12/20/16 03/22/17 1 Day Ago Rx ~03/21/17 Albuterol Sulfate [Ventolin HFA] 1 puff PO PRN PRN 12/28/16 03/22/17 1 Day Ago History ~03/21/17 AtorvaSTATin [Lipitor] 80 mg PO QDAY 12/28/16 03/22/17 1 Day Ago History ~03/21/17 Carvedilol [Coreg] 25 mg PO QDAY 12/28/16 03/22/17 1 Day Ago History ~03/21/17 Ferrous Sulfate [Feosol 325 MG tab] 0.5 tab PO QDAY 12/28/16 03/22/17 1 Day Ago History ~03/21/17 Lisinopril [Zestril] 40 mg PO QDAY 12/28/16 03/22/17 1 Day Ago History ~03/21/17 amLODIPine [Norvasc] 10 mg PO QDAY 12/28/16 03/22/17 1 Day Ago History ~03/21/17 HYDROcodone/APAP 7.5-325 [[place] 1 each PO Q4H PRN #12 tablet 03/23/17 Unknown Rx 7.5-325 mg TAB] ISOSORBIDE MONOnitrate [Imdur ER] 30 mg PO DAILY #30 tab.er.24h 03/23/17 Unknown Rx Pantoprazole [Protonix TAB] 40 mg PO QDAY #30 tablet 03/23/17 Unknown Rx hydrOXYzine PAMOATE [Vistaril] 25 mg PO QDAY #30 capsule 03/23/17 Unknown Rx Acetaminophen 1,000 mg PO QID PRN #60 tablet 03/31/17 Unknown Rx Diclofenac Sodium [Voltaren] 100 gm TP TID PRN #1 tube 03/31/17 Unknown Rx Dicyclomine [Bentyl] 20 mg PO QID #15 tablet 07/14/17 Unknown Rx Famotidine [Pepcid] 40 mg PO QHS #10 tablet 07/14/17 Unknown Rx Ondansetron [Zofran Odt] 4 mg PO Q8HR #10 tab.rapdis 07/14/17 Unknown Rx Doxycycline Hyclate [Doxycycline 100 mg PO Q12HR 7 Days #14 tab 07/27/17 Unknown Rx Hyclate TAB] Polyethylene Glycol 3350 [Miralax 17 gm PO BID 7 Days #14 packet 07/27/17 Unknown Rx 3350] predniSONE [Deltasone] 3 tab PO QDAY 5 Days #15 tab 07/27/17 Unknown Rx Ibuprofen [Motrin] 800 mg PO Q8HR PRN #20 tablet 09/01/17 Unknown Rx metroNIDAZOLE [Flagyl] 500 mg PO Q12HR #14 tab 09/01/17 Unknown Rx ED Physical Exam - General Limitations: No Limitations General appearance: alert, in no apparent distress - Head Head exam: Present: atraumatic, normocephalic, normal inspection - Eye Eye exam: Present: normal appearance, PERRL, EOMI Pupils: Present: normal accommodation - ENT ENT exam: Present: normal exam, normal orophraynx, mucous membranes moist - Neck Neck exam: Present: normal inspection, tenderness, full ROM - Respiratory Respiratory exam: Present: normal lung sounds bilaterally. Absent: wheezes, rhonchi - Cardiovascular Cardiovascular Exam: Present: regular rate, normal rhythm, normal heart sounds - GI/Abdominal GI/Abdominal exam: Present: soft, normal bowel sounds. Absent: distended, tenderness, guarding, rebound - Rectal Rectal exam: Present: deferred - External exam: Present: normal external exam Speculum exam: Present: vaginal discharge, other (Female charperone Ms. Vy RN.) Bi-manual exam: Present: other (Deferred) - Extremities Exam Extremities exam: Present: normal inspection, full ROM, normal capillary refill - Back Exam Back exam: Present: normal inspection, full ROM - Neurological Exam Neurological exam: Present: alert, oriented X3, CN II-XII intact - Psychiatric Psychiatric exam: Present: normal affect, normal mood. Absent: anxious - Skin Skin exam: Present: warm, dry, intact, normal color. Absent: rash ED Course Vital Signs 08/31/17 08/31/17 09/01/17 18:52 23:57 00:00 Temperature 98.7 F 98.3 F Pulse Rate 87 68 Respiratory 18 18 Rate Blood Pressure 115/73 Blood Pressure 152/88 [Left] O2 Sat by Pulse 97 100 99 Oximetry 05/31/18 05/31/18 05/31/18 00:21 00:41 01:00 Temperature Pulse Rate Respiratory Rate Blood Pressure 152/88 152/92 152/92 Blood Pressure [Left] O2 Sat by Pulse 100 98 99 Oximetry 09/01/17 09/01/17 01:21 02:01 Temperature Pulse Rate Respiratory Rate Blood Pressure 152/92 171/90 Blood Pressure [Left] O2 Sat by Pulse 99 99 Oximetry ED Medical Decision Making - Lab Data Result diagrams: 08/31/17 19:31 08/31/17 19:31 - Radiology Data Radiology results: report reviewed, image reviewed - Medical Decision Making Vaginal Discharge Critical care attestation.: If time is entered above; I have spent that time in minutes in the direct care of this critically ill patient, excluding procedure time. ED Disposition Clinical Impression: Bacterial vaginosis Abdominal pain Qualifiers: Abdominal location: generalized Qualified Code(s): R10.84 - Generalized abdominal pain Disposition: - TO HOME OR SELFCARE Is pt being admited?: No Does the pt Need Aspirin: No Condition: Stable Instructions: Abdominal Pain (ED), Bacterial Vaginosis (ED) Additional Instructions: Follow up with your regular doctor within 24 hours. Return to the ED if your condition worsens. Prescriptions: Ibuprofen [Motrin] 800 mg PO Q8HR PRN #20 tablet PRN Reason: Pain metroNIDAZOLE [Flagyl] 500 mg PO Q12HR #14 tab Referrals: COLLINS CR MD [Primary Care Provider] - 3-5 Days Forms: STI Treatment and Prevention Time of Disposition: 03:52
[2017-09-01 03:01] LABS: Alanine Aminotransferase 9 units/L (7-56); Albumin 3.7 g/dL (3.9-5)
[2017-09-01 03:13] LABS: Bilirubin,Direct < 0.2 mg/dL (0-0.2)
[2017-09-01] MEDS ORDERED: DILAUDID IV ONE (03:27)
[2017-09-01] MEDS ORDERED: REGLAN IV ONE (03:29)
[2017-09-01] MEDS ORDERED: FLAGYL PO ONE (03:52)
[2017-09-01] MEDS ORDERED: XYLOCAINE 1% MPF 5 mL INFILTRATI ONE (03:52)
[2017-09-01] MEDS ORDERED: ROCEPHIN IM ONE (03:52)
[2017-09-01] MEDS ORDERED: ZITHROMAX PO ONE (03:53)
[2017-09-01 04:10] VITALS: BP 150/94
--- NOTE | 2017-09-05 14:16 | Cat Scan Report ---
FINAL REPORT PROCEDURE: CT ABDOMEN PELVIS W CON TECHNIQUE: Computerized axial tomography of the abdomen and pelvis was performed after the IV injection of iodinated nonionic contrast. HISTORY: abdominal pain COMPARISON: 07/14/2017 FINDINGS: Visualized lower thorax: No significant abnormality. Liver: Liver is enlarged and fatty. There is no mass.. Spleen: Normal size and attenuation. Gallbladder and biliary system: There has been a cholecystectomy. The bile ducts are normal in caliber.. Pancreas: Normal. Adrenals: Normal. Kidneys: There are small kidney cysts. There are no stones. There is no hydronephrosis.. GI tract: There is no bowel obstruction, colitis or enteritis. The appendix is normal.. Lymph nodes and mesentery: Normal. Vasculature: Normal. Bladder: Normal. Reproductive organs: Uterus is intact. Ovaries are unremarkable.. Peritoneum: There is no ascites or free air, abscess or adenopathy.. Musculoskeletal structures: No significant abnormality. Other: None. IMPRESSION: Liver is enlarged and fatty. There is no mass.. There has been a cholecystectomy. The bile ducts are normal in caliber.. There are small kidney cysts. There are no stones. There is no hydronephrosis.. There is no bowel obstruction, colitis or enteritis. The appendix is normal.. Uterus is intact. Ovaries are unremarkable.. There is no ascites or free air, abscess or adenopathy..
== END 2017-09-01 04:10 | disposition home or self-care (01) ==
LOC: ED 18:40
DX: N76.0 Acute vaginitis (principal); I10 Essential (primary) hypertension; I25.2 Old myocardial infarction; K21.9 Gastro-esophageal reflux disease without esophagitis; J44.9 Chronic obstructive pulmonary disease, unspecified; Z90.49 Acquired absence of other specified parts of digestive tract; Z98.51 Tubal ligation status; F17.200 Nicotine dependence, unspecified, uncomplicated
CPT/HCPCS: 36415; 74177; 80048; 80074; 81001; 83690; 85025; 87210; 87591; 96372; 96374; 96375; 99284; J0696; J1170; J2765; Q9967

== ENCOUNTER 2017-10-09 11:02 | Emergency (ER) | payer MEDICARE ==
[2017-10-09 11:07] VITALS: BP 175/93
--- NOTE | 2017-10-09 11:40 | Emergency Department Report ---
ED General Adult HPI - General Chief complaint: Back Pain/Injury Stated complaint: LOWER BACK PAIN Time Seen by Provider: 10/09/17 11:19 Source: patient, EMS Mode of arrival: Ambulatory Limitations: No Limitations - History of Present Illness Initial comments: 57-year-old patient chronic low back pain currently in the care of neurosurgery at [place] had a recent MRI, reinjured it is here stating worsening right- sided lumbar pain with some question of radiation to the right leg, she did deny bladder or bowel problems no sacral anesthesia, she is still a complaints she's a blood pressure pills once a refill on that #1 #2 she also is having a little bit of a stool, no black or bloody stool no nausea vomiting or fever no abdominal pain she thinks she may have got something from her grandkids, no recent travel no other complaints no chest pain or shortness of breath no focal neuro complaints no visual or speech complaints -: Gradual, days(s) Radiation: extremity Severity scale (0 -10): 3 Quality: burning Consistency: intermittent - Related Data Home Medications Medication Instructions Recorded Confirmed Last Taken Cyanocobalamin [Vitamin B-12] 1,000 mcg PO DAILY 12/17/16 03/22/17 1 Day Ago ~03/21/17 Naltrexone (Nf) [Revia (Nf)] 50 mg PO QAM 12/17/16 03/22/17 1 Day Ago ~03/21/17 Quetiapine Fumarate [QUEtiapine 400 mg PO HS 12/17/16 03/22/17 1 Day Ago Fumarate] ~03/21/17 buPROPion XL [Wellbutrin XL] 150 mg PO QAM 12/17/16 03/22/17 1 Day Ago ~03/21/17 traZODone [Desyrel] 100 mg PO QDAY 12/17/16 03/22/17 1 Day Ago ~03/21/17 Albuterol Sulfate [Ventolin HFA] 1 puff PO PRN PRN 12/28/16 03/22/17 1 Day Ago ~03/21/17 AtorvaSTATin [Lipitor] 80 mg PO QDAY 12/28/16 03/22/17 1 Day Ago ~03/21/17 Ferrous Sulfate [Feosol 325 MG tab] 0.5 tab PO QDAY 12/28/16 03/22/17 1 Day Ago ~03/21/17 Previous Rx's Medication Instructions Recorded Last Taken Type Aspirin EC [Aspirin Enteric Coated 81 mg PO QDAY #30 tablet 12/20/16 1 Day Ago Rx TAB] ~03/21/17 Clopidogrel [Plavix] 75 mg PO QDAY #30 tablet 12/20/16 1 Day Ago Rx ~03/21/17 Gabapentin [Neurontin] 600 mg PO BID #60 tablet 12/20/16 1 Day Ago Rx ~03/21/17 Levothyroxine [Synthroid] 150 mcg PO QAM #30 tablet 12/20/16 1 Day Ago Rx ~03/21/17 HYDROcodone/APAP 7.5-325 [[place] 1 each PO Q4H PRN #12 tablet 03/23/17 Unknown Rx 7.5-325 mg TAB] ISOSORBIDE MONOnitrate [Imdur ER] 30 mg PO DAILY #30 tab.er.24h 03/23/17 Unknown Rx Pantoprazole [Protonix TAB] 40 mg PO QDAY #30 tablet 03/23/17 Unknown Rx hydrOXYzine PAMOATE [Vistaril] 25 mg PO QDAY #30 capsule 03/23/17 Unknown Rx Acetaminophen 1,000 mg PO QID PRN #60 tablet 03/31/17 Unknown Rx Diclofenac Sodium [Voltaren] 100 gm TP TID PRN #1 tube 03/31/17 Unknown Rx Dicyclomine [Bentyl] 20 mg PO QID #15 tablet 07/14/17 Unknown Rx Famotidine [Pepcid] 40 mg PO QHS #10 tablet 07/14/17 Unknown Rx Ondansetron [Zofran Odt] 4 mg PO Q8HR #10 tab.rapdis 07/14/17 Unknown Rx Doxycycline Hyclate [Doxycycline 100 mg PO Q12HR 7 Days #14 tab 07/27/17 Unknown Rx Hyclate TAB] Polyethylene Glycol 3350 [Miralax 17 gm PO BID 7 Days #14 packet 07/27/17 Unknown Rx 3350] Ibuprofen [Motrin] 800 mg PO Q8HR PRN #20 tablet 09/01/17 Unknown Rx metroNIDAZOLE [Flagyl] 500 mg PO Q12HR #14 tab 09/01/17 Unknown Rx Acetaminophen/Codeine [Tylenol 1 tab PO Q6H PRN #10 tab 10/09/17 Unknown Rx /Codeine # 3 tab] Carvedilol [Coreg] 25 mg PO QDAY #15 tablet 10/09/17 Unknown Rx Lisinopril [Zestril] 40 mg PO QDAY #15 tablet 10/09/17 Unknown Rx amLODIPine [Norvasc] 10 mg PO QDAY #15 tablet 10/09/17 Unknown Rx predniSONE [Deltasone] 3 tab PO QDAY 5 Days #15 tab 10/09/17 Unknown Rx Allergies Allergy/AdvReac Type Severity Reaction Status Date / Time No Known Allergies Allergy Verified 10/09/17 11:04 ED Review of Systems ROS: Stated complaint: LOWER BACK PAIN Other details as noted in HPI Comment: All other systems reviewed and negative Constitutional: denies: diaphoresis, fever, malaise ENT: denies: ear pain, throat pain Respiratory: denies: cough, orthopnea Cardiovascular: denies: chest pain, palpitations, dyspnea on exertion, orthopnea , edema, syncope, paroxysmal nocturnal dyspnea Gastrointestinal: diarrhea. denies: abdominal pain, nausea, vomiting, constipation, hematemesis, melena, hematochezia Skin: denies: rash, lesions Neurological: denies: headache, weakness, abnormal gait, vertigo ED Past Medical Hx - Past Medical History Hx Hypertension: Yes Hx Heart Attack/AMI: Yes Hx Diabetes: No Hx GERD: Yes Hx Asthma: Yes (chronic bronchitis) Hx COPD: Yes Hx HIV: No Additional medical history: CAD, hyperthyroid, carpal tunnel - Surgical History Hx Coronary Stent: Yes (4) Hx Cholecystectomy: Yes Additional Surgical History: neck fusion, right hand, back surgery, tonsillectomy, tubal ligation - Social History Smoking Status: Current Every Day Smoker Substance Use Type: None - Medications Home Medications: Home Medications Medication Instructions Recorded Confirmed Last Taken Type Cyanocobalamin [Vitamin B-12] 1,000 mcg PO DAILY 12/17/16 03/22/17 1 Day Ago History ~03/21/17 Naltrexone (Nf) [Revia (Nf)] 50 mg PO QAM 12/17/16 03/22/17 1 Day Ago History ~03/21/17 Quetiapine Fumarate [QUEtiapine 400 mg PO HS 12/17/16 03/22/17 1 Day Ago History Fumarate] ~03/21/17 buPROPion XL [Wellbutrin XL] 150 mg PO QAM 12/17/16 03/22/17 1 Day Ago History ~03/21/17 traZODone [Desyrel] 100 mg PO QDAY 12/17/16 03/22/17 1 Day Ago History ~03/21/17 Aspirin EC [Aspirin Enteric Coated 81 mg PO QDAY #30 tablet 12/20/16 03/22/17 1 Day Ago Rx TAB] ~03/21/17 Clopidogrel [Plavix] 75 mg PO QDAY #30 tablet 12/20/16 03/22/17 1 Day Ago Rx ~03/21/17 Gabapentin [Neurontin] 600 mg PO BID #60 tablet 12/20/16 03/22/17 1 Day Ago Rx ~03/21/17 Levothyroxine [Synthroid] 150 mcg PO QAM #30 tablet 12/20/16 03/22/17 1 Day Ago Rx ~03/21/17 Albuterol Sulfate [Ventolin HFA] 1 puff PO PRN PRN 12/28/16 03/22/17 1 Day Ago History ~03/21/17 AtorvaSTATin [Lipitor] 80 mg PO QDAY 12/28/16 03/22/17 1 Day Ago History ~03/21/17 Ferrous Sulfate [Feosol 325 MG tab] 0.5 tab PO QDAY 12/28/16 03/22/17 1 Day Ago History ~03/21/17 HYDROcodone/APAP 7.5-325 [[place] 1 each PO Q4H PRN #12 tablet 03/23/17 Unknown Rx 7.5-325 mg TAB] ISOSORBIDE MONOnitrate [Imdur ER] 30 mg PO DAILY #30 tab.er.24h 03/23/17 Unknown Rx Pantoprazole [Protonix TAB] 40 mg PO QDAY #30 tablet 03/23/17 Unknown Rx hydrOXYzine PAMOATE [Vistaril] 25 mg PO QDAY #30 capsule 03/23/17 Unknown Rx Acetaminophen 1,000 mg PO QID PRN #60 tablet 03/31/17 Unknown Rx Diclofenac Sodium [Voltaren] 100 gm TP TID PRN #1 tube 03/31/17 Unknown Rx Dicyclomine [Bentyl] 20 mg PO QID #15 tablet 07/14/17 Unknown Rx Famotidine [Pepcid] 40 mg PO QHS #10 tablet 07/14/17 Unknown Rx Ondansetron [Zofran Odt] 4 mg PO Q8HR #10 tab.rapdis 07/14/17 Unknown Rx Doxycycline Hyclate [Doxycycline 100 mg PO Q12HR 7 Days #14 tab 07/27/17 Unknown Rx Hyclate TAB] Polyethylene Glycol 3350 [Miralax 17 gm PO BID 7 Days #14 packet 07/27/17 Unknown Rx 3350] Ibuprofen [Motrin] 800 mg PO Q8HR PRN #20 tablet 09/01/17 Unknown Rx metroNIDAZOLE [Flagyl] 500 mg PO Q12HR #14 tab 09/01/17 Unknown Rx Acetaminophen/Codeine [Tylenol 1 tab PO Q6H PRN #10 tab 10/09/17 Unknown Rx /Codeine # 3 tab] Carvedilol [Coreg] 25 mg PO QDAY #15 tablet 10/09/17 Unknown Rx Lisinopril [Zestril] 40 mg PO QDAY #15 tablet 10/09/17 Unknown Rx amLODIPine [Norvasc] 10 mg PO QDAY #15 tablet 10/09/17 Unknown Rx predniSONE [Deltasone] 3 tab PO QDAY 5 Days #15 tab 10/09/17 Unknown Rx ED Physical Exam - General Limitations: No Limitations General appearance: alert - Head Head exam: Present: atraumatic, normocephalic - Eye Eye exam: Present: PERRL, EOMI - ENT ENT exam: Present: normal exam, normal orophraynx - Neck Neck exam: Present: normal inspection. Absent: tenderness, meningismus - Respiratory Respiratory exam: Present: normal lung sounds bilaterally. Absent: respiratory distress, wheezes, rales, rhonchi, stridor - Cardiovascular Cardiovascular Exam: Present: regular rate, normal rhythm - GI/Abdominal GI/Abdominal exam: Present: soft. Absent: distended, tenderness, guarding, rebound, rigid, mass, pulsatile mass - Extremities Exam Extremities exam: Present: normal inspection, full ROM, normal capillary refill. Absent: tenderness, pedal edema, joint swelling, calf tenderness - Back Exam Back exam: Present: normal inspection, muscle spasm, paraspinal tenderness, other (no warmth or erythema). Absent: vertebral tenderness - Neurological Exam Neurological exam: Present: alert, oriented X3, CN II-XII intact, other (pulses equal bilaterally). 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 Blood pressure medicine and given a work release and gives acute pain control for her chronic underlying back pain with acute exacerbation she is stable for outpatient follow-up, no ssx that would suggestive spinal cord compressive syndrome or other emeergency at this time, no sacral numbness or weakness noted, no bladder or blowel dysfunciotn Critical care attestation.: If time is entered above; I have spent that time in minutes in the direct care of this critically ill patient, excluding procedure time. ED Disposition Clinical Impression: Hypertension, Back pain, Noncompliance Disposition: TO HOME OR SELFCARE Is pt being admited?: No Condition: Stable Instructions: Acute Low Back Pain (ED), Hypertension (ED), Back Pain (ED) Additional Instructions: Take her medicines return if new alarming symptoms such as worse pain or other problems including shortness of breath chest pain, see the doctor listed her regular doctor Prescriptions: Acetaminophen/Codeine [Tylenol /Codeine # 3 tab] 1 tab PO Q6H PRN #10 tab PRN Reason: Pain, Moderate (4-6) amLODIPine [Norvasc] 10 mg PO QDAY #15 tablet Carvedilol [Coreg] 25 mg PO QDAY #15 tablet Lisinopril [Zestril] 40 mg PO QDAY #15 tablet predniSONE [Deltasone] 3 tab PO QDAY 5 Days #15 tab Referrals: PRIMARY CAREMD [Primary Care Provider] - 3-5 Days AIMEE BRAVO MD [Staff Physician] - 3-5 Days Time of Disposition: 11:57
== END 2017-10-09 12:09 | disposition home or self-care (01) ==
LOC: ED 11:02
DX: M54.5 Low back pain (principal); I10 Essential (primary) hypertension; I25.2 Old myocardial infarction; K21.9 Gastro-esophageal reflux disease without esophagitis; J44.9 Chronic obstructive pulmonary disease, unspecified; I25.10 Atherosclerotic heart disease of native coronary artery without angina pectoris; F17.200 Nicotine dependence, unspecified, uncomplicated; Z91.19 Patient's noncompliance with other medical treatment and regimen; Z90.49 Acquired absence of other specified parts of digestive tract; Z95.1 Presence of aortocoronary bypass graft
CPT/HCPCS: 99283

== ENCOUNTER 2017-11-21 18:57 | Emergency (ER) | payer MEDICARE ==
[2017-11-21] MEDS ORDERED: ASPIRIN PO ONE (19:24)
[2017-11-21 19:49] LABS: Basophils % (Auto) 0.9 % (0.0-1.8); Eosinophils # (Auto) 0.1 K/mm3 (0.0-0.4); Eosinophils % (Auto) 2.5 % (0.0-4.3); Hematocrit 36.9 % (30.3-42.9); Hemoglobin 12.1 gm/dl (10.1-14.3); Lymphocytes # (Auto) 1.9 K/mm3 (1.2-5.4); Lymphocytes % (Auto) 32.4 % (13.4-35.0); Mean Corpuscular HGB Conc 33 % (30-34); Mean Corpuscular Hemoglobin 29 pg (28-32); Mean Corpuscular Volume 88 fl (79-97); Monocytes # (Auto) 0.5 K/mm3 (0.0-0.8); Monocytes % (Auto) 9.4 % (0.0-7.3); Platelet Count 292 K/mm3 (140-440); Red Blood Count 4.18 M/mm3 (3.65-5.03); Red Cell Distribution Width 14.9 % (13.2-15.2)
[2017-11-21 20:05] LABS: BUN/Creatinine Ratio 15; Blood Urea Nitrogen 12 mg/dL (7-17); Hemolysis Index 11
[2017-11-22] MEDS ORDERED: DUONEB *Not for PRN Use IH ONE (01:33)
[2017-11-22] MEDS ORDERED: SOLU-Medrol IM ONE (01:33)
--- NOTE | 2017-11-22 01:37 | Emergency Department Report ---
ED Shortness of Breath HPI - General Chief Complaint: Chest Pain Stated Complaint: CHEST PAIN/LT LEG SWOLLEN Time Seen by Provider: 11/22/17 01:28 Source: patient Mode of arrival: Ambulatory Limitations: No Limitations - History of Present Illness Initial Comments: Patient is 57 years old female history of congestive heart failure, COPD and coronary artery disease. Patient presented to the ER complaining of a three- day history of shortness of breath and tightness in her chest and wheezing. Patient stated that she's been taking her albuterol breathing treatment that no great help. Patient also stated that she's been having cough with greenish sputum. She denied any nausea or vomiting. She also c/o of lower extremity swelling. MD Complaint: shortness of breath, cough - Related Data Home Medications Medication Instructions Recorded Confirmed Last Taken Cyanocobalamin [Vitamin B-12] 1,000 mcg PO DAILY 12/17/16 03/22/17 1 Day Ago ~03/21/17 Naltrexone (Nf) [Revia (Nf)] 50 mg PO QAM 12/17/16 03/22/17 1 Day Ago ~03/21/17 Quetiapine Fumarate [QUEtiapine 400 mg PO HS 12/17/16 03/22/17 1 Day Ago Fumarate] ~03/21/17 buPROPion XL [Wellbutrin XL] 150 mg PO QAM 12/17/16 03/22/17 1 Day Ago ~03/21/17 traZODone [Desyrel] 100 mg PO QDAY 12/17/16 03/22/17 1 Day Ago ~03/21/17 Albuterol Sulfate [Ventolin HFA] 1 puff PO PRN PRN 12/28/16 03/22/17 1 Day Ago ~03/21/17 AtorvaSTATin [Lipitor] 80 mg PO QDAY 12/28/16 03/22/17 1 Day Ago ~03/21/17 Ferrous Sulfate [Feosol 325 MG tab] 0.5 tab PO QDAY 12/28/16 03/22/17 1 Day Ago ~03/21/17 Previous Rx's Medication Instructions Recorded Last Taken Type Aspirin EC [Aspirin Enteric Coated 81 mg PO QDAY #30 tablet 12/20/16 1 Day Ago Rx TAB] ~03/21/17 Clopidogrel [Plavix] 75 mg PO QDAY #30 tablet 12/20/16 1 Day Ago Rx ~03/21/17 Gabapentin [Neurontin] 600 mg PO BID #60 tablet 12/20/16 1 Day Ago Rx ~03/21/17 Levothyroxine [Synthroid] 150 mcg PO QAM #30 tablet 12/20/16 1 Day Ago Rx ~03/21/17 HYDROcodone/APAP 7.5-325 [[place] 1 each PO Q4H PRN #12 tablet 03/23/17 Unknown Rx 7.5-325 mg TAB] ISOSORBIDE MONOnitrate [Imdur ER] 30 mg PO DAILY #30 tab.er.24h 03/23/17 Unknown Rx Pantoprazole [Protonix TAB] 40 mg PO QDAY #30 tablet 03/23/17 Unknown Rx hydrOXYzine PAMOATE [Vistaril] 25 mg PO QDAY #30 capsule 03/23/17 Unknown Rx Acetaminophen 1,000 mg PO QID PRN #60 tablet 03/31/17 Unknown Rx Diclofenac Sodium [Voltaren] 100 gm TP TID PRN #1 tube 03/31/17 Unknown Rx Dicyclomine [Bentyl] 20 mg PO QID #15 tablet 07/14/17 Unknown Rx Famotidine [Pepcid] 40 mg PO QHS #10 tablet 07/14/17 Unknown Rx Ondansetron [Zofran Odt] 4 mg PO Q8HR #10 tab.rapdis 07/14/17 Unknown Rx Doxycycline Hyclate [Doxycycline 100 mg PO Q12HR 7 Days #14 tab 07/27/17 Unknown Rx Hyclate TAB] Polyethylene Glycol 3350 [Miralax 17 gm PO BID 7 Days #14 packet 07/27/17 Unknown Rx 3350] Ibuprofen [Motrin] 800 mg PO Q8HR PRN #20 tablet 09/01/17 Unknown Rx metroNIDAZOLE [Flagyl] 500 mg PO Q12HR #14 tab 09/01/17 Unknown Rx Acetaminophen/Codeine [Tylenol 1 tab PO Q6H PRN #10 tab 10/09/17 Unknown Rx /Codeine # 3 tab] Carvedilol [Coreg] 25 mg PO QDAY #15 tablet 10/09/17 Unknown Rx Lisinopril [Zestril] 40 mg PO QDAY #15 tablet 10/09/17 Unknown Rx amLODIPine [Norvasc] 10 mg PO QDAY #15 tablet 10/09/17 Unknown Rx predniSONE [Deltasone] 3 tab PO QDAY 5 Days #15 tab 10/09/17 Unknown Rx Allergies Allergy/AdvReac Type Severity Reaction Status Date / Time No Known Allergies Allergy Verified 10/09/17 11:04 ED Review of Systems ROS: Stated complaint: CHEST PAIN/LT LEG SWOLLEN Other details as noted in HPI Comment: All other systems reviewed and negative Constitutional: chills, fever Respiratory: cough, shortness of breath, SOB with exertion, SOB at rest, wheezing Cardiovascular: chest pain Gastrointestinal: denies: abdominal pain, nausea, vomiting, diarrhea, constipation, hematemesis, melena, hematochezia Genitourinary: denies: urgency, dysuria, frequency, hematuria, abnormal menses Neurological: denies: headache, weakness, numbness, paresthesias, confusion ED Past Medical Hx - Past Medical History Hx Hypertension: Yes Hx Heart Attack/AMI: Yes Hx Congestive Heart Failure: Yes Hx Diabetes: No Hx GERD: Yes Hx Asthma: Yes (chronic bronchitis) Hx COPD: Yes Hx HIV: No Additional medical history: CAD, hyperthyroid, carpal tunnel, PUD - Surgical History Hx Coronary Stent: Yes (4) Hx Cholecystectomy: Yes Additional Surgical History: neck fusion, right hand, back surgery, tonsillectomy, tubal ligation - Social History Smoking Status: Current Every Day Smoker Substance Use Type: None - Medications Home Medications: Home Medications Medication Instructions Recorded Confirmed Last Taken Type Cyanocobalamin [Vitamin B-12] 1,000 mcg PO DAILY 12/17/16 03/22/17 1 Day Ago History ~03/21/17 Naltrexone (Nf) [Revia (Nf)] 50 mg PO QAM 12/17/16 03/22/17 1 Day Ago History ~03/21/17 Quetiapine Fumarate [QUEtiapine 400 mg PO HS 12/17/16 03/22/17 1 Day Ago History Fumarate] ~03/21/17 buPROPion XL [Wellbutrin XL] 150 mg PO QAM 12/17/16 03/22/17 1 Day Ago History ~03/21/17 traZODone [Desyrel] 100 mg PO QDAY 12/17/16 03/22/17 1 Day Ago History ~03/21/17 Aspirin EC [Aspirin Enteric Coated 81 mg PO QDAY #30 tablet 12/20/16 03/22/17 1 Day Ago Rx TAB] ~03/21/17 Clopidogrel [Plavix] 75 mg PO QDAY #30 tablet 12/20/16 03/22/17 1 Day Ago Rx ~03/21/17 Gabapentin [Neurontin] 600 mg PO BID #60 tablet 12/20/16 03/22/17 1 Day Ago Rx ~03/21/17 Levothyroxine [Synthroid] 150 mcg PO QAM #30 tablet 12/20/16 03/22/17 1 Day Ago Rx ~03/21/17 Albuterol Sulfate [Ventolin HFA] 1 puff PO PRN PRN 12/28/16 03/22/17 1 Day Ago History ~03/21/17 AtorvaSTATin [Lipitor] 80 mg PO QDAY 12/28/16 03/22/17 1 Day Ago History ~03/21/17 Ferrous Sulfate [Feosol 325 MG tab] 0.5 tab PO QDAY 12/28/16 03/22/17 1 Day Ago History ~03/21/17 HYDROcodone/APAP 7.5-325 [[place] 1 each PO Q4H PRN #12 tablet 03/23/17 Unknown Rx 7.5-325 mg TAB] ISOSORBIDE MONOnitrate [Imdur ER] 30 mg PO DAILY #30 tab.er.24h 03/23/17 Unknown Rx Pantoprazole [Protonix TAB] 40 mg PO QDAY #30 tablet 03/23/17 Unknown Rx hydrOXYzine PAMOATE [Vistaril] 25 mg PO QDAY #30 capsule 03/23/17 Unknown Rx Acetaminophen 1,000 mg PO QID PRN #60 tablet 03/31/17 Unknown Rx Diclofenac Sodium [Voltaren] 100 gm TP TID PRN #1 tube 03/31/17 Unknown Rx Dicyclomine [Bentyl] 20 mg PO QID #15 tablet 07/14/17 Unknown Rx Famotidine [Pepcid] 40 mg PO QHS #10 tablet 07/14/17 Unknown Rx Ondansetron [Zofran Odt] 4 mg PO Q8HR #10 tab.rapdis 07/14/17 Unknown Rx Doxycycline Hyclate [Doxycycline 100 mg PO Q12HR 7 Days #14 tab 07/27/17 Unknown Rx Hyclate TAB] Polyethylene Glycol 3350 [Miralax 17 gm PO BID 7 Days #14 packet 07/27/17 Unknown Rx 3350] Ibuprofen [Motrin] 800 mg PO Q8HR PRN #20 tablet 09/01/17 Unknown Rx metroNIDAZOLE [Flagyl] 500 mg PO Q12HR #14 tab 09/01/17 Unknown Rx Acetaminophen/Codeine [Tylenol 1 tab PO Q6H PRN #10 tab 10/09/17 Unknown Rx /Codeine # 3 tab] Carvedilol [Coreg] 25 mg PO QDAY #15 tablet 10/09/17 Unknown Rx Lisinopril [Zestril] 40 mg PO QDAY #15 tablet 10/09/17 Unknown Rx amLODIPine [Norvasc] 10 mg PO QDAY #15 tablet 10/09/17 Unknown Rx predniSONE [Deltasone] 3 tab PO QDAY 5 Days #15 tab 10/09/17 Unknown Rx ED Physical Exam - General Limitations: No Limitations General appearance: alert, in no apparent distress - Head Head exam: Present: atraumatic, normocephalic, normal inspection - Eye Eye exam: Present: normal appearance, PERRL - ENT ENT exam: Present: normal exam, normal orophraynx, mucous membranes moist - Neck Neck exam: Present: normal inspection, full ROM. Absent: tenderness, meningismus, lymphadenopathy, thyromegaly - Respiratory Respiratory exam: Present: wheezes. Absent: respiratory distress, rales, rhonchi, stridor, accessory muscle use, decreased breath sounds, prolonged expiratory - Cardiovascular Cardiovascular Exam: Present: regular rate, normal rhythm, normal heart sounds - GI/Abdominal GI/Abdominal exam: Present: soft, normal bowel sounds. Absent: distended, tenderness, guarding, rebound, rigid, organomegaly, mass, bruit, pulsatile mass , hernia - Extremities Exam Extremities exam: Present: normal inspection, full ROM, normal capillary refill. Absent: pedal edema, calf tenderness - Back Exam Back exam: Present: normal inspection, full ROM. Absent: tenderness, CVA tenderness (R), CVA tenderness (L), muscle spasm, paraspinal tenderness, vertebral tenderness, rash noted - Neurological Exam Neurological exam: Present: alert, oriented X3, CN II-XII intact, normal gait, reflexes normal - Skin Skin exam: Present: warm, intact, normal color ED Course Vital Signs 11/21/17 11/21/17 11/22/17 19:12 19:19 02:40 Temperature 99.0 F 99 F Pulse Rate 79 75 Pulse Rate [ 68 Anterior Bilateral Upper Lobe] Respiratory 18 18 Rate Respiratory 20 Rate [Anterior Bilateral Upper Lobe] Blood Pressure 149/90 149/90 O2 Sat by Pulse 98 98 Oximetry ED Medical Decision Making - Lab Data Result diagrams: 11/21/17 19:29 11/21/17 19:29 - EKG Data -: EKG Interpreted by Me EKG shows normal: sinus rhythm Rate: normal - Radiology Data Radiology results: report reviewed Referring Physician: CONY CARVAJAL Patient Name: LEÓN LAFLEUR Date of : 1960 Sex: Female Report Date: 2017-11-22 Report Status: Finalized Findings [facility] [address] [place] [address] XRay Report Signed Patient: LEÓN LAFLEUR MR#: [id number] : 1960 Acct:[id number] Age/Sex: 57 / F ADM Date: 11/21/17 Loc: ED Attending Dr: Ordering Physician: CONY CARVAJAL Date of Service: 11/22/17 Procedure(s): XR chest 1V ap Accession Number(s): [id number] cc: CONY CARVAJAL Fluoro Time In Minutes: FINAL REPORT EXAM: XR CHEST 1V AP HISTORY: chest pain COMPARISON: July 2017 FINDINGS: Frontal view(s) of the chest obtained. Stable mild cardiac enlargement. No focal consolidation or effusion. No pneumothorax. Prior plate screw fixation of the lower cervical spine. IMPRESSION: No grossly acute findings. Stable cardiac enlargement. Transcribed By: LMA Dictated By: ALEJO LEONARDO MD Electronically Authenticated By: ALEJO LEONARDO MD Signed Date/Time: 11/22/17235 DD/ 5 TD/TT: 11/22/17235 - Medical Decision Making Patient stated that she is feeling much better. Lungs clear almost side advised the patient for primary care physician in the next 2-3 days and to return to the ER if her symptoms are not improving. Critical care attestation.: If time is entered above; I have spent that time in minutes in the direct care of this critically ill patient, excluding procedure time. ED Disposition Clinical Impression: COPD exacerbation, Acute bronchitis, Chest pain, Shortness of breath Disposition: - TO HOME OR SELFCARE Is pt being admited?: No Condition: Stable Instructions: Chest Pain (ED), Acute Bronchitis (ED), Chronic Obstructive Pulmonary Disease (ED) Referrals: PRIMARY CARE, [Primary Care Provider] - 3-5 Days
--- NOTE | 2017-11-22 02:37 | XRay Report ---
FINAL REPORT EXAM: XR CHEST 1V AP HISTORY: chest pain COMPARISON: July 2017 FINDINGS: Frontal view(s) of the chest obtained. Stable mild cardiac enlargement. No focal consolidation or effusion. No pneumothorax. Prior plate screw fixation of the lower cervical spine. IMPRESSION: No grossly acute findings. Stable cardiac enlargement.
[2017-11-22] MEDS ORDERED: ZOFRAN ODT ONE (03:02)
[2017-11-22] MEDS ORDERED: NORCO 5/325 ONE (03:03)
[2017-11-22] MEDS ORDERED: NORCO 5/325 PO ONE (03:10)
[2017-11-22] MEDS ORDERED: ZOFRAN ODT PO ONE (03:11)
[2017-11-22 03:56] VITALS: BP 138/88
== END 2017-11-22 03:55 | disposition home or self-care (01) ==
LOC: ED 18:57
DX: J44.1 Chronic obstructive pulmonary disease with (acute) exacerbation (principal); J20.9 Acute bronchitis, unspecified; R07.9 Chest pain, unspecified; I11.0 Hypertensive heart disease with heart failure; I25.2 Old myocardial infarction; I25.10 Atherosclerotic heart disease of native coronary artery without angina pectoris; I50.9 Heart failure, unspecified; K21.9 Gastro-esophageal reflux disease without esophagitis; F17.200 Nicotine dependence, unspecified, uncomplicated; Z90.49 Acquired absence of other specified parts of digestive tract; Z98.51 Tubal ligation status; Z90.89 Acquired absence of other organs; Z79.899 Other long term (current) drug therapy; Z79.82 Long term (current) use of aspirin; Z79.01 Long term (current) use of anticoagulants
CPT/HCPCS: 36415; 71045; 80048; 83880; 84484; 85025; 93005; 93010; 94640; 96372; 99284; J2930; Q0162